=== PATIENT | female | born 1930 | race Caucasian/White ===

== ENCOUNTER 2017-06-12 17:10 | Emergency (ER) | payer MEDICARE, OTHER ==
[2017-06-12 18:02] VITALS: BP 172/81
[2017-06-12] MEDS ORDERED: Benzonatate 100 MG Cap PO ONE (19:13)
--- NOTE | 2017-06-12 19:22 | EDM.PDOC ---
ED HPI GENERAL MEDICAL PROBLEM - General Chief Complaint: Respiratory Problem Stated Complaint: SHARP PAINS UNDER RIBS W/COUGH Time Seen by Provider: 06/12/17 18:47 Source of Information: Reports: Patient History Limitations: Reports: No Limitations - History of Present Illness INITIAL COMMENTS - FREE TEXT/NARRATIVE: Patient is a 87-year-old female who presents to the E.D. complaining of intermittent productive cough, epigastric/chest pain, sinus congestion, and runny nose. States she has chronic congestion believed to be related to multiple allergies. States over the past few days has noted clear drainage from her nose. Cough has been intermittent with scant greenish/clear sputum. Pain to the epigastric region has persisted with worsening symptoms with coughing. Pain is described as a sharp pain that waxes and wanes with intensity. States has history of acid reflux with no recent worsening symptoms. Hx of constipation and notes last BM today described as formed, soft, with straining required. She has been passing gas, nothing excessive. Recently was treated for UTI completing treatment this past weekend. Has not had reevaluation to ensure resolution. She has no uti like symptoms with admission to the E.D. Denies SOB, N/V, Fever/Chills, diarrhea, blood in stool, palpitations, swelling to lower extremities or any additional complaints. Past medical history includes: Hypercholesterolemia, anxiety/depression, neuropathy, GERD, hypokalemia, sleep disturbances, osteoarthritis, hypertension , chronic constipation, UTI recurrent, depression, type 2 diabetes Current medications include: See list. 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: Other (see below) Other Treatments VAN DRIVER: coough drops and OTC cough syrup Upper Abdomen Pain Score (Numeric/FACES): 4 - Related Data Allergies Allergy/AdvReac Type Severity Reaction Status Date / Time No Known Allergies Allergy Verified 08/19/15 21:48 Home Meds: Home Meds ALPRAZolam [ALPRAZolam ER] 0.5 mg PO BID 02/08/14 [History] Aspirin [Екатерина Chewable Aspirin] 81 mg PO DAILY 02/08/14 [History] Gabapentin [Neurontin] 300 mg PO BID 02/08/14 [History] Glimepiride [Amaryl] 1 mg PO BID 02/08/14 [History] [place]onson-3 Fatty Acids [Bronson-3] 1,000 mg PO DAILY 02/08/14 [History] metFORMIN [Glucophage] 750 mg PO BID 02/08/14 [History] Sertraline [Zoloft] 50 mg PO BEDTIME 02/06/15 [History] Hydrochlorothiazide 12.5 mg PO DAILY 08/19/15 [History] Ibuprofen 400 mg PO BID PRN 08/19/15 [History] L Acidophil/B Lactis/B Longum [Florajen3] 460 mg PO DAILY 08/19/15 [History] Losartan [Cozaar] 25 mg PO DAILY 08/19/15 [History] Omeprazole 20 mg PO BID 08/19/15 [History] Potassium Chloride [Klor-Con M20] 20 meq PO DAILY 08/19/15 [History] Pravastatin [Pravachol] 10 mg PO MOWEFRSA 08/19/15 [History] traZODone 50 mg PO BEDTIME 08/19/15 [History] Lidocaine/Methyl Malik/Menthol [Lidopro Patch] 1 each TP DAILY 06/25/16 [History] Mirabegron [Myrbetriq] 50 mg PO BEDTIME 06/25/16 [History] Nitrofurantoin Monohyd/M-Cryst [Macrobid 100 mg Capsule] 100 mg PO BID 06/25/16 [History] Acetaminophen [Tylenol] 650 mg PO Q6H tablet 06/26/16 [Rx] Cephalexin [Keflex] 500 mg PO TID #30 capsule 06/26/16 [Rx] Past Medical History HEENT History: Reports: Cataract Cardiovascular History: Reports: High Cholesterol, Hypertension Gastrointestinal History: Reports: Chronic Constipation Genitourinary History: Reports: UTI, 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: Musculoskeletal History: Reports: Other (See Below) Other Musculoskeletal History: spinal stenosis Psychiatric History: Reports: Depression Endocrine/Metabolic History: Reports: Diabetes, Type II - Past Surgical History HEENT Surgical History: Reports: Cataract Surgery, Other (See Below) Social & Family History - Family History Family Medical History: Noncontributory - Tobacco Use Smoking Status *Q: Never Smoker Second Hand Smoke Exposure: No - Caffeine Use Caffeine Use: Reports: Coffee, Soda - Alcohol Use Days Per Week of Alcohol Use: 0 - Recreational Drug Use Recreational Drug Use: No - Living Situation & Occupation Living situation: Reports: , Alone, Assisted Living ED ROS GENERAL - Review of Systems Review Of Systems: See Below Constitutional: Denies: Fever, Chills, Malaise, Weakness, Fatigue, Decreased Appetite HEENT: Reports: Rhinitis. Denies: Ear Pain, Sinus Problem, Throat Pain Respiratory: Reports: Cough (intermittent, mildly productive), Sputum. Denies: Shortness of Breath, Wheezing, Pleuritic Chest Pain, Hemoptysis Cardiovascular: Reports: No Symptoms GI/Abdominal: Reports: Abdominal Pain, Constipation. Denies: Diarrhea, Decreased Appetite, Nausea, Vomiting : Reports: No Symptoms Musculoskeletal: Reports: No Symptoms Skin: Reports: No Symptoms Neurological: Denies: Dizziness, Headache ED EXAM, GENERAL - Physical Exam Exam: See Below Exam Limited By: No Limitations General Appearance: Alert, WD/WN, No Apparent Distress Eye Exam: Bilateral Eye: Normal Inspection, PERRL Ears: Normal External Exam, Normal Canal, Hearing Grossly Normal, Normal TMs Nose: Normal Inspection, Normal Mucosa, No Blood Throat/Mouth: Normal Inspection, Normal Oropharynx, Normal Voice, No Airway Compromise Neck: Normal Inspection, Supple, Non-Tender, Full Range of Motion. No: Lymphadenopathy (L), Lymphadenopathy (R) Respiratory/Chest: No Respiratory Distress, No Accessory Muscle Use, Chest Non- Tender Cardiovascular: Normal Peripheral Pulses, Regular Rate, Rhythm, No Murmur Peripheral Pulses: 2+: Radial (R) GI/Abdominal: Normal Bowel Sounds, Soft, No Organomegaly, No Distention, Tender (noted throughout with palpation. Epigastric > then remainder of the abdomen. ) . No: Guarding, Rigid, Rebound Back Exam: Normal Inspection Extremities: Normal Inspection, Non-Tender, No Pedal Edema, Normal Capillary Refill Neurological: Alert, Oriented, CN II-XII Intact, Normal Cognition, No Motor/ Sensory Deficits Psychiatric: Normal Affect, Normal Mood Skin Exam: Warm, Dry, Intact, Normal Color Course - Vital Signs Last Recorded V/S: Last Vital Signs Temp 97.8 F 06/12/17 17:58 Pulse 82 06/12/17 17:58 Resp 11 L 06/12/17 17:58 BP 172/81 H 06/12/17 17:58 Pulse Ox 97 06/12/17 17:58 - Orders/Labs/Meds Orders: Active Orders 24 hr Category Date Time Status EKG Documentation Completion [RC] STAT Care 06/12/17 19:21 Active Abdomen 2V AP Flat Upright [CR] Stat Exams 06/12/17 19:12 Taken Chest 2V [CR] Stat Exams 06/12/17 19:12 Taken UA W/MICROSCOPIC [URIN] Stat Lab 06/12/17 19:13 Uncollected Labs: Laboratory Tests 06/12/17 06/12/17 06/12/17 Range/Units 19:30 19:30 19:30 WBC 6.67 (3.98-10.04) K/mm3 RBC 3.98 (3.98-5.22) M/mm3 Hgb 11.8 (11.2-15.7) gm/L Hct 35.6 (34.1-44.9) % MCV 89.4 (79.4-94.8) fl MCH 29.6 (25.6-32.2) pg MCHC 33.1 (32.2-35.5) g/dl RDW Std Deviation 42.0 (36.4-46.3) fL Plt Count 205 (182-369) K/mm3 MPV 9.0 L (9.4-12.3) fl Neut % (Auto) 62.5 (34.0-71.1) % Lymph % (Auto) 18.0 L (19.3-51.7) % Clark % (Auto) 16.9 H (4.7-12.5) % Eos % (Auto) 1.9 (0.7-5.8) Baso % (Auto) 0.3 (0.1-1.2) % Neut # (Auto) 4.16 (1.56-6.13) K/mm3 Lymph # (Auto) 1.20 (1.18-3.74) K/mm3 Clark # (Auto) 1.13 H (0.24-0.36) K/mm3 Eos # (Auto) 0.13 (0.04-0.36) K/mm3 Baso # (Auto) 0.02 (0.01-0.08) K/mm3 Manual Slide Review Normal smear Sodium 134 L (136-145) mEq/L Potassium 3.7 (3.5-5.1) mEq/L Chloride 97 L (98-107) mEq/L Carbon Dioxide 30 (21-32) mEq/L Anion Gap 10.7 (5-15) BUN 11 (7-18) mg/dL Creatinine 1.1 H (0.55-1.02) mg/dL Est Cr Clr Drug Dosing 33.73 mL/min Estimated GFR (MDRD) 47 (>60) mL/min BUN/Creatinine Ratio 10.0 L (14-18) Glucose 186 H (83-115) mg/dL POC Glucose (83-110) mg/dL Calcium 9.0 (8.5-10.1) mg/dL Total Bilirubin 0.3 (0.2-1.0) mg/dL AST 14 L (15-37) U/L ALT 14 (14-59) U/L Alkaline Phosphatase 59 (46-116) U/L Troponin I < 0.017 (0.00-0.056) ng/mL C-Reactive Protein 0.8 (<1.0) mg/dL Total Protein 6.4 (6.4-8.2) g/dl Albumin 3.2 L (3.4-5.0) g/dl Globulin 3.2 gm/dL Albumin/Globulin Ratio 1.0 (1-2) Lipase 104 (73-393) U/L 06/12/17 Range/Units 20:20 WBC (3.98-10.04) K/mm3 RBC (3.98-5.22) M/mm3 Hgb (11.2-15.7) gm/L Hct (34.1-44.9) % MCV (79.4-94.8) fl MCH (25.6-32.2) pg MCHC (32.2-35.5) g/dl RDW Std Deviation (36.4-46.3) fL Plt Count (182-369) K/mm3 MPV (9.4-12.3) fl Neut % (Auto) (34.0-71.1) % Lymph % (Auto) (19.3-51.7) % Clark % (Auto) (4.7-12.5) % Eos % (Auto) (0.7-5.8) Baso % (Auto) (0.1-1.2) % Neut # (Auto) (1.56-6.13) K/mm3 Lymph # (Auto) (1.18-3.74) K/mm3 Clark # (Auto) (0.24-0.36) K/mm3 Eos # (Auto) (0.04-0.36) K/mm3 Baso # (Auto) (0.01-0.08) K/mm3 Manual Slide Review Sodium (136-145) mEq/L Potassium (3.5-5.1) mEq/L Chloride (98-107) mEq/L Carbon Dioxide (21-32) mEq/L Anion Gap (5-15) BUN (7-18) mg/dL Creatinine (0.55-1.02) mg/dL Est Cr Clr Drug Dosing mL/min Estimated GFR (MDRD) (>60) mL/min BUN/Creatinine Ratio (14-18) Glucose (83-115) mg/dL POC Glucose 162 H (83-110) mg/dL Calcium (8.5-10.1) mg/dL Total Bilirubin (0.2-1.0) mg/dL AST (15-37) U/L ALT (14-59) U/L Alkaline Phosphatase (46-116) U/L Troponin I (0.00-0.056) ng/mL C-Reactive Protein (<1.0) mg/dL Total Protein (6.4-8.2) g/dl Albumin (3.4-5.0) g/dl Globulin gm/dL Albumin/Globulin Ratio (1-2) Lipase (73-393) U/L Meds: Medications Discontinued Medications Generic Name Dose Route Start Last Admin Trade Name Freq PRN Reason Stop Dose Admin Benzonatate 200 mg 06/12/17 19:13 06/12/17 19:21 Tessalon Perles PO 06/12/17 19:14 200 mg ONETIME ONE Administration - Re-Assessments/Exams Free Text/Narrative Re-Assessment/Exam: Basic labs and studies ordered include: CBC, chem 14, lipase, UA, ekg, troponin , CRP, two-view of the chest, and 2 view of the abdomen flat and upright. Ordered Tessalon Perles 200 mg by mouth. No IV fluids or IV will be established this time oral mucosal is moist. I believe the patient's symptoms are's related to upper respiratory viral infection. Epigastric pain is worsened with coughing and palpation. She has a history constipation and states has had difficulty having a BM. In addition she also has history of recent urinary tract infection that was treated with oral antibiotics completed this past week. She has not been evaluated to ensure resolution. She has no uti like symptoms at this time. She did urinate with admission to the ED. No samples obtained. Labs reviewed: CBC was essentially normal. She panel revealed sodium 134, potassium 3.7, creatinine 1.1, glucose 186, troponin less than 0.017, lipase 104. CRP 0.8. X-ray of the abdomen revealed nonspecific air in stool patterns. Patient is feeling hungry and wishing to eat something. Rapid bedside blood glucose was checked and came back in the 160s. He will not wait for UA sample. They will follow up with PCP for reevaluation this week. Patient is wishing to be discharged home. Departure - Departure Time of Disposition: 20:30 Disposition: Home, Self-Care 01 Condition: Good Clinical Impression: Viral upper respiratory tract infection with cough, Epigastric abdominal pain Constipation Qualifiers: Constipation type: unspecified constipation type Qualified Code(s): K59.00 - Constipation, unspecified - Discharge Information Instructions: Upper Respiratory Infection, Adult, Dxhu-[id number] Referrals: PCP,None [Primary Care Provider] - Forms: ED Department Discharge Additional Instructions: As discussed believe etiology current complaint viral and will run its course of the next few days. Treatment is symptomatic care including Flonase 1-2 sprays each nares every day, nasal saline spray 1-2 sprays each nares every hour as needed, adequate rest, push the fluids, eat a balanced diet. For cough take Tessalon Perles one tab three times a day as needed. Treatment for recurrent constipation suggest utilizing MiraLAX one capful every day with copious amounts of water. With your constipation history suggest utilizing this on a daily basis for life. Follow-up with your PCP this coming week for reevaluation. Again UA sample should be obtained to ensure resolution. Return to ED for any new or worsening symptoms. - My Orders Last 24 Hours: My Active Orders 06/12/17 19:12 Abdomen 2V AP Flat Upright [CR] Stat Chest 2V [CR] Stat 06/12/17 19:13 UA W/MICROSCOPIC [URIN] Stat 06/12/17 19:21 EKG Documentation Completion [RC] STAT - Assessment/Plan Last 24 Hours: My Active Orders 06/12/17 19:12 Abdomen 2V AP Flat Upright [CR] Stat Chest 2V [CR] Stat 06/12/17 19:13 UA W/MICROSCOPIC [URIN] Stat 06/12/17 19:21 EKG Documentation Completion [RC] STAT
--- NOTE | 2017-06-14 12:49 | CR ---
Chest: Two views of the chest were obtained. Comparison: Previous chest x-ray of 02/06/15. Heart size is within normal limits. Tortuous thoracic aorta is seen. Slight scarring noted within the right lung base. Lungs otherwise are clear. Bony structures are unremarkable for the patient's age. Surgical clips are seen within the upper abdomen. Impression: 1. Incidental findings. Nothing acute is identified on two-view chest x-ray. Diagnostic code #2
--- NOTE | 2017-06-14 12:49 | CR ---
Abdomen: Supine and upright views of the abdomen were obtained. Comparison: Previous abdominal x-ray of 07/21/10. Surgical clips are seen from prior cholecystectomy. Mild scoliosis is noted within the spine. Previous lumbar laminectomy is seen. Scattered gas within small bowel and colon is seen which appears unremarkable. Vascular calcification is seen. Calcifications are identified within the pelvis which are compatible with phleboliths. Single surgical clip is seen within the pelvis. Impression: 1. Incidental findings. Nothing acute is appreciated. Diagnostic code #2
== END 2017-06-12 20:45 | disposition home or self-care (01) ==
LOC: JD.ED 17:10
DX: J06.9 Acute upper respiratory infection, unspecified (principal); K59.00 Constipation, unspecified; E78.00 Pure hypercholesterolemia, unspecified; K21.9 Gastro-esophageal reflux disease without esophagitis; E11.9 Type 2 diabetes mellitus without complications; I10 Essential (primary) hypertension; R10.13 Epigastric pain; Z79.82 Long term (current) use of aspirin; Z79.84 Long term (current) use of oral hypoglycemic drugs; Z79.899 Other long term (current) drug therapy; Z98.49 Cataract extraction status, unspecified eye; Z87.440 Personal history of urinary (tract) infections
CPT/HCPCS: 36415; 71020; 74020; 80053; 82962; 83690; 84484; 85025; 86140; 93005; 99284; A9270; 99283

== ENCOUNTER 2018-02-19 19:42 | Emergency (ER) | payer MEDICARE, OTHER ==
[2018-02-19 20:09] VITALS: BP 141/68
--- NOTE | 2018-02-19 23:32 | EDM.PDOC ---
ED HPI GENERAL MEDICAL PROBLEM - General Chief Complaint: Gastrointestinal Problem Stated Complaint: BLOOD IN STOOL AND CONSTIPATION Time Seen by Provider: 02/19/18 20:20 Source of Information: Reports: Patient History Limitations: Reports: No Limitations - History of Present Illness INITIAL COMMENTS - FREE TEXT/NARRATIVE: 87 year old female presents for evaluation and treatment of blood in her stool and constipation. Patient reports she has not had a significant bowel movement in the last 4-5 days, did have a small BM prior to arrival in the ER. Reports lower abdominal pressure and bloating. She takes colace on a regular basis and took some miralax a few days ago. No fevers, chills, nausea or vomiting. Patient reports she had a colonscopy a few years ago. Patient also reports bright red blood in her stool and on the tissue when she wipes. She does not know if she has a history of hemorrhoids. Reports some minor discomfort to her bottom. No melena. No dizziness, lightheadedness or syncope. - Related Data Allergies Allergy/AdvReac Type Severity Reaction Status Date / Time No Known Allergies Allergy Verified 08/19/15 21:48 Home Meds: Home Meds Aspirin [Екатерина Chewable Aspirin] 81 mg PO DAILY 02/08/14 [History] Gabapentin [Neurontin] 300 mg PO BID 02/08/14 [History] Glimepiride [Amaryl] 1 mg PO BID 02/08/14 [History] [place]-3 Fatty Acids [[place]-3] 1,000 mg PO DAILY 02/08/14 [History] metFORMIN [Glucophage] 750 mg PO BID 02/08/14 [History] Sertraline [Zoloft] 50 mg PO BEDTIME 02/06/15 [History] Hydrochlorothiazide 12.5 mg PO DAILY 08/19/15 [History] Ibuprofen 600 mg PO BID PRN 08/19/15 [History] Losartan [Cozaar] 25 mg PO DAILY 08/19/15 [History] Omeprazole 20 mg PO DAILY 08/19/15 [History] Potassium Chloride [Klor-Con M20] 20 meq PO DAILY 08/19/15 [History] Pravastatin [Pravachol] 10 mg PO MOWEFRSA 08/19/15 [History] traZODone 50 mg PO BEDTIME 08/19/15 [History] Lidocaine/Methyl Malik/Menthol [Lidopro Patch] 1 each TP DAILY 06/25/16 [History] Mirabegron [Myrbetriq] 50 mg PO BEDTIME 06/25/16 [History] Acetaminophen [Tylenol] 650 mg PO Q8HR 02/19/18 [History] Lactobacillus Acidophilus [Acidophilus Lactobacilli] 1 tab PO BID 02/19/18 [ History] Polyethylene Glycol 3350 17 gm PO ASDIRECTED PRN 02/19/18 [History] Past Medical History HEENT History: Reports: Cataract Cardiovascular History: Reports: High Cholesterol, Hypertension Gastrointestinal History: Reports: Chronic Constipation Genitourinary History: Reports: 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, 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: Musculoskeletal History: Reports: Other (See Below) Other Musculoskeletal History: spinal stenosis Psychiatric History: Reports: Depression Endocrine/Metabolic History: Reports: Diabetes, Type II - Past Surgical History HEENT Surgical History: Reports: Cataract Surgery Social & Family History - Family History Family Medical History: Noncontributory - Tobacco Use Smoking Status *Q: Never Smoker - Caffeine Use Caffeine Use: Reports: Coffee, Soda - Recreational Drug Use Recreational Drug Use: No - Living Situation & Occupation Living situation: Reports: , Alone, Assisted Living ED ROS GENERAL - Review of Systems Review Of Systems: See Below Constitutional: Denies: Fever, Chills GI/Abdominal: Reports: Abdominal Pain (pressure), Flatus (continues to pass flatus), Hematochezia. Denies: Melena, Nausea, Vomiting Neurological: Denies: Dizziness, Syncope ED EXAM, GI/ABD - Physical Exam Exam: See Below Exam Limited By: No Limitations General Appearance: Alert, WD/WN, No Apparent Distress Ears: Normal External Exam Nose: Normal Inspection Throat/Mouth: Normal Inspection, Normal Lips, Normal Voice, No Airway Compromise Respiratory/Chest: No Respiratory Distress, Lungs Clear, Normal Breath Sounds Cardiovascular: Normal Peripheral Pulses, Regular Rate, Rhythm, No Murmur GI/Abdominal Exam: Normal Bowel Sounds, Soft, Non-Tender Rectal (Female) Exam: Normal Exam, Normal Rectal Tone, Hemorrhoids. No: Fecal Impaction, Heme - Stool Neurological: Alert, Oriented, Normal Cognition Psychiatric: Normal Affect, Normal Mood Skin Exam: Warm, Dry, Normal Color Course - Vital Signs Last Recorded V/S: Last Vital Signs Temp 98.5 F 02/19/18 20:02 Pulse 85 02/19/18 20:02 Resp 16 02/19/18 20:02 BP 141/68 H 02/19/18 20:02 Pulse Ox 92 L 02/19/18 20:02 - Radiology Interpretation Free Text/Narrative:: flat and upright abdominal xray shows no acute process. Normal gas bowel pattern. - Re-Assessments/Exams Free Text/Narrative Re-Assessment/Exam: 02/19/18 22:20 I reviewed the xray results with the patient and her daughter. Will give the patient an enema here in the ER for constipation. 02/19/18 23:30 Patient has had a large bowel movement in the ER. Will discharge home at this time. Discharge instructions as documented. 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 Recommendations take MiraLAX every day or every other day. Make sure you are drinking plenty of fluids. For severe constipation you may take magnesium citrate. This is available over- the-counter. Drink about half of the 300 the bottle, if you do not have a large bowel movement you may drink the second half of the bottle about 12 hours later. Follow-up with your primary care provider as needed. Please return to the ER for symptoms change or worsen.
--- NOTE | 2018-02-21 11:27 | CR ---
Abdomen: Supine and upright views of the abdomen were obtained. Comparison: Prior abdominal x-ray of 06/12/17. Scoliosis and degenerative change is noted within the spine. Surgical clips are seen from prior cholecystectomy. Single surgical clip is also seen within the pelvis. Calcifications are identified within the pelvis compatible with phleboliths. Vascular calcification is noted. Bowel gas pattern appears within normal limits. No free air is seen. Impression: 1. Incidental findings as noted above. Diagnostic code #2
== END 2018-02-19 23:49 | disposition home or self-care (01) ==
LOC: JD.ED 19:42
DX: K64.9 Unspecified hemorrhoids (principal); I10 Essential (primary) hypertension; E11.9 Type 2 diabetes mellitus without complications; Z79.82 Long term (current) use of aspirin; Z79.899 Other long term (current) drug therapy
CPT/HCPCS: 74019; 74019-26; 99283

== ENCOUNTER 2018-09-09 17:25 | Emergency (ER) | payer MEDICARE, OTHER ==
[2018-09-09 17:42] VITALS: BP 182/85
[2018-09-09] MEDS ORDERED: Sodium Chloride 0.9% 500 ML IV ONE (18:18)
[2018-09-09] MEDS ORDERED: Ondansetron 4 MG/2 ML SDV IVPUSH ONE (18:18)
[2018-09-09] MEDS ORDERED: Sodium Chloride 0.9% 10 ML Syringe FLUSH PRN (18:18)
--- NOTE | 2018-09-09 19:58 | EDM.PDOC ---
ED HPI GENERAL MEDICAL PROBLEM - General Chief Complaint: Abdominal Pain Stated Complaint: DIAGNOSED WITH PNEUMONIA NOW HAS PAIN Time Seen by Provider: 09/09/18 18:16 Source of Information: Reports: Patient, RN Notes Reviewed - History of Present Illness INITIAL COMMENTS - FREE TEXT/NARRATIVE: 88-year-old female had difficulty with severe coughing 2 nights ago. Was seen at [facility] yesterday, started on Levaquin for what sounds like a mild pneumonia. She was already having some diarrhea yesterday. Today the diarrhea is much worse. It has been watery, somewhat frequent this past morning, not as bad this afternoon. She is also having left lower abdominal discomfort. Today she has not been coughing much at all. She's not been running fever today. She has not been vomiting. She has been thirsty, she has been drinking a lot of water. She did eat a small breakfast, she did have a hamburger for lunch. She is had some crackers this afternoon. No chest pain, she is not short of breath. Left Abdomen Pain Score (Numeric/FACES): 8 - Related Data Allergies Allergy/AdvReac Type Severity Reaction Status Date / Time No Known Allergies Allergy Verified 09/09/18 17:42 Home Meds: Home Meds Aspirin [Екатерина Chewable Aspirin] 81 mg PO DAILY 02/08/14 [History] Gabapentin [Neurontin] 300 mg PO BID 02/08/14 [History] Glimepiride [Amaryl] 1 mg PO BID 02/08/14 [History] [place]-3 Fatty Acids [[place]-3] 1,000 mg PO DAILY 02/08/14 [History] metFORMIN [Glucophage] 750 mg PO BID 02/08/14 [History] Ibuprofen 600 mg PO BID PRN 08/19/15 [History] Losartan [Cozaar] 25 mg PO DAILY 08/19/15 [History] Omeprazole 20 mg PO DAILY 08/19/15 [History] Potassium Chloride [Klor-Con M20] 20 meq PO DAILY 08/19/15 [History] Pravastatin [Pravachol] 10 mg PO MOWEFRSA 08/19/15 [History] hydroCHLOROthiazide [Hydrochlorothiazide] 12.5 mg PO DAILY 08/19/15 [History] traZODone 50 mg PO BEDTIME 08/19/15 [History] Lidocaine/Methyl [place]ik/Menthol [Lidopro Patch] 1 each TP DAILY PRN 06/25/16 [ History] Mirabegron [Myrbetriq] 50 mg PO BEDTIME 06/25/16 [History] Lactobacillus Acidophilus [Acidophilus Lactobacilli] 1 tab PO BIDMEALS 02/19/18 [History] Polyethylene Glycol 3350 17 gm PO ASDIRECTED 02/19/18 [History] ALPRAZolam [Xanax] 0.5 mg PO BID 09/09/18 [History] Acetaminophen [Tylenol] 650 mg PO TID 09/09/18 [History] Benzonatate 200 mg PO TID PRN 09/09/18 [History] Docusate Sodium [Colace] 100 mg PO TID 09/09/18 [History] Levofloxacin [Levaquin] 500 mg PO DAILY 09/09/18 [History] Loratadine [Claritin] 10 mg PO BEDTIME 09/09/18 [History] Sertraline [Zoloft] 50 mg PO BEDTIME 09/09/18 [History] Past Medical History HEENT History: Reports: Cataract Cardiovascular History: Reports: High Cholesterol, Hypertension Respiratory History: Reports: Pneumonia, Recurrent Gastrointestinal History: Reports: Chronic Constipation Genitourinary History: Reports: UTI, Recurrent CARDIOVASCULAR SURGICAL TECH History: Reports: Musculoskeletal History: Reports: Other (See Below) Other Musculoskeletal History: spinal stenosis Psychiatric History: Reports: Depression Endocrine/Metabolic History: Reports: Diabetes, Type II - Past Surgical History HEENT Surgical History: Reports: Cataract Surgery Social & Family History - Family History Family Medical History: Noncontributory - Tobacco Use Smoking Status *Q: Never Smoker - Caffeine Use Caffeine Use: Reports: None - Recreational Drug Use Recreational Drug Use: No - Living Situation & Occupation Living situation: Reports: , Alone, Assisted Living ED ROS GENERAL - Review of Systems Review Of Systems: See Below Constitutional: Denies: Fever, Chills, Diaphoresis HEENT: Denies: Rhinitis, Sinus Problem, Throat Pain Respiratory: Reports: Cough (now better). Denies: Shortness of Breath, Wheezing Cardiovascular: Denies: Chest Pain GI/Abdominal: Reports: Abdominal Pain (Left lower abdomen), Diarrhea (Watery, worse yesterday and this past morning), Nausea. Denies: Vomiting Musculoskeletal: Denies: Back Pain, Leg Pain Skin: Reports: No Symptoms Neurological: Reports: No Symptoms ED EXAM, GI/ABD - Physical Exam Exam: See Below General Appearance: Alert, No Apparent Distress Throat/Mouth: Normal Inspection Neck: Supple Respiratory/Chest: No Respiratory Distress, Lungs Clear, Normal Breath Sounds. No: Rhonchi, Wheezing Cardiovascular: Regular Rate, Rhythm GI/Abdominal Exam: Soft, Tender. No: Guarding, Rebound (Mild tenderness left lower abdomen, remainder of abdomen soft and nontender) Back Exam: No: CVA Tenderness (L), CVA Tenderness (R) Extremities: Normal Inspection. No: Pedal Edema, Leg Pain Neurological: Alert, Oriented, No Motor/Sensory Deficits Skin Exam: Warm, Dry, Normal Color Course - Vital Signs Last Recorded V/S: Last Vital Signs Temp 98.6 F 09/09/18 17:36 Pulse 80 09/09/18 17:36 Resp 20 09/09/18 17:36 BP 182/85 H 09/09/18 17:36 Pulse Ox 100 09/09/18 17:36 - Orders/Labs/Meds Orders: Active Orders 24 hr Category Date Time Status Peripheral IV Care [RC] . DIRECTED Care 09/09/18 18:18 Active C DIFFICILE BY PCR W/NAP1 [MOLEC] Stat Lab 09/09/18 18:19 Ordered Peripheral IV Insertion Adult [OM.PC] Stat Oth 09/09/18 18:18 Ordered Labs: Laboratory Tests 09/09/18 09/09/18 09/09/18 Range/Units 18:01 19:01 19:01 WBC 8.41 (3.98-10.04) K/mm3 RBC 4.06 (3.98-5.22) M/mm3 Hgb 12.1 (11.2-15.7) gm/L Hct 36.2 (34.1-44.9) % MCV 89.2 (79.4-94.8) fl MCH 29.8 (25.6-32.2) pg MCHC 33.4 (32.2-35.5) g/dl RDW Std Deviation 41.3 (36.4-46.3) fL Plt Count 276 (182-369) K/mm3 MPV 8.6 L (9.4-12.3) fl Neutrophils % (Manual) 64 H (40-60) % Band Neutrophils % 0 (0-10) % Lymphocytes % (Manual) 18 L (20-40) % Atypical Lymphs % 0 % Monocytes % (Manual) 17 H (2-10) % Eosinophils % (Manual) 1 (0.7-5.8) % Basophils % (Manual) 0 L (0.1-1.2) Toxic Granulation 1+ slight Dohle Bodies Few Platelet Estimate Adequate Plt Morphology Comment Normal RBC Morph Comment Normal Sodium 127 L (136-145) mEq/L Potassium 4.0 (3.5-5.1) mEq/L Chloride 92 L (98-107) mEq/L Carbon Dioxide 29 (21-32) mEq/L Anion Gap 10.0 (5-15) BUN 8 (7-18) mg/dL Creatinine 1.0 (0.55-1.02) mg/dL Est Cr Clr Drug Dosing 34.99 mL/min Estimated GFR (MDRD) 52 (>60) mL/min BUN/Creatinine Ratio 8.0 L (14-18) Glucose 195 H (83-115) mg/dL POC Glucose 224 H (83-110) mg/dL Calcium 9.0 (8.5-10.1) mg/dL Total Bilirubin 0.3 (0.2-1.0) mg/dL AST 13 L (15-37) U/L ALT 15 (14-59) U/L Alkaline Phosphatase 64 (46-116) U/L Total Protein 6.9 (6.4-8.2) g/dl Albumin 2.9 L (3.4-5.0) g/dl Globulin 4.0 gm/dL Albumin/Globulin Ratio 0.7 L (1-2) Meds: Medications Discontinued Medications Generic Name Dose Route Start Last Admin Trade Name Freq PRN Reason Stop Dose Admin Sodium Chloride 500 mls @ 999 mls/hr 09/09/18 18:18 09/09/18 19:01 Normal Saline IV 09/09/18 18:48 999 mls/hr .BOLUS ONE Administration Morphine Sulfate 2 mg 09/09/18 20:10 09/09/18 20:26 Morphine IVPUSH 09/09/18 20:11 2 mg ONETIME ONE Administration Ondansetron HCl 4 mg 09/09/18 18:18 09/09/18 19:19 Zofran IVPUSH 09/09/18 18:19 Not Given ONETIME ONE Sodium Chloride 10 ml 09/09/18 18:18 09/09/18 19:01 Saline Flush FLUSH 10 ml ASDIRECTED PRN Administration Keep Vein Open Zolpidem Tartrate 5 mg 09/09/18 20:14 Ambien PO BEDTIME PRN Insomnia Zolpidem Tartrate 5 mg 09/09/18 20:21 09/09/18 20:34 Ambien PO 09/09/18 20:22 2.5 mg BEDTIME ONE Administration - Re-Assessments/Exams Free Text/Narrative Re-Assessment/Exam: 09/09/18 20:26 White blood count is normal. 64 segs 0 bands. She is afebrile, not coughing while here in the ED, her chest x-ray does not show obvious infiltrate at this time her chemistries are relatively okay, sodium mildly low at 127. She has been drinking a lot of water today. Have given most of 1 L of normal saline. We' ll give 2 mg morphine now for mild discomfort left lower abdomen. Her daughter states that a big problem has been not been able to sleep much the last 2 nights. Looking at her meds she does take trazodone in the evening and also is on Xanax 0.5 twice a day. Patient and daughter states she has had great difficulty sleeping even with those meds. We will go ahead and give her 2.5 mg Ambien tonight and also send the other half home to help her better rest tomorrow evening. Discharge instructions as documented. Departure - Departure Time of Disposition: 20:19 Disposition: Home, Self-Care 01 Condition: Fair Clinical Impression: Diarrhea Qualifiers: Diarrhea type: unspecified type Qualified Code(s): R19.7 - Diarrhea, unspecified Abdominal pain Qualifiers: Abdominal location: left lower quadrant Qualified Code(s): R10.32 - Left lower quadrant pain Insomnia Qualifiers: Insomnia type: unspecified Qualified Code(s): G47.00 - Insomnia, unspecified - Discharge Information Instructions: Abdominal Pain, Adult, Insomnia Referrals: Andi Winston MD [Primary Care Provider] - Forms: ED Department Discharge Additional Instructions: Clear liquids until tomorrow afternoon, then very careful bland diet as tolerated. Avoid milk and dairy products for at least 2 days. Increase probiotic to twice daily. Your chest x-ray this evening does not show obvious pneumonia. White blood count is normal. Therefore it is safe and will be better to stop the Levaquin antibiotic. You have been given morphine 2 mg IV for pain. Given IV fluid, Zofran IV for nausea. You've been given Ambien 2.5 mg IV to help you sleep. He may take the remaining 2.5 mg Ambien tomorrow evening to help you sleep better tomorrow night. Follow-up clinic if not better by Wednesday. Return to ED as needed if symptoms worsening in any way. - My Orders Last 24 Hours: My Active Orders 09/09/18 18:18 Peripheral IV Care [RC] . DIRECTED Peripheral IV Insertion Adult [OM.PC] Stat 09/09/18 18:19 C DIFFICILE BY PCR W/NAP1 [MOLEC] Stat - Assessment/Plan Last 24 Hours: My Active Orders 09/09/18 18:18 Peripheral IV Care [RC] . DIRECTED Peripheral IV Insertion Adult [OM.PC] Stat 09/09/18 18:19 C DIFFICILE BY PCR W/NAP1 [MOLEC] Stat
[2018-09-09] MEDS ORDERED: Morphine 2 MG/ML Syringe IVPUSH ONE (20:10)
[2018-09-09] MEDS ORDERED: Zolpidem 5 MG Tab PO PRN (20:14)
[2018-09-09] MEDS ORDERED: Zolpidem 5 MG Tab PO ONE (20:21)
--- NOTE | 2018-09-10 08:32 | CR ---
Chest: Portable view of the chest was obtained. Comparison: Prior chest x-ray of 06/12/17. Heart size appears within normal limits for portable technique. Tortuous thoracic aorta is seen. Lungs are clear with no acute parenchymal change. Incidental note of minimal bibasilar atelectasis. Bony structures are osteopenic. Impression: 1. Incidental findings. Nothing acute is appreciated. Diagnostic code #2
== END 2018-09-09 21:02 | disposition home or self-care (01) ==
LOC: JD.ED 17:25
DX: G47.00 Insomnia, unspecified (principal); R19.7 Diarrhea, unspecified; R10.32 Left lower quadrant pain; I10 Essential (primary) hypertension; E11.9 Type 2 diabetes mellitus without complications; E78.00 Pure hypercholesterolemia, unspecified; Z79.82 Long term (current) use of aspirin; Z79.899 Other long term (current) drug therapy; Z79.84 Long term (current) use of oral hypoglycemic drugs
CPT/HCPCS: 36415; 71045; 80053; 82962; 85007; 85027; 96361; 96374; 99284; A9270; J2270; J7040

== ENCOUNTER 2019-05-16 17:45 | Emergency (ER) | payer MEDICARE, OTHER ==
[2019-05-16] MEDS ORDERED: Acetaminophen/HYDROcodone 325-5 MG Tab PO ONE (18:40)
--- NOTE | 2019-05-16 20:58 | EDM.PDOC ---
ED HPI GENERAL MEDICAL PROBLEM - General Chief Complaint: General Stated Complaint: PAIN IN ENTIRE BODY Time Seen by Provider: 05/16/19 18:30 Source of Information: Reports: Patient, Family History Limitations: Reports: No Limitations - History of Present Illness INITIAL COMMENTS - FREE TEXT/NARRATIVE: 89-year-old female presents for evaluation and treatment of body aches. Patient reports body aches for the last few days. Has been treated with Tylenol and Motrin for the body aches. was at the walk-in clinic 3 days ago and had a UA which is negative. Daughter reports she is prone to UTIs. Current symptoms include body aches, nausea, poor appetite, bilateral leg pain, low back pain and malaise. She did have some abdominal pain yesterday. No chest pain, cough or any vomiting. She states that she's had "a little bit "of diarrhea. She also reports some "pressure in her head ". She has not had any falls recently. She always has back pain but feels that the back pain is worse than normal. She history spinal stenosis. She also has a history of type 2 diabetes. Primary care providers is Jasmin Carlson Generalized Pain Score (Numeric/FACES): 8 - Related Data Allergies Allergy/AdvReac Type Severity Reaction Status Date / Time No Known Allergies Allergy Verified 04/01/19 21:14 Home Meds: Home Meds Aspirin [Екатерина Chewable Aspirin] 81 mg PO DAILY 02/08/14 [History] Gabapentin [Neurontin] 300 mg PO BID 02/08/14 [History] Glimepiride [Amaryl] 1 mg PO BID 02/08/14 [History] [place]-3 Fatty Acids [[place]-3] 1,000 mg PO DAILY 02/08/14 [History] metFORMIN [Glucophage] 750 mg PO BID 02/08/14 [History] Ibuprofen 600 mg PO BID PRN 08/19/15 [History] Losartan [Cozaar] 25 mg PO DAILY 08/19/15 [History] Omeprazole 20 mg PO DAILY 08/19/15 [History] Potassium Chloride [Klor-Con M20] 20 meq PO DAILY 08/19/15 [History] Pravastatin [Pravachol] 10 mg PO MOWEFRSA 08/19/15 [History] hydroCHLOROthiazide [Hydrochlorothiazide] 12.5 mg PO DAILY 08/19/15 [History] traZODone 50 mg PO BEDTIME 08/19/15 [History] Lidocaine/Methyl [place]/Menthol [Lidopro Patch] 1 each TP DAILY PRN 06/25/16 [ History] Mirabegron [Myrbetriq] 50 mg PO BEDTIME 06/25/16 [History] Lactobacillus Acidophilus [Acidophilus Lactobacilli] 1 tab PO BIDMEALS 02/19/18 [History] Polyethylene Glycol 3350 17 gm PO ASDIRECTED 02/19/18 [History] ALPRAZolam [Xanax] 0.5 mg PO BID 09/09/18 [History] Acetaminophen [Tylenol] 650 mg PO TID 09/09/18 [History] Benzonatate 200 mg PO TID PRN 09/09/18 [History] Docusate Sodium [Colace] 100 mg PO TID 09/09/18 [History] Loratadine [Claritin] 10 mg PO BEDTIME 09/09/18 [History] Sertraline [Zoloft] 50 mg PO BEDTIME 09/09/18 [History] traMADol [Ultram] 50 - 100 mg PO Q6H PRN #20 tab 04/01/19 [Rx] Cephalexin [Keflex] 500 mg PO BID #10 capsule 05/16/19 [Rx] Past Medical History HEENT History: Reports: Cataract Cardiovascular History: Reports: High Cholesterol, Hypertension Respiratory History: Reports: Pneumonia, Recurrent Gastrointestinal History: Reports: Chronic Constipation Genitourinary History: Reports: UTI, Recurrent [employer] History: Reports: Musculoskeletal History: Reports: Other (See Below) Other Musculoskeletal History: spinal stenosis Psychiatric History: Reports: Depression Endocrine/Metabolic History: Reports: Diabetes, Type II - Past Surgical History HEENT Surgical History: Reports: Cataract Surgery Social & Family History - Family History Family Medical History: Noncontributory - Tobacco Use Smoking Status *Q: Never Smoker Second Hand Smoke Exposure: No - Caffeine Use Caffeine Use: Reports: None - Recreational Drug Use Recreational Drug Use: No - Living Situation & Occupation Living situation: Reports: , Alone, Assisted Living ED ROS GENERAL - Review of Systems Review Of Systems: See Below Constitutional: Reports: Chills, Malaise, Fatigue, Decreased Appetite, Other ( Body aches). Denies: Fever Respiratory: Denies: Cough Cardiovascular: Denies: Chest Pain GI/Abdominal: Reports: Nausea. Denies: Abdominal Pain (Yesterday, none today), Vomiting Musculoskeletal: Reports: Back Pain (Chronic feels it is worse than normal), Leg Pain (Bilateral) Neurological: Reports: Headache (Reports pressure in her head) ED EXAM, GENERAL - Physical Exam Exam: See Below Exam Limited By: No Limitations General Appearance: Alert, WD/WN, No Apparent Distress Eye Exam: Bilateral Eye: Normal Inspection Ears: Normal External Exam, Hearing Loss Nose: Normal Inspection Throat/Mouth: Normal Inspection, Normal Lips, Normal Oropharynx, Normal Voice, No Airway Compromise Respiratory/Chest: No Respiratory Distress, Lungs Clear, Normal Breath Sounds Cardiovascular: Normal Peripheral Pulses, Regular Rate, Rhythm, No Murmur GI/Abdominal: Normal Bowel Sounds, Soft, Non-Tender Neurological: Alert, Oriented, Normal Cognition Psychiatric: Normal Affect, Normal Mood Skin Exam: Warm, Dry, Normal Color Course - Vital Signs Last Recorded V/S: Last Vital Signs Temp 97.4 F 05/16/19 17:55 Pulse 81 05/16/19 21:17 Resp 16 05/16/19 21:17 BP 163/69 H 05/16/19 21:17 Pulse Ox 93 L 05/16/19 21:17 - Orders/Labs/Meds Labs: Laboratory Tests 05/16/19 05/16/19 05/16/19 Range/Units 09:22 18:55 18:55 WBC 6.74 (3.98-10.04) K/mm3 RBC 4.23 (3.98-5.22) M/mm3 Hgb 12.4 (11.2-15.7) gm/L Hct 37.6 (34.1-44.9) % MCV 88.9 (79.4-94.8) fl MCH 29.3 (25.6-32.2) pg MCHC 33.0 (32.2-35.5) g/dl RDW Std Deviation 42.1 (36.4-46.3) fL Plt Count 243 (182-369) K/mm3 MPV 9.0 L (9.4-12.3) fl Neutrophils % (Manual) 64 H (40-60) % Band Neutrophils % 0 (0-10) % Lymphocytes % (Manual) 26 (20-40) % Atypical Lymphs % 0 % Monocytes % (Manual) 8 (2-10) % Eosinophils % (Manual) 2 (0.7-5.8) % Basophils % (Manual) 0 L (0.1-1.2) Platelet Estimate Adequate RBC Morph Comment Normal Sodium 130 L (136-145) mEq/L Potassium 4.1 (3.5-5.1) mEq/L Chloride 94 L (98-107) mEq/L Carbon Dioxide 28 (21-32) mEq/L Anion Gap 12.1 (5-15) BUN 13 (7-18) mg/dL Creatinine 1.1 H (0.55-1.02) mg/dL Est Cr Clr Drug Dosing 29.94 mL/min Estimated GFR (MDRD) 47 (>60) mL/min BUN/Creatinine Ratio 11.8 L (14-18) Glucose 147 H (83-115) mg/dL Calcium 9.0 (8.5-10.1) mg/dL Total Bilirubin 0.4 (0.2-1.0) mg/dL AST 13 L (15-37) U/L ALT 14 (14-59) U/L Alkaline Phosphatase 64 (46-116) U/L Total Protein 7.0 (6.4-8.2) g/dl Albumin 3.3 L (3.4-5.0) g/dl Globulin 3.7 gm/dL Albumin/Globulin Ratio 0.9 L (1-2) Urine Color Yellow (Yellow) Urine Appearance Clear (Clear) Urine pH 7.0 (5.0-8.0) Ur Specific [place] 1.015 (1.005-1.030) Urine Protein Negative (Negative) Urine Glucose (UA) Negative (Negative) Urine Ketones Negative (Negative) Urine Occult Blood Trace-intact H (Negative) Urine Nitrite Negative (Negative) Urine Bilirubin Negative (Negative) Urine Urobilinogen 0.2 (0.2-1.0) Ur Leukocyte Esterase 1+ H (Negative) Urine RBC 5-10 H (0-5) /hpf Urine WBC 10-20 H (0-5) /hpf Ur Squamous Epith Cells 0-5 (0-5) /hpf Amorphous Sediment Rare H (NOT SEEN) /hpf Urine Bacteria Moderate H (FEW) /hpf Urine Mucus Not seen (FEW) /hpf Meds: Medications Discontinued Medications Generic Name Dose Route Start Last Admin Trade Name Freq PRN Reason Stop Dose Admin Hydrocodone Bitart/Acetaminophen 0.5 tab 05/16/19 18:40 05/16/19 19:08 [place] 325-5 Mg PO 05/16/19 18:41 0.5 tab ONETIME ONE Administration Cephalexin 500 mg 05/16/19 21:02 05/16/19 21:16 Keflex PO 05/16/19 21:03 500 mg ONETIME ONE Administration - Radiology Interpretation Free Text/Narrative:: chest xray shows no acute intrathoracic process. KUB shows no acute intraabdominal process. formal radiology read pending. - Re-Assessments/Exams Free Text/Narrative Re-Assessment/Exam: 05/16/19 20:50 Reviewed the labs and the imaging with the patient and her daughter. Will treat for UTI. urine sent for cultures. Recommend follow-up in the clinic. Discharge instructions as documented. Departure - Departure Time of Disposition: 20:53 Disposition: Home, Self-Care 01 Condition: Fair Clinical Impression: UTI, Urinary tract infectious disease - Discharge Information *PRESCRIPTION DRUG MONITORING PROGRAM REVIEWED*: No *COPY OF PRESCRIPTION DRUG MONITORING REPORT IN PATIENT MYKE: No Prescriptions: Cephalexin [Keflex] 500 mg PO BID #10 capsule Instructions: Urinary Tract Infection, Adult Referrals: Jasmin Carlson, HYDROGRAPHIC SURVEYOR [Primary Care Provider] - Forms: ED Department Discharge Additional Instructions: cephalexin 1 cap PO bid x 5 days. take with food. recommend yogurt or a probiotic. follow-up with PCP this week fo r recheck of symptoms. recommend drinking Gatorade, powered and consuming salt. your sodium was low in the er today. Please return to the ER should yours symptoms change or worsen.
[2019-05-16] MEDS ORDERED: Cephalexin 500 MG Cap PO ONE (21:02)
[2019-05-16 21:17] VITALS: BP 163/69; PULSE 81
--- NOTE | 2019-05-17 06:27 | CR ---
Abdomen: Supine view of the abdomen was obtained. Comparison: Previous abdominal x-ray of 02/19/18. Scoliosis is noted within the spine. Degenerative change is also noted within the spine. Bowel gas pattern is within normal limits. Calcifications are seen within the pelvis which are felt compatible with phleboliths. Surgical clips are noted from prior cholecystectomy. Impression: 1. Findings as noted above. Nothing acute is appreciated. Diagnostic code #2
--- NOTE | 2019-05-17 06:27 | CR ---
Chest: AP view of the chest was obtained. Comparison: Prior chest x-ray of 09/09/18. Heart size is within normal limits for AP technique. Tortuous thoracic aorta is seen. Lungs are clear with no acute parenchymal change. Slightly prominent upper mediastinum is seen which is a stable finding. Impression: 1. Nothing acute is appreciated on AP chest x-ray. Diagnostic code #2
== END 2019-05-16 22:04 | disposition home or self-care (01) ==
LOC: JD.ED 17:45
DX: N39.0 Urinary tract infection, site not specified (principal); I10 Essential (primary) hypertension; E11.9 Type 2 diabetes mellitus without complications; Z79.84 Long term (current) use of oral hypoglycemic drugs; Z79.899 Other long term (current) drug therapy; Z79.82 Long term (current) use of aspirin; Z98.49 Cataract extraction status, unspecified eye
CPT/HCPCS: 36415; 71045; 74018; 80053; 81001; 85007; 85027; 87086; 87088; 87184; 99283; A9270

== ENCOUNTER 2019-05-29 11:36 | Inpatient (IN) | payer MEDICARE, OTHER ==
[2019-05-29] MEDS ORDERED: Sodium Chloride 0.9% 10 ML Syringe FLUSH PRN (12:14)
[2019-05-29] MEDS ORDERED: Sodium Chloride 0.9% 1,000 ML IV SCH ×2 (12:15→18:30)
--- NOTE | 2019-05-29 13:58 | EDM.PDOC ---
ED HPI GENERAL MEDICAL PROBLEM - General Chief Complaint: Gastrointestinal Problem Stated Complaint: LOW SODIUM Time Seen by Provider: 05/29/19 11:52 Source of Information: Reports: Patient, Family, RN Notes Reviewed - History of Present Illness INITIAL COMMENTS - FREE TEXT/NARRATIVE: 89-year-old female has been referred to the ED by here clinic provider for nausea vomiting, generalized weakness, as well as worsening confusion. Worsening confusion over the past 2-3 weeks. She has been more sleepy, according to family "wants to sleep all the time". The vomiting started about 2 days ago after taking her morning and evening meds the past 2 days. At time of my evaluation she did deny chest or abdominal pain. There has been no voiding symptomatology. She has had frequent visits to the clinic the past 2 weeks with her not feeling well. Na has been running low with a reading of 124 4 days ago. Labs were drawn over at the clinic side this morning and then sent here for evaluation, probable admission. She does have type 2 diabetes. She did have a head CT last week that was found to be normal. She's had a lot of generalized pain and achiness, sedimentation rate was done to rule out severe inflammatory disease and that was only 11. See prior records and labs for more information. She does live at [facility]. Family states that her current condition is a dramatic change from about 3 weeks ago when she was actually functioning quite well. - Related Data Allergies Allergy/AdvReac Type Severity Reaction Status Date / Time No Known Allergies Allergy Verified 05/29/19 11:52 Home Meds: Home Meds Aspirin [Екатерина Chewable Aspirin] 81 mg PO DAILY 02/08/14 [History] Gabapentin [Neurontin] 300 mg PO BID 02/08/14 [History] Glimepiride [Amaryl] 1 mg PO BID 02/08/14 [History] [place]-3 Fatty Acids [[place]-3] 1,000 mg PO DAILY 02/08/14 [History] metFORMIN [Glucophage] 750 mg PO BID 02/08/14 [History] Ibuprofen 600 mg PO BID PRN 08/19/15 [History] Losartan [Cozaar] 25 mg PO DAILY 08/19/15 [History] Omeprazole 20 mg PO DAILY 08/19/15 [History] Potassium Chloride [Klor-Con M20] 20 meq PO DAILY 08/19/15 [History] Pravastatin [Pravachol] 10 mg PO MOWEFRSA 08/19/15 [History] hydroCHLOROthiazide [Hydrochlorothiazide] 12.5 mg PO DAILY 08/19/15 [History] traZODone 50 mg PO BEDTIME 08/19/15 [History] Lidocaine/Methyl [place]/Menthol [Lidopro Patch] 1 each TP DAILY PRN 06/25/16 [ History] Mirabegron [Myrbetriq] 50 mg PO BEDTIME 06/25/16 [History] Lactobacillus Acidophilus [Acidophilus Lactobacilli] 1 tab PO DAILY 02/19/18 [ History] Polyethylene Glycol 3350 17 gm PO ASDIRECTED 02/19/18 [History] ALPRAZolam [Xanax] 0.5 mg PO BID 09/09/18 [History] Acetaminophen [Tylenol] 650 mg PO TID 09/09/18 [History] Benzonatate 200 mg PO TID PRN 09/09/18 [History] Docusate Sodium [Colace] 100 mg PO TID 09/09/18 [History] Loratadine [Claritin] 10 mg PO BEDTIME 09/09/18 [History] Sertraline [Zoloft] 50 mg PO BEDTIME 09/09/18 [History] traMADol [Ultram] 50 - 100 mg PO Q6H PRN #20 tab 04/01/19 [Rx] Cephalexin [Keflex] 500 mg PO BID #10 capsule 05/16/19 [Rx] Past Medical History HEENT History: Reports: Cataract Cardiovascular History: Reports: High Cholesterol, Hypertension Respiratory History: Reports: Pneumonia, Recurrent Gastrointestinal History: Reports: Chronic Constipation Genitourinary History: Reports: UTI, Recurrent 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: Musculoskeletal History: Reports: Other (See Below) Other Musculoskeletal History: spinal stenosis Psychiatric History: Reports: Depression Endocrine/Metabolic History: Reports: Diabetes, Type II - Past Surgical History HEENT Surgical History: Reports: Cataract Surgery Social & Family History - Family History Family Medical History: Noncontributory - Tobacco Use Smoking Status *Q: Never Smoker - Caffeine Use Caffeine Use: Reports: None - Recreational Drug Use Recreational Drug Use: No - Living Situation & Occupation Living situation: Reports: , Alone, Assisted Living ED ROS GENERAL - Review of Systems Review Of Systems: See Below Constitutional: Denies: Fever, Chills, Diaphoresis HEENT: Denies: Sinus Problem, Throat Pain Respiratory: Reports: Shortness of Breath Cardiovascular: Denies: Chest Pain (Mild) GI/Abdominal: Reports: Abdominal Pain (Intermittent), Nausea (For the last 2 days), Vomiting Musculoskeletal: Reports: Back Pain (Chronic) Skin: Reports: No Symptoms Neurological: Reports: Confusion, Dizziness, Difficulty Walking, Weakness ( Generalized), Other (Drowsiness). Denies: Trouble Speaking ED EXAM, GI/ABD - Physical Exam Exam: See Below General Appearance: Alert, No Apparent Distress, Other (Moderately drowsy) Eyes: Bilateral: Normal Appearance Ears: Normal External Exam Throat/Mouth: Normal Inspection, Normal Oropharynx Head: Atraumatic Neck: Supple, Other Respiratory/Chest: No Respiratory Distress (No JVD), Lungs Clear, Normal Breath Sounds Cardiovascular: Regular Rate, Rhythm GI/Abdominal Exam: Soft, Non-Tender Back Exam: No: CVA Tenderness (L), CVA Tenderness (R) Extremities: Normal Inspection, Normal Range of Motion. No: Pedal Edema, Leg Pain, Redness Neurological: No Motor/Sensory Deficits, Slow to Respond (Moderately drowsy but arousable, does answer simple questions appropriately) Skin Exam: Warm, Dry, Normal Color Course - Vital Signs Last Recorded V/S: Last Vital Signs Temp 98.8 F 05/29/19 11:53 Pulse 81 05/29/19 11:53 Resp 16 05/29/19 11:53 BP 148/87 H 05/29/19 11:53 Pulse Ox 98 05/29/19 11:53 - Orders/Labs/Meds Orders: Active Orders 24 hr Category Date Time Status Admission Status [Patient Status] [ADT] Routine ADT 05/29/19 16:05 Active Peripheral IV Care [RC] . DIRECTED Care 05/29/19 12:15 Active Abdomen 2V AP Flat Upright [CR] Stat Exams 05/29/19 14:12 Taken UA W/MICROSCOPIC [URIN] Stat Lab 05/29/19 12:30 Results Sodium Chloride 0.9% [Normal Saline] 1,000 ml Med 05/29/19 12:15 Active IV ONETIME Sodium Chloride 0.9% [Saline Flush] Med 05/29/19 12:14 Active 10 ml FLUSH ASDIRECTED PRN Peripheral IV Insertion Adult [OM.PC] Stat Oth 05/29/19 12:14 Ordered Medication Orders Sodium Chloride (Normal Saline) 1,000 mls @ 999 mls/hr IV ONETIME SRAVAN Last Admin: 05/29/19 12:29 Dose: 999 mls/hr Sodium Chloride (Saline Flush) 10 ml FLUSH ASDIRECTED PRN PRN Reason: Keep Vein Open Last Admin: 05/29/19 12:27 Dose: 10 ml Labs: Laboratory Tests 05/29/19 Range/Units 12:30 Urine Color Yellow (Yellow) Urine Appearance Clear (Clear) Urine pH 7.0 (5.0-8.0) Ur Specific [place] 1.015 (1.005-1.030) Urine Protein Negative (Negative) Urine Glucose (UA) 2+ H (Negative) Urine Ketones Negative (Negative) Urine Occult Blood Negative (Negative) Urine Nitrite Negative (Negative) Urine Bilirubin Negative (Negative) Urine Urobilinogen 0.2 (0.2-1.0) Ur Leukocyte Esterase Negative (Negative) Urine RBC 0-5 (0-5) /hpf Urine WBC Not seen (0-5) /hpf Ur Squamous Epith Cells Not seen (0-5) /hpf Urine Bacteria Not seen (FEW) /hpf Meds: Medications Generic Name Dose Route Start Last Admin Trade Name Freq PRN Reason Stop Dose Admin Sodium Chloride 1,000 mls @ 999 mls/hr 05/29/19 12:15 05/29/19 12:29 Normal Saline IV 999 mls/hr ONETIME SRAVAN Administration Sodium Chloride 10 ml 05/29/19 12:14 05/29/19 12:27 Saline Flush FLUSH 10 ml ASDIRECTED PRN Administration Keep Vein Open Discontinued Medications Generic Name Dose Route Start Last Admin Trade Name Freq PRN Reason Stop Dose Admin Ondansetron HCl 4 mg 05/29/19 14:11 05/29/19 14:23 Zofran IVPUSH 05/29/19 14:12 4 mg ONETIME ONE Administration - Re-Assessments/Exams Free Text/Narrative Re-Assessment/Exam: 05/29/19 16:41 Sodium today is 128, other labs as noted glucose somewhat elevated at 265. He is noted to be quite sleepy while here in the ED and family as noted states that she has been very drowsy the past 2 or 3 weeks. She does have hyponatremia , not sure why she is vomiting although flat and upright abdomen does show some obstipation. I suspect she is suffering somewhat from medication effect as well being on Xanax, Neurontin and then also taking trazodone apparently for sleep at night. She is not well enough to go home at this time. She also is a fall risk with her current weakness and drowsiness. We'll admit observation status for further evaluation and treatment of the above problems. Departure - Departure Time of Disposition: 16:00 Disposition: Refer to Observation Condition: Fair Clinical Impression: Vomiting, Hyponatremia Altered mental status Qualifiers: Altered mental status type: somnolence Qualified Code(s): R40.0 - Somnolence - Discharge Information Referrals: Jasmin Carlson, IMAGING TECH [Primary Care Provider] - Forms: ED Department Discharge - My Orders Last 24 Hours: My Active Orders 05/29/19 12:14 Sodium Chloride 0.9% [Saline Flush] 10 ml FLUSH ASDIRECTED PRN Peripheral IV Insertion Adult [OM.PC] Stat 05/29/19 12:15 Peripheral IV Care [RC] . DIRECTED Sodium Chloride 0.9% [Normal Saline] 1,000 ml IV ONETIME 05/29/19 12:30 UA W/MICROSCOPIC [URIN] Stat 05/29/19 14:12 Abdomen 2V AP Flat Upright [CR] Stat 05/29/19 16:05 Admission Status [Patient Status] [ADT] Routine - Assessment/Plan Last 24 Hours: My Active Orders 05/29/19 12:14 Sodium Chloride 0.9% [Saline Flush] 10 ml FLUSH ASDIRECTED PRN Peripheral IV Insertion Adult [OM.PC] Stat 05/29/19 12:15 Peripheral IV Care [RC] . DIRECTED Sodium Chloride 0.9% [Normal Saline] 1,000 ml IV ONETIME 05/29/19 12:30 UA W/MICROSCOPIC [URIN] Stat 05/29/19 14:12 Abdomen 2V AP Flat Upright [CR] Stat 05/29/19 16:05 Admission Status [Patient Status] [ADT] Routine
[2019-05-29] MEDS ORDERED: Ondansetron 4 MG/2 ML SDV IVPUSH ONE (14:11)
[2019-05-29] MEDS ORDERED: Bisacodyl 5 MG Tab PO PRN (18:18)
[2019-05-29] MEDS ORDERED: Polyethylene Glycol 3350 Powder 17 GM Packet PO PRN (18:18)
[2019-05-29] MEDS ORDERED: Docusate Sodium 100 MG Cap PO PRN (18:18)
[2019-05-29] MEDS ORDERED: Albuterol/Ipratropium 3.0-0.5 MG/3 ML Neb Soln NEB PRN (18:18)
[2019-05-29] MEDS ORDERED: Acetaminophen 325 MG Tab PO PRN (18:18)
--- NOTE | 2019-05-29 18:18 | PCM.HP.2 ---
H&P History of Present Illness - General Date of Service: 05/29/19 Admit Problem/Dx: Admission Diagnosis/Problem Admission Diagnosis/Problem Altered mental status Source of Information: Patient, Family, Old Records, Provider, RN Notes Reviewed History Limitations: Reports: Altered Mental Status, Physical Impairment - History of Present Illness Initial Comments - Free Text/Narative: This is an 89 yo elderly white female with past medical hx/o Cataract, HTN, HLD , Constipation, Recurrent UTI/PNA, Spinal Stenosis, Back Pain, DM2 and Depression who presents to ED with complaints of worsening confusion associated with generalized weakness along with nausea and vomiting over the past 2-3 weeks. Her family states that "she wants to sleep all the time". However her GI symptoms started about a couple of days ago after taking her salt tablets for her hyponatremia. Per ED notes, she had a head CT scan which showed no acute abnormal findings. Her ESR also was mild for concerns of muscular inflammation. Per family, she a significant and abrupt change of her current condition from 3 weeks ago. Her initial work up shows a negative UA with normal CRP level. - Related Data Allergies/Adverse Reactions: Allergies Allergy/AdvReac Type Severity Reaction Status Date / Time No Known Allergies Allergy Verified 05/29/19 11:52 Home Medications: Home Meds Aspirin [Екатерина Chewable Aspirin] 81 mg PO DAILY 02/08/14 [History] Gabapentin [Neurontin] 300 mg PO BID 02/08/14 [History] Glimepiride [Amaryl] 1 mg PO BID 02/08/14 [History] [place]-3 Fatty Acids [[place]-3] 1,000 mg PO DAILY 02/08/14 [History] metFORMIN [Glucophage] 750 mg PO BID 02/08/14 [History] Ibuprofen 600 mg PO BID PRN 08/19/15 [History] Losartan [Cozaar] 25 mg PO DAILY 08/19/15 [History] Omeprazole 20 mg PO DAILY 08/19/15 [History] Potassium Chloride [Klor-Con M20] 20 meq PO DAILY 08/19/15 [History] Pravastatin [Pravachol] 10 mg PO MOWEFRSA 08/19/15 [History] hydroCHLOROthiazide [Hydrochlorothiazide] 12.5 mg PO DAILY 08/19/15 [History] traZODone 50 mg PO BEDTIME 08/19/15 [History] Lidocaine/Methyl Malik/Menthol [Lidopro Patch] 1 each TP DAILY PRN 06/25/16 [ History] Mirabegron [Myrbetriq] 50 mg PO BEDTIME 06/25/16 [History] Lactobacillus Acidophilus [Acidophilus Lactobacilli] 1 tab PO DAILY 02/19/18 [ History] Polyethylene Glycol 3350 17 gm PO DAILY 02/19/18 [History] ALPRAZolam [Xanax] 0.5 mg PO BID 09/09/18 [History] Acetaminophen [Tylenol] 650 mg PO TID 09/09/18 [History] Docusate Sodium [Colace] 100 mg PO TID 09/09/18 [History] Loratadine [Claritin] 10 mg PO DAILY 09/09/18 [History] Sertraline [Zoloft] 50 mg PO DAILY 09/09/18 [History] traMADol [Ultram] 50 - 100 mg PO Q6H PRN #20 tab 04/01/19 [Rx] Past Medical History HEENT History: Reports: Cataract Cardiovascular History: Reports: High Cholesterol, Hypertension Respiratory History: Reports: Pneumonia, Recurrent Gastrointestinal History: Reports: Chronic Constipation Genitourinary History: Reports: UTI, Recurrent [employer]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: Musculoskeletal History: Reports: Other (See Below) Other Musculoskeletal History: spinal stenosis Psychiatric History: Reports: Depression Endocrine/Metabolic History: Reports: Diabetes, Type II - Past Surgical History HEENT Surgical History: Reports: Cataract Surgery Social & Family History - Family History Family Medical History: Noncontributory - Tobacco Use Smoking Status *Q: Never Smoker - Caffeine Use Caffeine Use: Reports: None - Recreational Drug Use Recreational Drug Use: No - Living Situation & Occupation Living situation: Reports: , Alone, Assisted Living H&P Review of Systems - Review of Systems: Review Of Systems: See Below Exam - Exam Exam: See Below - Vital Signs Vital Signs: Last Vital Signs Temp 37.1 C 05/29/19 11:53 Pulse 81 05/29/19 11:53 Resp 16 05/29/19 11:53 BP 148/87 H 05/29/19 11:53 Pulse Ox 98 05/29/19 11:53 - Exam General: Cooperative, Mild Distress, Lethargic HEENT: Conjunctiva Clear, EACs Clear, EOMI, Hearing Intact, Mucosa Moist & [place] , Nares Patent, Normal Nasal Septum, Posterior Pharynx Clear, Pupils Equal, Pupils Reactive Neck: Supple, Trachea Midline Lungs: Normal Respiratory Effort, Decreased Breath Sounds Cardiovascular: Regular Rate, Regular Rhythm GI/Abdominal Exam: Normal Bowel Sounds, Soft, Non-Tender, No Organomegaly, No Distention, No Abnormal Bruit, No Mass (Female) Exam: Deferred Rectal (Female) Exam: Deferred Back Exam: Normal Inspection, Decreased Range of Motion Extremities: Normal Inspection, Normal Range of Motion, Non-Tender, No Pedal Edema, Normal Capillary Refill Peripheral Pulses: 2+: Posterior Tibial (L), Posterior Tibial (R), Dorsalis Pedis (L), Dorsalis Pedis (R) Skin: Warm, Dry, Intact Neuro Extensive - Mental Status: Normal Mood/Affect, Memory Intact Neuro Extensive - Motor, Sensory, Reflexes: Abnormal Gait. No: CN II-XII Intact (not appropriate due ) Psychiatric: Other (lethargic) Physical Exam Comments:: lethargic but easily arousable and open eyes with verbal calls - Patient Data Lab Results Last 24 hrs: Laboratory Results - last 24 hr 05/29/19 Range/Units 12:30 Urine Color Yellow (Yellow) Urine Appearance Clear (Clear) Urine pH 7.0 (5.0-8.0) Ur Specific [place] 1.015 (1.005-1.030) Urine Protein Negative (Negative) Urine Glucose (UA) 2+ H (Negative) Urine Ketones Negative (Negative) Urine Occult Blood Negative (Negative) Urine Nitrite Negative (Negative) Urine Bilirubin Negative (Negative) Urine Urobilinogen 0.2 (0.2-1.0) Ur Leukocyte Esterase Negative (Negative) Urine RBC 0-5 (0-5) /hpf Urine WBC Not seen (0-5) /hpf Ur Squamous Epith Cells Not seen (0-5) /hpf Urine Bacteria Not seen (FEW) /hpf Result Diagrams: 05/30/19 04:50 05/30/19 04:50 Problem List Initiated/Reviewed/Updated: Yes Orders Last 24hrs: Active Orders 24 hr Category Date Time Status Admission Status [Patient Status] [ADT] Routine ADT 05/29/19 16:05 Active Peripheral IV Care [RC] . DIRECTED Care 05/29/19 12:15 Active Abdomen 2V AP Flat Upright [CR] Stat Exams 05/29/19 14:12 Taken UA W/MICROSCOPIC [URIN] Stat Lab 05/29/19 12:30 Results Sodium Chloride 0.9% [Normal Saline] 1,000 ml Med 05/29/19 12:15 Active IV ONETIME Sodium Chloride 0.9% [Saline Flush] Med 05/29/19 12:14 Active 10 ml FLUSH ASDIRECTED PRN Peripheral IV Insertion Adult [OM.PC] Stat Oth 05/29/19 12:14 Ordered Medication Orders Sodium Chloride (Normal Saline) 1,000 mls @ 999 mls/hr IV ONETIME SRAVAN Last Admin: 05/29/19 12:29 Dose: 999 mls/hr Sodium Chloride (Saline Flush) 10 ml FLUSH ASDIRECTED PRN PRN Reason: Keep Vein Open Last Admin: 05/29/19 12:27 Dose: 10 ml Assessment/Plan Comment:: Assessment: Acute: AMS - 2/2 Medications Side Effects - Hold Some Medications Constipation - Has chronic constipation - On numerous that could induced constipation - Dietary consult Generalized Weakness - Likely 2/2 poor nutritional intakes - She has been having nausea and vomiting - Poor oral and fluid intake Hyponatremia - 124--> 128 - She is on HCTZ and SSRI: known to cause hyponatremia - Hold HCTZ and continues SSRI Polypharmacy - Multiple medications with sedating and anti-cholinergics/anti-muscarinic effects - Will hold some tonight Chronic: Cataract, HTN, HLD, Constipation, Recurrent UTI/PNA, Spinal Stenosis, Back Pain, DM2 and Depression Plan: Admit to OBS Resume Some Home Meds Routine AM Labs Fall Precautions Regular diet for now; ADA in AM A1C check GI/DVT prophylaxis PT/OT to assess and treat SW/CM for d/c planning Code status: DNR/DNI Additional orders as above - Mortality Measure Prognosis:: Good
[2019-05-29] MEDS ORDERED: Ibuprofen 600 MG Tab PO PRN (18:22)
[2019-05-29] MEDS ORDERED: LIDOCAINE TP PRN (18:22)
[2019-05-29] MEDS ORDERED: MENTHOL TP PRN (18:22)
[2019-05-29] MEDS ORDERED: [UNRECOGNIZED DRUG - OTHER] TP PRN (18:22)
[2019-05-29] MEDS ORDERED: PRAVASTATIN 10 MG PO SCH (18:30)
[2019-05-29] MEDS ORDERED: POLYETHYLENE GLYCOL 17 GM PO SCH (18:30)
[2019-05-29] MEDS ORDERED: SERTRALINE 50 MG PO SCH (21:00)
[2019-05-29] MEDS ORDERED: Acetaminophen 325 MG Tab PO SCH (21:00)
[2019-05-29] MEDS ORDERED: DOCUSATE SODIUM 100 MG PO PRN (22:20)
[2019-05-29] MEDS ORDERED: TYLENOL 650 MG PO SCH (22:30)
[2019-05-29] MEDS: Docusate Sodium 100 MG Cap PO SCH (22:33)
[2019-05-29] MEDS ORDERED: TYLENOL 650 MG PO ONE (22:45)
[2019-05-30] MEDS ORDERED: Omeprazole 20 MG Cap.CR PO SCH (07:00)
[2019-05-30] MEDS ORDERED: Omeprazole 20 MG Cap.CR **OWN MED PO SCH (07:00)
--- NOTE | 2019-05-30 08:29 | CR ---
Abdomen: Supine and upright views of the abdomen were obtained. Comparison: Prior abdominal x-ray of 02/19/18. Scoliosis and degenerative change are seen within the spine. Previous laminectomy is noted within the lumbar spine. Mild increased stool within the colon is seen. Bowel gas pattern is otherwise unremarkable. Surgical clips are seen from prior cholecystectomy. Single surgical clip are seen within the left pelvis. Calcifications are seen within the pelvis which are compatible with phleboliths. Mild degenerative change is seen within the sacroiliac joints. No free air is seen. Vascular calcification is noted. Impression: 1. Slight increased stool within the colon. Other findings as noted above which are stable. 2. Nothing acute is seen. Diagnostic code #2
[2019-05-30 08:43] LABS: VITAMIN D,25-HYDROXY 14.3 ng/ml (30.0-100.0)
[2019-05-30] MEDS ORDERED: Magnesium Sulfate/Water 4 GM in Premix Bag 1 BAG IV ONE (08:58)
--- NOTE | 2019-05-30 08:59 | PCM.PN ---
- General Info Date of Service: 05/30/19 Admission Dx/Problem (Free Text): Admission Diagnosis/Problem Admission Diagnosis/Problem Altered mental status Subjective Update: No significant overnight issues. She ate breakfast this morning. She denies any acute issues. Had a good bowel movement last night per nurse. She seems melancholic and uninterested this morning. Functional Status: Reports: Pain Controlled, Tolerating Diet, Ambulating, Urinating. Denies: New Symptoms - Review of Systems General: Reports: Weakness, Fatigue, Malaise. Denies: Fever, Chills HEENT: Reports: No Symptoms Pulmonary: Denies: Shortness of Breath Cardiovascular: Denies: Chest Pain, Dyspnea on Exertion, Lightheadedness Gastrointestinal: Reports: Decreased Appetite. Denies: Abdominal Pain, Nausea, Vomiting Genitourinary: Reports: No Symptoms Musculoskeletal: Reports: No Symptoms Skin: Reports: No Symptoms Neurological: Reports: Weakness, Gait Disturbance. Denies: Confusion Psychiatric: Denies: Depression, Anxiety, Agitation, Hallucinations Systems Review Comment:: Her Na is 129, Mg is at 1.5 and Vit D level of 14.3 - Patient Data Vitals - Most Recent: Last Vital Signs Temp 36.6 C 05/30/19 03:36 Pulse 79 05/30/19 03:36 Resp 20 05/30/19 03:36 BP 127/71 05/30/19 03:36 Pulse Ox 96 05/30/19 03:36 Weight - Most Recent: 74.797 kg I&O - Last 24 Hours: Intake & Output 05/29/19 05/30/19 05/30/19 22:59 06:59 14:59 Intake Total 500 Output Total 900 Balance -400 Lab Results Last 24 Hours: Laboratory Results - last 24 hr 05/29/19 05/29/19 05/29/19 Range/Units 12:30 20:00 21:14 WBC (3.98-10.04) K/mm3 RBC (3.98-5.22) M/mm3 Hgb (11.2-15.7) gm/dl Hct (34.1-44.9) % MCV (79.4-94.8) fl MCH (25.6-32.2) pg MCHC (32.2-35.5) g/dl RDW Std Deviation (36.4-46.3) fL Plt Count (182-369) K/mm3 MPV (9.4-12.3) fl Neut % (Auto) (34.0-71.1) % Lymph % (Auto) (19.3-51.7) % [place] % (Auto) (4.7-12.5) % Eos % (Auto) (0.7-5.8) Baso % (Auto) (0.1-1.2) % Neut # (Auto) (1.56-6.13) K/mm3 Lymph # (Auto) (1.18-3.74) K/mm3 [place] # (Auto) (0.24-0.36) K/mm3 Eos # (Auto) (0.04-0.36) K/mm3 Baso # (Auto) (0.01-0.08) K/mm3 Manual Slide Review Sodium (136-145) mEq/L Potassium (3.5-5.1) mEq/L Chloride (98-107) mEq/L Carbon Dioxide (21-32) mEq/L Anion Gap (5-15) BUN (7-18) mg/dL Creatinine (0.55-1.02) mg/dL Est Cr Clr Drug Dosing mL/min Estimated GFR (MDRD) (>60) mL/min BUN/Creatinine Ratio (14-18) Glucose (83-115) mg/dL Calcium (8.5-10.1) mg/dL Magnesium (1.8-2.4) mg/dl C-Reactive Protein 0.3 (<1.0) mg/dL Vitamin D 25-Hydroxy (30.0-100.0) ng/ml Urine Color Yellow (Yellow) Urine Appearance Clear (Clear) Urine pH 7.0 (5.0-8.0) Ur Specific [place] 1.015 (1.005-1.030) Urine Protein Negative (Negative) Urine Glucose (UA) 2+ H (Negative) Urine Ketones Negative (Negative) Urine Occult Blood Negative (Negative) Urine Nitrite Negative (Negative) Urine Bilirubin Negative (Negative) Urine Urobilinogen 0.2 (0.2-1.0) Ur Leukocyte Esterase Negative (Negative) Urine RBC 0-5 (0-5) /hpf Urine WBC Not seen (0-5) /hpf Ur Squamous Epith Cells Not seen (0-5) /hpf Urine Bacteria Not seen (FEW) /hpf Urine Mucus Not seen (FEW) /hpf MRSA (PCR) Negative 05/30/19 05/30/19 Range/Units 04:50 04:50 WBC 8.92 (3.98-10.04) K/mm3 RBC 4.33 (3.98-5.22) M/mm3 Hgb 12.8 (11.2-15.7) gm/dl Hct 38.4 (34.1-44.9) % MCV 88.7 (79.4-94.8) fl MCH 29.6 (25.6-32.2) pg MCHC 33.3 (32.2-35.5) g/dl RDW Std Deviation 42.8 (36.4-46.3) fL Plt Count 240 (182-369) K/mm3 MPV 8.5 L (9.4-12.3) fl Neut % (Auto) 61.1 (34.0-71.1) % Lymph % (Auto) 18.0 L (19.3-51.7) % [place] % (Auto) 18.5 H (4.7-12.5) % Eos % (Auto) 0.9 (0.7-5.8) Baso % (Auto) 0.2 (0.1-1.2) % Neut # (Auto) 5.44 (1.56-6.13) K/mm3 Lymph # (Auto) 1.61 (1.18-3.74) K/mm3 [place] # (Auto) 1.65 H (0.24-0.36) K/mm3 Eos # (Auto) 0.08 (0.04-0.36) K/mm3 Baso # (Auto) 0.02 (0.01-0.08) K/mm3 Manual Slide Review Abnormal smear Sodium 129 L (136-145) mEq/L Potassium 3.8 (3.5-5.1) mEq/L Chloride 95 L (98-107) mEq/L Carbon Dioxide 23 (21-32) mEq/L Anion Gap 14.8 (5-15) BUN 9 (7-18) mg/dL Creatinine 0.9 (0.55-1.02) mg/dL Est Cr Clr Drug Dosing 39.67 mL/min Estimated GFR (MDRD) 59 (>60) mL/min BUN/Creatinine Ratio 10.0 L (14-18) Glucose 210 H (83-115) mg/dL Calcium 8.4 L (8.5-10.1) mg/dL Magnesium 1.5 L (1.8-2.4) mg/dl C-Reactive Protein 0.3 (<1.0) mg/dL Vitamin D 25-Hydroxy 14.3 L (30.0-100.0) ng/ml Urine Color (Yellow) Urine Appearance (Clear) Urine pH (5.0-8.0) Ur Specific [place] (1.005-1.030) Urine Protein (Negative) Urine Glucose (UA) (Negative) Urine Ketones (Negative) Urine Occult Blood (Negative) Urine Nitrite (Negative) Urine Bilirubin (Negative) Urine Urobilinogen (0.2-1.0) Ur Leukocyte Esterase (Negative) Urine RBC (0-5) /hpf Urine WBC (0-5) /hpf Ur Squamous Epith Cells (0-5) /hpf Urine Bacteria (FEW) /hpf Urine Mucus (FEW) /hpf MRSA (PCR) Med Orders - Current: Current Medications Acetaminophen (Tylenol) 650 mg PO Q4H PRN PRN Reason: Pain (Mild 1-3)/fever Albuterol/Ipratropium (Duoneb 3.0-0.5 Mg/3 Ml) 3 ml NEB Q4H PRN PRN Reason: Shortness Of Breath/wheezing Aspirin (Halfprin) 81 mg PO DAILY [facility] Bisacodyl (Dulcolax) 5 mg PO DAILY PRN PRN Reason: Constipation Cholecalciferol (Vitamin D3) 5,000 unit PO DAILY [facility] Docusate Sodium (Colace) 100 mg PO TID [facility] Last Admin: 05/29/19 22:33 Dose: 100 mg Docusate Sodium (Colace) 100 mg PO BID PRN PRN Reason: Constipation Fish Oil (Fish Oil) 1 gm PO DAILY [facility] Magnesium Sulfate 4 gm/ Premix 50 mls @ 12.5 mls/hr IV ONETIME ONE Stop: 05/30/19 12:57 Ibuprofen (Motrin) 600 mg PO BID PRN PRN Reason: Pain Loratadine (Claritin) 10 mg PO BEDTIME [facility] Lactobacillus Acidophilus 1 Tab # Patient's Own Med# 1 tab PO DAILY [facility] Lidocaine/Methyl Malik /Menthol Patch 1 Each #Patient's Own Med# 1 each TP DAILY PRN PRN Reason: Pain Losartan 50 Mg Tab # (Patient's Own Med#) 0 each PO DAILY [facility] Pravastatin 10 Mg # (Patient's Own Med#) 10 mg PO MOWEFRSA [facility] Sertraline 50 Mg Tab (#Patient's Own Med#) 50 each PO BEDTIME [facility] Tylenol 650mg Tabs * (Own Med) 1 each PO TID [facility] Omeprazole (Omeprazole) 20 mg PO DAILY@0700 [facility] Last Admin: 05/30/19 06:47 Dose: 20 mg Ondansetron HCl (Zofran) 4 mg IV Q4H PRN PRN Reason: Nausea/Vomiting Polyethylene Glycol (Miralax) 17 gm PO DAILY PRN PRN Reason: Constipation Senna/Docusate Sodium (Senna Plus) 1 tab PO BID PRN PRN Reason: Constipation Sodium Chloride (Saline Flush) 10 ml FLUSH ASDIRECTED PRN PRN Reason: Keep Vein Open Last Admin: 05/29/19 12:27 Dose: 10 ml Discontinued Medications Acetaminophen (Tylenol) 650 mg PO TID [facility] Last Admin: 05/30/19 08:04 Dose: Not Given Docusate Sodium (Colace) 100 mg PO BID PRN PRN Reason: Constipation Sodium Chloride (Normal Saline) 1,000 mls @ 999 mls/hr IV ONETIME [facility] Last Admin: 05/29/19 12:29 Dose: 999 mls/hr Sodium Chloride (Normal Saline) 1,000 mls @ 75 mls/hr IV ASDIRECTED [facility] Stop: 05/30/19 07:49 Last Admin: 05/29/19 22:51 Dose: 75 mls/hr Non-Formulary Medication (Polyethylene Glycol 3350 [Polyethylene Glycol 3350]) 17 gm PO ASDIRECTED [facility] Tylenol 650mg Tabs * (Own Med) 1 each PO ONETIME ONE Stop: 05/29/19 22:46 Last Admin: 05/29/19 22:51 Dose: 1 each Omeprazole (Omeprazole) 20 mg PO DAILY@0700 [facility] Ondansetron HCl (Zofran) 4 mg IVPUSH ONETIME ONE Stop: 05/29/19 14:12 Last Admin: 05/29/19 14:23 Dose: 4 mg - Exam General: Alert, Cooperative, No Acute Distress HEENT: Pupils Equal, Pupils Reactive, EOMI, Mucous Membr. Moist/[place] Neck: Supple Lungs: Normal Respiratory Effort, Decreased Breath Sounds Cardiovascular: Regular Rate, Regular Rhythm GI/Abdominal Exam: Normal Bowel Sounds, Soft, Non-Tender, No Organomegaly, No Distention, No Abnormal Bruit, No Mass (Female) Exam: Deferred Back Exam: Normal Inspection, Decreased Range of Motion Extremities: Normal Inspection, Normal Range of Motion, Non-Tender, No Pedal Edema, Normal Capillary Refill Peripheral Pulses: 2+: Dorsalis Pedis (L), Dorsalis Pedis (R) Skin: Warm, Dry, Intact Neurological: No New Focal Deficit. No: Normal Gait Psy/Mental Status: Alert, Normal Affect, Normal Mood - Problem List Review Problem List Initiated/Reviewed/Updated: Yes - My Orders Last 24 Hours: My Active Orders 05/29/19 18:18 Height and Weight [RC] 04 Oxygen Therapy [RC] PRN Up With Assistance [RC] ASDIRECTED Up ad Bonnie [RC] ASDIRECTED VTE/DVT Education [RC] BID Vital Signs [RC] Q4HR Consult to Case Management/Bacteriologist Medical [CONS] Routine OT Evaluation and Treatment [CONS] Routine PT Evaluation and Treatment [CONS] Routine Acetaminophen [Tylenol] 650 mg PO Q4H PRN Albuterol/Ipratropium [DuoNeb 3.0-0.5 MG/3 ML] 3 ml NEB Q4H PRN Bisacodyl [Dulcolax] 5 mg PO DAILY PRN Docusate Sodium/Sennosides [Senna Plus] 1 tab PO BID PRN Ondansetron [Zofran] 4 mg IV Q4H PRN Polyethylene Glycol 3350 [MiraLAX] 17 gm PO DAILY PRN Resuscitation Status Routine 05/29/19 18:19 Antiembolic Devices [RC] BID Intake and Output [RC] 04,16 Sequential Compression Device [OM.PC] Per Unit Routine 05/29/19 18:20 RT Aerosol Therapy [RC] ASDIRECTED 05/29/19 18:22 Ibuprofen [Motrin] 600 mg PO BID PRN Lidocaine/Methyl [place]/Menthol [Lidopro Patch] 1 each TP DAILY PRN 05/29/19 18:30 Pravastatin 10 mg PO MOWEFRSA 05/29/19 21:00 Docusate Sodium [Colace] 100 mg PO TID Loratadine [Claritin] 10 mg PO BEDTIME Non-Formulary Medication [NF Drug] 50 each PO BEDTIME 05/29/19 22:20 Docusate Sodium [Colace] 100 mg PO BID PRN 05/29/19 22:30 Non-Formulary Medication [NF Drug] 1 each PO TID 05/30/19 03:33 K Pad [Heat Therapy] [OM.PC] Routine 05/30/19 07:00 Omeprazole 20 mg PO DAILY@0700 05/30/19 08:58 Magnesium Sulfate/Water [Magnesium Sulfate in Water Premix] 4 gm Premix Bag 1 bag IV ONETIME 05/30/19 09:00 Aspirin [Halfprin] 81 mg PO DAILY Cholecalciferol (Vitamin D3) [Vitamin D3] 5,000 unit PO DAILY Fish Oil/[place]-3 Fatty Acids [Fish Oil] 1 gm PO DAILY Lactobacillus Acidophilus [Acidophilus Lactobacilli] 1 tab PO DAILY Non-Formulary Medication [NF Drug] 0 each PO DAILY 05/31/19 05:11 BASIC METABOLIC PANEL,BMP [CHEM] AM C-REACTIVE PROTEIN [CHEM] AM CBC WITH AUTO DIFF [HEME] AM MAGNESIUM [CHEM] AM 06/01/19 05:11 BASIC METABOLIC PANEL,BMP [CHEM] AM C-REACTIVE PROTEIN [CHEM] AM CBC WITH AUTO DIFF [HEME] AM MAGNESIUM [CHEM] AM 06/02/19 05:11 BASIC METABOLIC PANEL,BMP [CHEM] AM CBC WITH AUTO DIFF [HEME] AM MAGNESIUM [CHEM] AM 06/03/19 05:11 BASIC METABOLIC PANEL,BMP [CHEM] AM CBC WITH AUTO DIFF [HEME] AM MAGNESIUM [CHEM] AM - Plan Plan:: Assessment: Acute: AMS, Improved - 2/2 Medications Side Effects - She is more alert and awake, able to engage - Hold Some Medications S/p Constipation - Has chronic constipation - On numerous that could induced constipation - Dietary consult Generalized Weakness - Likely 2/2 poor nutritional intakes - She has been having nausea and vomiting - Poor oral and fluid intake Hyponatremia - 124--> 128--> 129 - She is on HCTZ and SSRI: known to cause hyponatremia - Hold HCTZ and continues SSRI Vit D Deficiency - Vit D level of 14.3 (low) - Oral supplement 1 tab daily Polypharmacy - Multiple medications with sedating and anti-cholinergics/anti-muscarinic effects - Will hold some tonight Chronic: Cataract, HTN, HLD, Constipation, Recurrent UTI/PNA, Spinal Stenosis, Back Pain, DM2 and Depression Plan: She appears clinically better this morning Routine AM Labs Fall Precautions A1C check-pending GI/DVT prophylaxis [employer]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
[2019-05-30] MEDS ORDERED: LACTOBACILLUS ACIDOPHILUS PO SCH (09:00)
[2019-05-30] MEDS ORDERED: LOSARTAN 50 MG PO SCH (09:00)
[2019-05-30] MEDS: Cholecalciferol (Vitamin D3) 5,000 UNIT Tab PO SCH (10:12)
[2019-05-30] MEDS: Aspirin 81 MG Tab.EC PO SCH (10:13)
[2019-05-30] MEDS: Fish Oil/Omega-3 Fatty Acids 1 Gm Cap PO SCH (10:13)
[2019-05-30] MEDS: Docusate Sodium 100 MG Cap PO SCH ×3 (10:13→22:27)
[2019-05-30] MEDS ORDERED: Docusate Sodium 100 MG Cap PO PRN (13:27)
[2019-05-30] MEDS ORDERED: Pantoprazole 40 MG Tab.CR PO SCH (13:34)
[2019-05-30] MEDS ORDERED: Sertraline 50 MG Tab PO SCH (13:35)
[2019-05-30] MEDS ORDERED: Simvastatin 10 MG Tab PO SCH (13:39)
[2019-05-30] MEDS ORDERED: Saccharomyces Boulardii (Probiotic) 250 MG Cap PO SCH (13:52)
[2019-05-30] MEDS: Acetaminophen 325 MG Tab PO SCH ×2 (15:16→22:26)
[2019-05-30] MEDS ORDERED: Insulin Lispro 100 Units/ML 3 ML Vial SUBCUT PRN (20:12)
[2019-05-30] MEDS ORDERED: Mirabegron [Myrbetriq] 50 MG PO SCH (21:00)
[2019-05-30] MEDS: Loratadine 10 MG Tab PO SCH ×2 (21:36→22:27)
[2019-05-30] MEDS: Glimepiride 2 MG Tab PO SCH (22:25)
[2019-05-30] MEDS ORDERED: Sertraline 25 MG Tab PO ONE (23:00)
[2019-05-30] MEDS ORDERED: Sertraline 50 MG Tab PO ONE (23:00)
[2019-05-31] MEDS: Glimepiride 2 MG Tab PO SCH (06:47)
[2019-05-31] MEDS: Insulin Lispro 100 Units/ML 3 ML Vial SUBCUT SCH ×4 (08:47→21:54)
[2019-05-31] MEDS: Aspirin 81 MG Tab.EC PO SCH (08:48)
[2019-05-31] MEDS: Fish Oil/Omega-3 Fatty Acids 1 Gm Cap PO SCH (08:48)
[2019-05-31] MEDS: Cholecalciferol (Vitamin D3) 5,000 UNIT Tab PO SCH (08:48)
[2019-05-31] MEDS: Acetaminophen 325 MG Tab PO SCH ×3 (08:49→20:18)
[2019-05-31] MEDS: Saccharomyces Boulardii (Probiotic) 250 MG Cap PO SCH (08:49)
[2019-05-31] MEDS: Pantoprazole 40 MG Tab.CR PO SCH (08:49)
--- NOTE | 2019-05-31 09:25 | CT ---
Head CT Technique: Multiple axial sections through the brain were obtained. Intravenous contrast was not utilized. Comparison: Previous head CT study of 05/26/19. Findings: Ventricles along with basal cisterns and sulci over the convexities are moderately prominent. Mild diminished density is noted within the periventricular white matter which is most likely due to small vessel ischemic demyelination change. No other abnormal parenchymal densities are seen. No evidence of intracranial hemorrhage. No midline shift or mass effect is seen. Bone window settings were reviewed which show no acute calvarial abnormality. Visualized mastoid sinuses and paranasal sinuses show nothing acute. Mild atherosclerotic calcification is seen within the carotid siphon. Impression: 1. Nothing acute is appreciated on noncontrast head CT study. Stable senescent change is noted. 2. No change from previous head CT is seen. Diagnostic code #2
--- NOTE | 2019-05-31 10:21 | PCM.PN ---
- General Info Date of Service: 05/31/19 Admission Dx/Problem (Free Text): Admission Diagnosis/Problem Admission Diagnosis/Problem Altered mental status Subjective Update: Was confused and agitated last night. She is still confused this morning. However is able to have her PT/OT session this morning. She has no acute complaints. Functional Status: Reports: Pain Controlled, Tolerating Diet, Ambulating, Urinating. Denies: New Symptoms - Review of Systems General: Denies: Fever, Chills HEENT: Reports: No Symptoms Pulmonary: Denies: Shortness of Breath Cardiovascular: Denies: Chest Pain, Dyspnea on Exertion, Lightheadedness Gastrointestinal: Denies: Abdominal Pain, Nausea Genitourinary: Reports: No Symptoms Musculoskeletal: Reports: No Symptoms Skin: Denies: Cyanosis, Pallor, Diaphoresis, Bruising, Other Neurological: Reports: Gait Disturbance. Denies: Confusion, Difficulty Walking , Weakness Psychiatric: Reports: Confusion (baseline confusion). Denies: Depression, Mood Lability, Anxiety, Agitation, Hallucinations Systems Review Comment:: She had sundowning episode overnight. She confused and slept and off. She has no acute issues. She was ambulating with a wheel walker this morning. - Patient Data Vitals - Most Recent: Last Vital Signs Temp 36.5 C 05/31/19 07:46 Pulse 80 05/31/19 07:46 Resp 22 H 05/31/19 07:46 BP 130/67 05/31/19 07:46 Pulse Ox 95 05/31/19 07:46 Weight - Most Recent: 71.668 kg I&O - Last 24 Hours: Intake & Output 05/30/19 05/31/19 05/31/19 22:59 06:59 14:59 Intake Total 1560 780 Output Total 1200 200 Balance 360 580 Lab Results Last 24 Hours: Laboratory Results - last 24 hr 05/30/19 05/30/19 05/30/19 Range/Units 06:59 17:12 22:24 WBC (3.98-10.04) K/mm3 RBC (3.98-5.22) M/mm3 Hgb (11.2-15.7) gm/dl Hct (34.1-44.9) % MCV (79.4-94.8) fl MCH (25.6-32.2) pg MCHC (32.2-35.5) g/dl RDW Std Deviation (36.4-46.3) fL Plt Count (182-369) K/mm3 MPV (9.4-12.3) fl Neut % (Auto) (34.0-71.1) % Lymph % (Auto) (19.3-51.7) % [place] % (Auto) (4.7-12.5) % Eos % (Auto) (0.7-5.8) Baso % (Auto) (0.1-1.2) % Neut # (Auto) (1.56-6.13) K/mm3 Lymph # (Auto) (1.18-3.74) K/mm3 [place] # (Auto) (0.24-0.36) K/mm3 Eos # (Auto) (0.04-0.36) K/mm3 Baso # (Auto) (0.01-0.08) K/mm3 POC Glucose 214 H 262 H 266 H (83-110) mg/dL 05/31/19 05/31/19 Range/Units 06:29 09:42 WBC 10.66 H (3.98-10.04) K/mm3 RBC 4.46 (3.98-5.22) M/mm3 Hgb 13.1 (11.2-15.7) gm/dl Hct 39.3 (34.1-44.9) % MCV 88.1 (79.4-94.8) fl MCH 29.4 (25.6-32.2) pg MCHC 33.3 (32.2-35.5) g/dl RDW Std Deviation 42.9 (36.4-46.3) fL Plt Count 247 (182-369) K/mm3 MPV 8.8 L (9.4-12.3) fl Neut % (Auto) 77.8 H (34.0-71.1) % Lymph % (Auto) 8.9 L (19.3-51.7) % [place] % (Auto) 12.3 (4.7-12.5) % Eos % (Auto) 0 L (0.7-5.8) Baso % (Auto) 0.2 (0.1-1.2) % Neut # (Auto) 8.30 H (1.56-6.13) K/mm3 Lymph # (Auto) 0.95 L (1.18-3.74) K/mm3 [place] # (Auto) 1.31 H (0.24-0.36) K/mm3 Eos # (Auto) 0.00 L (0.04-0.36) K/mm3 Baso # (Auto) 0.02 (0.01-0.08) K/mm3 POC Glucose 221 H (83-110) mg/dL Med Orders - Current: Current Medications Acetaminophen (Tylenol) 650 mg PO Q4H PRN PRN Reason: Pain (Mild 1-3)/fever Acetaminophen (Tylenol) 650 mg PO TID [facility] Last Admin: 05/31/19 08:49 Dose: 650 mg Albuterol/Ipratropium (Duoneb 3.0-0.5 Mg/3 Ml) 3 ml NEB Q4H PRN PRN Reason: Shortness Of Breath/wheezing Aspirin (Halfprin) 81 mg PO DAILY [facility] Last Admin: 05/31/19 08:48 Dose: 81 mg Bisacodyl (Dulcolax) 5 mg PO DAILY PRN PRN Reason: Constipation Cholecalciferol (Vitamin D3) 5,000 unit PO DAILY [facility] Last Admin: 05/31/19 08:48 Dose: 5,000 unit Docusate Sodium (Colace) 100 mg PO TID [facility] Last Admin: 05/30/19 22:27 Dose: 100 mg Docusate Sodium (Colace) 100 mg PO BID PRN PRN Reason: Constipation Last Admin: 05/31/19 08:48 Dose: 100 mg Fish Oil (Fish Oil) 1 gm PO DAILY [facility] Last Admin: 05/31/19 08:48 Dose: 1 gm Glimepiride (Amaryl) 2 mg PO BIDMEALS [facility] Ibuprofen (Motrin) 600 mg PO BID PRN PRN Reason: Pain Insulin Human Lispro (Humalog) 0 unit SUBCUT QIDACANDBED [facility]; Protocol Last Admin: 05/31/19 08:47 Dose: 4 units Loratadine (Claritin) 10 mg PO BEDTIME [facility] Last Admin: 05/30/19 22:27 Dose: 10 mg Losartan Potassium (Cozaar) 25 mg PO DAILY [facility] Ondansetron HCl (Zofran) 4 mg IV Q4H PRN PRN Reason: Nausea/Vomiting Pantoprazole Sodium (Protonix) 40 mg PO DAILY@0700 [facility] Last Admin: 05/31/19 08:49 Dose: 40 mg Mirabegron [ (Myrbetriq] 50 Mg) 0 each PO BEDTIME [facility] Last Admin: 05/31/19 07:42 Dose: Not Given Polyethylene Glycol (Miralax) 17 gm PO DAILY PRN PRN Reason: Constipation Saccharomyces Boulardii (Florastor) 250 mg PO DAILY [facility] Last Admin: 05/31/19 08:49 Dose: 250 mg Senna/Docusate Sodium (Senna Plus) 1 tab PO BID PRN PRN Reason: Constipation Sertraline HCl (Zoloft) 50 mg PO BEDTIME [facility] Simvastatin (Zocor) 5 mg PO MOWEFRSA [facility] Sodium Chloride (Saline Flush) 10 ml FLUSH ASDIRECTED PRN PRN Reason: Keep Vein Open Last Admin: 05/29/19 12:27 Dose: 10 ml Discontinued Medications Acetaminophen (Tylenol) 650 mg PO TID [facility] Last Admin: 05/30/19 08:04 Dose: Not Given Docusate Sodium (Colace) 100 mg PO BID PRN PRN Reason: Constipation Docusate Sodium (Colace) 100 mg PO BID PRN PRN Reason: Constipation Glimepiride (Amaryl) 1 mg PO BIDMEALS [facility] Last Admin: 05/31/19 06:47 Dose: 1 mg Sodium Chloride (Normal Saline) 1,000 mls @ 999 mls/hr IV ONETIME [facility] Last Admin: 05/29/19 12:29 Dose: 999 mls/hr Sodium Chloride (Normal Saline) 1,000 mls @ 75 mls/hr IV ASDIRECTED [facility] Stop: 05/30/19 07:49 Last Admin: 05/29/19 22:51 Dose: 75 mls/hr Magnesium Sulfate 4 gm/ Premix 50 mls @ 12.5 mls/hr IV ONETIME ONE Stop: 05/30/19 12:57 Last Admin: 05/30/19 10:14 Dose: 12.5 mls/hr Insulin Human Lispro (Humalog) 0 unit SUBCUT QIDACANDBED PRN; Protocol PRN Reason: Hyperglycemia Last Admin: 05/30/19 22:24 Dose: 6 units Lactobacillus Acidophilus 1 Tab # Patient's Own Med# 1 tab PO DAILY [facility] Last Admin: 05/30/19 10:13 Dose: 1 tab Lidocaine/Methyl [place] /Menthol Patch 1 Each #Patient's Own Med# 1 each TP DAILY PRN PRN Reason: Pain Losartan 50 Mg Tab # (Patient's Own Med#) 0 each PO DAILY [facility] Last Admin: 05/30/19 10:15 Dose: 0.5 each Non-Formulary Medication (Polyethylene Glycol 3350 [Polyethylene Glycol 3350]) 17 gm PO ASDIRECTED [facility] Pravastatin 10 Mg # (Patient's Own Med#) 10 mg PO MOWEFRSA [facility] Last Admin: 05/30/19 11:46 Dose: Not Given Sertraline 50 Mg Tab (#Patient's Own Med#) 50 each PO BEDTIME [facility] Last Admin: 05/30/19 21:36 Dose: Not Given Tylenol 650mg Tabs * (Own Med) 1 each PO TID [facility] Last Admin: 05/30/19 10:13 Dose: 1 each Tylenol 650mg Tabs * (Own Med) 1 each PO ONETIME ONE Stop: 05/29/19 22:46 Last Admin: 05/29/19 22:51 Dose: 1 each Omeprazole (Omeprazole) 20 mg PO DAILY@0700 [facility] Omeprazole (Omeprazole) 20 mg PO DAILY@0700 [facility] Last Admin: 05/30/19 06:47 Dose: 20 mg Ondansetron HCl (Zofran) 4 mg IVPUSH ONETIME ONE Stop: 05/29/19 14:12 Last Admin: 05/29/19 14:23 Dose: 4 mg Pantoprazole Sodium (Protonix) 40 mg PO DAILY@0700 [facility] Saccharomyces Boulardii (Florastor) 250 mg PO DAILY [facility] Sertraline HCl (Zoloft) 50 mg PO BEDTIME [facility] Last Admin: 05/31/19 05:07 Dose: Not Given Sertraline HCl (Zoloft) 50 mg PO ONETIME ONE Stop: 05/30/19 23:01 Sertraline HCl (Zoloft) 50 mg PO ONETIME ONE Stop: 05/30/19 23:01 Last Admin: 05/30/19 22:55 Dose: 50 mg - Exam General: Alert, Cooperative, No Acute Distress HEENT: Pupils Equal, Pupils Reactive, Mucous Membr. Moist/[place] Neck: Supple Lungs: Normal Respiratory Effort, Decreased Breath Sounds Cardiovascular: Regular Rate, Regular Rhythm GI/Abdominal Exam: Normal Bowel Sounds, Soft, Non-Tender, No Organomegaly, No Distention, No Abnormal Bruit (Female) Exam: Deferred Back Exam: Normal Inspection, Decreased Range of Motion Extremities: Normal Inspection, Normal Range of Motion, Non-Tender, No Pedal Edema, Normal Capillary Refill Peripheral Pulses: 2+: Dorsalis Pedis (L), Dorsalis Pedis (R) Skin: Warm, Dry, Intact Neurological: No New Focal Deficit Psy/Mental Status: Alert, Normal Affect, Normal Mood, Other (unmotivated) - Problem List Review Problem List Initiated/Reviewed/Updated: Yes - My Orders Last 24 Hours: My Active Orders 05/30/19 13:27 Docusate Sodium [Colace] 100 mg PO BID PRN 05/30/19 13:35 Losartan [Cozaar] 25 mg PO DAILY 05/30/19 13:39 Simvastatin [Zocor] 5 mg PO MOWEFRSA 05/30/19 14:11 Admission Status [Patient Status] [ADT] Routine 05/30/19 14:18 Saccharomyces Boulardii [Florastor] 250 mg PO DAILY 05/30/19 15:00 Acetaminophen [Tylenol] 650 mg PO TID 05/30/19 15:55 Consult to Speech Language Pathology [[employer] Evaluation and Treatment] [CONS] Routine 05/30/19 15:57 Consult to Speech Language Pathology [TRUSS [employer]ER Evaluation and Treatment] [CONS] Routine 05/30/19 20:12 Blood Glucose Check, Bedside [RC] QIDACANDBED 05/30/19 21:00 Patient's Own Medication [Ptom] 0 each PO BEDTIME 05/31/19 06:43 Pantoprazole [ProTONIX] 40 mg PO DAILY@0700 05/31/19 08:45 Insulin Lispro [HumaLOG] See Protocol SUBCUT QIDACANDBED 05/31/19 09:42 A1C [GLYCOSYLATED HEMOGLOBIN,HGBA1C] [CHEM] AM BASIC METABOLIC PANEL,BMP [CHEM] AM C-REACTIVE PROTEIN [CHEM] AM CBC WITH AUTO DIFF [HEME] AM MAGNESIUM [CHEM] AM 05/31/19 17:00 Glimepiride [Amaryl] 2 mg PO BIDMEALS 05/31/19 21:00 Sertraline [Zoloft] 50 mg PO BEDTIME 06/01/19 05:11 BASIC METABOLIC PANEL,BMP [CHEM] AM C-REACTIVE PROTEIN [CHEM] AM CBC WITH AUTO DIFF [HEME] AM MAGNESIUM [CHEM] AM 06/02/19 05:11 BASIC METABOLIC PANEL,BMP [CHEM] AM CBC WITH AUTO DIFF [HEME] AM MAGNESIUM [CHEM] AM 06/03/19 05:11 BASIC METABOLIC PANEL,BMP [CHEM] AM CBC WITH AUTO DIFF [HEME] AM MAGNESIUM [CHEM] AM - Plan Plan:: Assessment: Acute: AMS with Overnight Sundowning - This maybe her new baseline - 2/2 Medications Side Effects - She is more alert and awake, able to engage - Hold Some Medications: off xanax, gabapentin, tramadol and trazodone - Cognitive evaluation: Moderate-Severe Memory Impairment (Vascular Dementia) S/p Constipation - Has chronic constipation - On numerous that could induced constipation - Dietary consult Generalized Weakness, Improved - Likely 2/2 poor nutritional intakes - She has no more GI issues - Oral intake has improved Hyponatremia - 124--> 128--> 129-->125 - She is on HCTZ and SSRI: known to cause hyponatremia - Hold HCTZ and continue SSRI - Thermotabs 1 tab po TID Vit D Deficiency - Vit D level of 14.3 (low) - Oral supplement 1 tab daily Hyperglycemia - Permissive due to recent poor oral intake - BS in the 200-300s - Glimepiride 3 mg po BID - Accu-check QID w/ ISS high dose now - A1C is 7.10 -well controlled overall Polypharmacy - Multiple medications with sedating and anti-cholinergics/anti-muscarinic effects - Will hold some tonight Chronic: Cataract, HTN, HLD, Constipation, Recurrent UTI/PNA, Spinal Stenosis, Back Pain, DM2 and Depression Plan: She remains clinically stable Routine AM Labs Fall Precautions A1C check-7.10 GI/DVT Prophylaxis Sundowning Prevention PT/OT to assess and treat Recommend SNF/NH SW/CM for d/c planning Code status: DNR/DNI Additional orders as above LOS anticipate > 96hrs pending [place] SNF/placement Discussed cognitive eval results with family. Advised family to have her re- evaluated at SNF/Rehab. Offered low dose Aricept to help with insomnia and sundowning after going over risks and benefits-family agreed.
[2019-05-31 11:22] LABS: HEMOGLOBIN A1C 7.1 % (4.50-6.20)
[2019-05-31] MEDS: Docusate Sodium 100 MG Cap PO SCH ×3 (11:28→20:18)
[2019-05-31] MEDS ORDERED: Losartan 25 MG Tab PO ONE (11:45)
[2019-05-31] MEDS: Losartan 25 MG Tab PO SCH (11:49)
[2019-05-31] MEDS: Sodium Chloride/Potassium Chloride Tab PO SCH ×2 (15:04→20:18)
[2019-05-31] MEDS ORDERED: Glimepiride 2 MG Tab PO SCH (17:00)
[2019-05-31] MEDS: Donepezil 10 MG Tab PO SCH (20:18)
[2019-05-31] MEDS: Loratadine 10 MG Tab PO SCH (20:18)
[2019-05-31] MEDS: Mirabegron [Myrbetriq] 50 MG PO SCH (20:24)
[2019-05-31] MEDS: Sertraline 50 MG Tab PO SCH (20:24)
[2019-05-31] MEDS: Simvastatin 10 MG Tab PO SCH (20:25)
[2019-05-31] MEDS: Ondansetron 4 MG/2 ML SDV IV PRN (23:48)
[2019-06-01] MEDS ORDERED: Metoprolol Tartrate 5 MG/5 ML SDV IVPUSH PRN (02:01)
[2019-06-01] MEDS ORDERED: HYDROmorphone 0.5 MG/0.5 ML Syringe IVPUSH PRN (03:09)
[2019-06-01] MEDS ORDERED: Scopolamine 1.5 MG Transdermal Patch TRDERM ONE (03:12)
[2019-06-01] MEDS ORDERED: Diltiazem 50 MG/10 ML SDV IVPUSH ONE (03:12)
[2019-06-01] MEDS: Ondansetron 4 MG/2 ML SDV IV PRN (04:39)
[2019-06-01] MEDS: Pantoprazole 40 MG Tab.CR PO SCH (06:03)
[2019-06-01] MEDS: Glimepiride 2 MG Tab PO SCH ×2 (06:03→21:39)
[2019-06-01] MEDS ORDERED: Heparin Sodium 5,000 Units/ML Vial IVPUSH ONE ×2 (07:23→23:36)
--- NOTE | 2019-06-01 07:23 | PCM.PN ---
- General Info Date of Service: 06/01/19 Admission Dx/Problem (Free Text): Admission Diagnosis/Problem Admission Diagnosis/Problem Altered mental status Subjective Update: Had a rough night and she was retching overnight. Also went into afib with HR as high as 130s. However she converted back to sinu rhythm after treatment of small dose of Cardizem IVP. However she is fully alert and wake this morning. Her K and Mg were mildly low. Her troponin were also positive but she is now on Heparin drip for NSTEMI. Functional Status: Reports: Pain Controlled, Tolerating Diet, Ambulating, Urinating, New Symptoms (tired) - Review of Systems General: Reports: Malaise. Denies: Fever, Weakness, Chills HEENT: Denies: No Symptoms Pulmonary: Denies: Shortness of Breath Cardiovascular: Denies: Chest Pain, Dyspnea on Exertion, Lightheadedness Gastrointestinal: Denies: Abdominal Pain, Diarrhea, Vomiting Genitourinary: Reports: No Symptoms Musculoskeletal: Reports: No Symptoms Skin: Denies: Cyanosis, Diaphoresis, Bruising, Other Neurological: Denies: Difficulty Walking, Weakness, Gait Disturbance Psychiatric: Reports: Confusion (baseline confusion). Denies: Depression, Anxiety, Agitation, Hallucinations, Suicidal Ideation - Patient Data Vitals - Most Recent: Last Vital Signs Temp 36.6 C 06/01/19 04:46 Pulse 95 06/01/19 04:46 Resp 06/01/19 04:46 BP 134/81 06/01/19 04:46 Pulse Ox 97 06/01/19 04:46 Weight - Most Recent: 70.987 kg I&O - Last 24 Hours: Intake & Output 05/31/19 06/01/19 06/01/19 22:59 06:59 14:59 Intake Total 1400 300 Output Total 450 50 Balance 950 250 Lab Results Last 24 Hours: Laboratory Results - last 24 hr 05/31/19 05/31/19 05/31/19 Range/Units 09:42 09:42 09:42 WBC 10.66 H (3.98-10.04) K/mm3 RBC 4.46 (3.98-5.22) M/mm3 Hgb 13.1 (11.2-15.7) gm/dl Hct 39.3 (34.1-44.9) % MCV 88.1 (79.4-94.8) fl MCH 29.4 (25.6-32.2) pg MCHC 33.3 (32.2-35.5) g/dl RDW Std Deviation 42.9 (36.4-46.3) fL Plt Count 247 (182-369) K/mm3 MPV 8.8 L (9.4-12.3) fl Neut % (Auto) 77.8 H (34.0-71.1) % Lymph % (Auto) 8.9 L (19.3-51.7) % [place] % (Auto) 12.3 (4.7-12.5) % Eos % (Auto) 0 L (0.7-5.8) Baso % (Auto) 0.2 (0.1-1.2) % Neut # (Auto) 8.30 H (1.56-6.13) K/mm3 Lymph # (Auto) 0.95 L (1.18-3.74) K/mm3 [place] # (Auto) 1.31 H (0.24-0.36) K/mm3 Eos # (Auto) 0.00 L (0.04-0.36) K/mm3 Baso # (Auto) 0.02 (0.01-0.08) K/mm3 Manual Slide Review Normal smear Sodium 125 L (136-145) mEq/L Potassium 3.9 (3.5-5.1) mEq/L Chloride 91 L (98-107) mEq/L Carbon Dioxide 22 (21-32) mEq/L Anion Gap 15.9 H (5-15) BUN 12 (7-18) mg/dL Creatinine 1.1 H (0.55-1.02) mg/dL Est Cr Clr Drug Dosing 32.63 mL/min Estimated GFR (MDRD) 47 (>60) mL/min BUN/Creatinine Ratio 10.9 L (14-18) Glucose 376 H (83-115) mg/dL POC Glucose (83-110) mg/dL Hemoglobin A1c 7.10 H (4.50-6.20) % Calcium 8.4 L (8.5-10.1) mg/dL Magnesium 1.8 (1.8-2.4) mg/dl Troponin I (0.00-0.056) ng/mL C-Reactive Protein 0.8 (<1.0) mg/dL Triglycerides (<150) mg/dL Cholesterol (<200) mg/dL LDL Cholesterol Direct (<100) mg/dL HDL Cholesterol (40-59) mg/dL 05/31/19 05/31/19 05/31/19 Range/Units 11:08 17:17 21:47 WBC (3.98-10.04) K/mm3 RBC (3.98-5.22) M/mm3 Hgb (11.2-15.7) gm/dl Hct (34.1-44.9) % MCV (79.4-94.8) fl MCH (25.6-32.2) pg MCHC (32.2-35.5) g/dl RDW Std Deviation (36.4-46.3) fL Plt Count (182-369) K/mm3 MPV (9.4-12.3) fl Neut % (Auto) (34.0-71.1) % Lymph % (Auto) (19.3-51.7) % [place] % (Auto) (4.7-12.5) % Eos % (Auto) (0.7-5.8) Baso % (Auto) (0.1-1.2) % Neut # (Auto) (1.56-6.13) K/mm3 Lymph # (Auto) (1.18-3.74) K/mm3 [place] # (Auto) (0.24-0.36) K/mm3 Eos # (Auto) (0.04-0.36) K/mm3 Baso # (Auto) (0.01-0.08) K/mm3 Manual Slide Review Sodium (136-145) mEq/L Potassium (3.5-5.1) mEq/L Chloride (98-107) mEq/L Carbon Dioxide (21-32) mEq/L Anion Gap (5-15) BUN (7-18) mg/dL Creatinine (0.55-1.02) mg/dL Est Cr Clr Drug Dosing mL/min Estimated GFR (MDRD) (>60) mL/min BUN/Creatinine Ratio (14-18) Glucose (83-115) mg/dL POC Glucose 239 H 303 H 246 H (83-110) mg/dL Hemoglobin A1c (4.50-6.20) % Calcium (8.5-10.1) mg/dL Magnesium (1.8-2.4) mg/dl Troponin I (0.00-0.056) ng/mL C-Reactive Protein (<1.0) mg/dL Triglycerides (<150) mg/dL Cholesterol (<200) mg/dL LDL Cholesterol Direct (<100) mg/dL HDL Cholesterol (40-59) mg/dL 06/01/19 06/01/19 06/01/19 Range/Units 02:15 02:15 02:15 WBC 11.89 H (3.98-10.04) K/mm3 RBC 4.55 (3.98-5.22) M/mm3 Hgb 13.4 (11.2-15.7) gm/dl Hct 39.4 (34.1-44.9) % MCV 86.6 (79.4-94.8) fl MCH 29.5 (25.6-32.2) pg MCHC 34.0 (32.2-35.5) g/dl RDW Std Deviation 42.5 (36.4-46.3) fL Plt Count 252 (182-369) K/mm3 MPV 8.9 L (9.4-12.3) fl Neut % (Auto) 67.2 (34.0-71.1) % Lymph % (Auto) 12.5 L (19.3-51.7) % [place] % (Auto) 19.2 H (4.7-12.5) % Eos % (Auto) 0 L (0.7-5.8) Baso % (Auto) 0.2 (0.1-1.2) % Neut # (Auto) 7.99 H (1.56-6.13) K/mm3 Lymph # (Auto) 1.49 (1.18-3.74) K/mm3 [place] # (Auto) 2.28 H (0.24-0.36) K/mm3 Eos # (Auto) 0.00 L (0.04-0.36) K/mm3 Baso # (Auto) 0.02 (0.01-0.08) K/mm3 Manual Slide Review Abnormal smear Sodium 126 L (136-145) mEq/L Potassium 3.1 L (3.5-5.1) mEq/L Chloride 93 L (98-107) mEq/L Carbon Dioxide 22 (21-32) mEq/L Anion Gap 14.1 (5-15) BUN 13 (7-18) mg/dL Creatinine 0.8 (0.55-1.02) mg/dL Est Cr Clr Drug Dosing 44.87 mL/min Estimated GFR (MDRD) > 60 (>60) mL/min BUN/Creatinine Ratio 16.3 (14-18) Glucose 208 H (83-115) mg/dL POC Glucose (83-110) mg/dL Hemoglobin A1c (4.50-6.20) % Calcium 8.9 (8.5-10.1) mg/dL Magnesium 1.6 L (1.8-2.4) mg/dl Troponin I 0.202 H* (0.00-0.056) ng/mL C-Reactive Protein 0.9 (<1.0) mg/dL Triglycerides (<150) mg/dL Cholesterol (<200) mg/dL LDL Cholesterol Direct (<100) mg/dL HDL Cholesterol (40-59) mg/dL 06/01/19 06/01/19 Range/Units 05:10 05:37 WBC (3.98-10.04) K/mm3 RBC (3.98-5.22) M/mm3 Hgb (11.2-15.7) gm/dl Hct (34.1-44.9) % MCV (79.4-94.8) fl MCH (25.6-32.2) pg MCHC (32.2-35.5) g/dl RDW Std Deviation (36.4-46.3) fL Plt Count (182-369) K/mm3 MPV (9.4-12.3) fl Neut % (Auto) (34.0-71.1) % Lymph % (Auto) (19.3-51.7) % [place] % (Auto) (4.7-12.5) % Eos % (Auto) (0.7-5.8) Baso % (Auto) (0.1-1.2) % Neut # (Auto) (1.56-6.13) K/mm3 Lymph # (Auto) (1.18-3.74) K/mm3 [place] # (Auto) (0.24-0.36) K/mm3 Eos # (Auto) (0.04-0.36) K/mm3 Baso # (Auto) (0.01-0.08) K/mm3 Manual Slide Review Sodium (136-145) mEq/L Potassium (3.5-5.1) mEq/L Chloride (98-107) mEq/L Carbon Dioxide (21-32) mEq/L Anion Gap (5-15) BUN (7-18) mg/dL Creatinine (0.55-1.02) mg/dL Est Cr Clr Drug Dosing mL/min Estimated GFR (MDRD) (>60) mL/min BUN/Creatinine Ratio (14-18) Glucose (83-115) mg/dL POC Glucose 270 H (83-110) mg/dL Hemoglobin A1c (4.50-6.20) % Calcium (8.5-10.1) mg/dL Magnesium (1.8-2.4) mg/dl Troponin I 0.165 H* (0.00-0.056) ng/mL C-Reactive Protein (<1.0) mg/dL Triglycerides 69 (<150) mg/dL Cholesterol 150 (<200) mg/dL LDL Cholesterol Direct 67 (<100) mg/dL HDL Cholesterol 77.0 H (40-59) mg/dL Med Orders - Current: Current Medications Acetaminophen (Tylenol) 650 mg PO Q4H PRN PRN Reason: Pain (Mild 1-3)/fever Acetaminophen (Tylenol) 650 mg PO TID [facility] Last Admin: 05/31/19 20:18 Dose: 650 mg Albuterol/Ipratropium (Duoneb 3.0-0.5 Mg/3 Ml) 3 ml NEB Q4H PRN PRN Reason: Shortness Of Breath/wheezing Aspirin (Halfprin) 81 mg PO DAILY [facility] Last Admin: 05/31/19 08:48 Dose: 81 mg Bisacodyl (Dulcolax) 5 mg PO DAILY PRN PRN Reason: Constipation Cholecalciferol (Vitamin D3) 5,000 unit PO DAILY [facility] Last Admin: 05/31/19 08:48 Dose: 5,000 unit Docusate Sodium (Colace) 100 mg PO TID [facility] Last Admin: 05/31/19 20:18 Dose: 100 mg Docusate Sodium (Colace) 100 mg PO BID PRN PRN Reason: Constipation Donepezil HCl (Aricept) 5 mg PO BEDTIME [facility] Last Admin: 05/31/19 20:18 Dose: 5 mg Fish Oil (Fish Oil) 1 gm PO DAILY [facility] Last Admin: 05/31/19 08:48 Dose: 1 gm Glimepiride (Amaryl) 3 mg PO BIDMEALS [facility] Last Admin: 06/01/19 06:03 Dose: Not Given Hydromorphone HCl (Dilaudid) 0.25 mg IVPUSH Q2H PRN PRN Reason: Pain Last Admin: 06/01/19 03:20 Dose: 0.25 mg Ibuprofen (Motrin) 600 mg PO BID PRN PRN Reason: Pain Insulin Human Lispro (Humalog) 0 unit SUBCUT QIDACANDBED [facility]; Protocol Last Admin: 05/31/19 21:54 Dose: 6 units Loratadine (Claritin) 10 mg PO BEDTIME [facility] Last Admin: 05/31/19 20:18 Dose: 10 mg Losartan Potassium (Cozaar) 25 mg PO DAILY [facility] Last Admin: 05/31/19 11:49 Dose: 25 mg Metoprolol Tartrate (Lopressor) 5 mg IVPUSH Q4H PRN PRN Reason: HR >110 Last Admin: 06/01/19 02:08 Dose: 5 mg Miscellaneous Information (Remove Patch) 1 ea TRDERM ONETIME ONE Stop: 06/04/19 03:01 Ondansetron HCl (Zofran) 4 mg IV Q4H PRN PRN Reason: Nausea/Vomiting Last Admin: 06/01/19 04:39 Dose: 4 mg Oral Electrolytes (Thermotabs) 1 each PO TID [facility] Last Admin: 05/31/19 20:18 Dose: 1 each Pantoprazole Sodium (Protonix) 40 mg PO DAILY@0700 [facility] Last Admin: 06/01/19 06:03 Dose: Not Given Mirabegron [ (Myrbetriq] 50 Mg) 0 each PO BEDTIME [facility] Last Admin: 05/31/19 20:24 Dose: 1 each Polyethylene Glycol (Miralax) 17 gm PO DAILY PRN PRN Reason: Constipation Saccharomyces Boulardii (Florastor) 250 mg PO DAILY [facility] Last Admin: 05/31/19 08:49 Dose: 250 mg Senna/Docusate Sodium (Senna Plus) 1 tab PO BID PRN PRN Reason: Constipation Sertraline HCl (Zoloft) 50 mg PO BEDTIME [facility] Last Admin: 05/31/19 20:24 Dose: 50 mg Simvastatin (Zocor) 5 mg PO MOWEFRSA [facility] Last Admin: 05/31/19 20:25 Dose: 5 mg Sodium Chloride (Saline Flush) 10 ml FLUSH ASDIRECTED PRN PRN Reason: Keep Vein Open Last Admin: 05/29/19 12:27 Dose: 10 ml Discontinued Medications Acetaminophen (Tylenol) 650 mg PO TID [facility] Last Admin: 05/30/19 08:04 Dose: Not Given Diltiazem HCl (Cardizem) 10 mg IVPUSH ONETIME ONE Stop: 06/01/19 03:13 Last Admin: 06/01/19 03:19 Dose: 10 mg Docusate Sodium (Colace) 100 mg PO BID PRN PRN Reason: Constipation Docusate Sodium (Colace) 100 mg PO BID PRN PRN Reason: Constipation Glimepiride (Amaryl) 1 mg PO BIDMEALS [facility] Last Admin: 05/31/19 06:47 Dose: 1 mg Glimepiride (Amaryl) 2 mg PO BIDMEALS [facility] Last Admin: 05/31/19 17:30 Dose: 2 mg Sodium Chloride (Normal Saline) 1,000 mls @ 999 mls/hr IV ONETIME [facility] Last Admin: 05/29/19 12:29 Dose: 999 mls/hr Sodium Chloride (Normal Saline) 1,000 mls @ 75 mls/hr IV ASDIRECTED [facility] Stop: 05/30/19 07:49 Last Admin: 05/29/19 22:51 Dose: 75 mls/hr Magnesium Sulfate 4 gm/ Premix 50 mls @ 12.5 mls/hr IV ONETIME ONE Stop: 05/30/19 12:57 Last Admin: 05/30/19 10:14 Dose: 12.5 mls/hr Insulin Human Lispro (Humalog) 0 unit SUBCUT QIDACANDBED PRN; Protocol PRN Reason: Hyperglycemia Last Admin: 05/30/19 22:24 Dose: 6 units Losartan Potassium (Cozaar) 25 mg PO ONETIME ONE Stop: 05/31/19 11:46 Last Admin: 05/31/19 11:50 Dose: Not Given Lactobacillus Acidophilus 1 Tab # Patient's Own Med# 1 tab PO DAILY [facility] Last Admin: 05/30/19 10:13 Dose: 1 tab Lidocaine/Methyl [place] /Menthol Patch 1 Each #Patient's Own Med# 1 each TP DAILY PRN PRN Reason: Pain Losartan 50 Mg Tab # (Patient's Own Med#) 0 each PO DAILY [facility] Last Admin: 05/30/19 10:15 Dose: 0.5 each Non-Formulary Medication (Polyethylene Glycol 3350 [Polyethylene Glycol 3350]) 17 gm PO ASDIRECTED [facility] Pravastatin 10 Mg # (Patient's Own Med#) 10 mg PO MOWEFRSA [facility] Last Admin: 05/30/19 11:46 Dose: Not Given Sertraline 50 Mg Tab (#Patient's Own Med#) 50 each PO BEDTIME [facility] Last Admin: 05/30/19 21:36 Dose: Not Given Tylenol 650mg Tabs * (Own Med) 1 each PO TID [facility] Last Admin: 05/30/19 10:13 Dose: 1 each Tylenol 650mg Tabs * (Own Med) 1 each PO ONETIME ONE Stop: 05/29/19 22:46 Last Admin: 05/29/19 22:51 Dose: 1 each Omeprazole (Omeprazole) 20 mg PO DAILY@0700 [facility] Omeprazole (Omeprazole) 20 mg PO DAILY@0700 [facility] Last Admin: 05/30/19 06:47 Dose: 20 mg Ondansetron HCl (Zofran) 4 mg IVPUSH ONETIME ONE Stop: 05/29/19 14:12 Last Admin: 05/29/19 14:23 Dose: 4 mg Pantoprazole Sodium (Protonix) 40 mg PO DAILY@0700 [facility] Mirabegron [ (Myrbetriq] 50 Mg) 0 each PO BEDTIME [facility] Last Admin: 05/31/19 07:42 Dose: Not Given Saccharomyces Boulardii (Florastor) 250 mg PO DAILY [facility] Scopolamine (Transderm-Scop) 1.5 mg TRDERM ONETIME ONE Stop: 06/01/19 03:13 Last Admin: 06/01/19 03:19 Dose: 1.5 mg Sertraline HCl (Zoloft) 50 mg PO BEDTIME [facility] Last Admin: 05/31/19 05:07 Dose: Not Given Sertraline HCl (Zoloft) 50 mg PO ONETIME ONE Stop: 05/30/19 23:01 Sertraline HCl (Zoloft) 50 mg PO ONETIME ONE Stop: 05/30/19 23:01 Last Admin: 05/30/19 22:55 Dose: 50 mg Simvastatin (Zocor) 5 mg PO MOWE [facility] Last Admin: 05/31/19 15:26 Dose: Not Given - Exam General: Alert, Cooperative, No Acute Distress HEENT: Pupils Equal, Pupils Reactive, Mucous Membr. Moist/[place] Neck: Supple Lungs: Normal Respiratory Effort, Decreased Breath Sounds Cardiovascular: Regular Rate, Regular Rhythm GI/Abdominal Exam: Normal Bowel Sounds, Soft, Non-Tender, No Organomegaly, No Distention, No Abnormal Bruit (Female) Exam: Deferred Back Exam: Normal Inspection, Decreased Range of Motion Extremities: Normal Inspection, Normal Range of Motion, Non-Tender, No Pedal Edema, Normal Capillary Refill Peripheral Pulses: 2+: Dorsalis Pedis (L), Dorsalis Pedis (R) Skin: Warm, Dry, Intact Neurological: No New Focal Deficit. No: Normal Gait Psy/Mental Status: Alert, Normal Affect, Normal Mood - Problem List Review Problem List Initiated/Reviewed/Updated: Yes - My Orders Last 24 Hours: My Active Orders 05/31/19 06:43 Pantoprazole [ProTONIX] 40 mg PO DAILY@0700 05/31/19 08:45 Insulin Lispro [HumaLOG] See Protocol SUBCUT QIDACANDBED 05/31/19 15:00 Sodium Chloride/KCl [Thermotabs] 1 each PO TID 05/31/19 15:03 Patient's Own Medication [Ptom] 0 each PO BEDTIME 05/31/19 21:00 Donepezil [Aricept] 5 mg PO BEDTIME Sertraline [Zoloft] 50 mg PO BEDTIME Simvastatin [Zocor] 5 mg PO MOWEFRSA 06/01/19 02:01 Metoprolol Tartrate [Lopressor] 5 mg IVPUSH Q4H PRN 06/01/19 03:09 HYDROmorphone [Dilaudid] 0.25 mg IVPUSH Q2H PRN 06/01/19 06:00 EKG Documentation Completion [RC] ASDIRECTED EKG 12 Lead [EK] Routine 06/01/19 07:00 Glimepiride [Amaryl] 3 mg PO BIDMEALS 06/02/19 05:11 BASIC METABOLIC PANEL,BMP [CHEM] AM CBC WITH AUTO DIFF [HEME] AM CKMB [CHEM] AM MAGNESIUM [CHEM] AM 06/03/19 05:11 BASIC METABOLIC PANEL,BMP [CHEM] AM CBC WITH AUTO DIFF [HEME] AM MAGNESIUM [CHEM] AM 06/04/19 03:00 Remove Patch 1 michael JERRY ONETIME ONE - Plan Plan:: Assessment: 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 - This maybe her new baseline - 2/2 Medications Side Effects - She is more alert and awake, able to engage - Hold Some Medications: off xanax, gabapentin, tramadol and trazodone - Cognitive evaluation: Moderate-Severe Memory Impairment (Vascular Dementia) - Aricept 5 mg po daily S/p Constipation - Has chronic constipation - On numerous that could induced constipation - Dietary consult Generalized Weakness, Improved - Likely 2/2 poor nutritional intakes - She has no more GI issues - Oral intake has improved Hyponatremia - 124--> 128--> 129-->125-->126 - She is on HCTZ and SSRI: known to cause hyponatremia - Hold HCTZ and continue SSRI - Thermotabs 1 tab po TID Vit D Deficiency - Vit D level of 14.3 (low) - Oral supplement 1 tab daily Hyperglycemia - Permissive due to recent poor oral intake - BS in the 200-300s - Glimepiride 3 mg po BID - Accu-check QID w/ ISS high dose now - A1C is 7.10 -well controlled overall NSTEMI - Positive troponin x2 with negative EKG - She is already on ASA and Statin - Heparin drip per protocol PAF - HR was all over last night-went up to as high at 130s - Converted to sinus rhythm after administration of low dose Cardizem IVP - CHAsDS2-VAsc Score 4-5: high risk w/o anticoagulation but HAS BLED score 3 : Patient is at high risk for major bleeding - Has mode-severe memory impairment and her gait is unsteady - Coreg low dose and should benefit with high dose ASA once off Heparin drip Polypharmacy - Multiple medications with sedating and anti-cholinergics/anti-muscarinic effects - Will hold some tonight Chronic: Cataract, HTN, HLD, Constipation, Recurrent UTI/PNA, Spinal Stenosis, Back Pain, DM2 and Depression Plan: She remains clinically stable Routine AM Labs Fall Precautions GI/DVT Prophylaxis Prevention PT/OT to assess and treat Recommend SNF/NH SW/CM for d/c planning Code status: DNR/DNI Additional orders as above LOS > 96hrs pending NH/SNF placement
[2019-06-01] MEDS ORDERED: Magnesium Sulfate/Water 2 GM in Premix Bag 1 BAG IV ONE ×2 (07:26→10:00)
[2019-06-01] MEDS: Heparin Sodium/D5W 25,000 UNITS/500 ML BAG IV SCH (08:56)
[2019-06-01] MEDS ORDERED: Sodium Chloride 0.9% 1,000 ML IV SCH (09:15)
[2019-06-01] MEDS: Potassium Chloride 10 MEQ in Premix Bag 1 BAG IV SCH ×3 (09:40→22:20)
[2019-06-01] MEDS: Insulin Lispro 100 Units/ML 3 ML Vial SUBCUT SCH ×4 (09:40→21:40)
[2019-06-01] MEDS: Acetaminophen 325 MG Tab PO SCH ×3 (10:55→21:38)
[2019-06-01] MEDS: Saccharomyces Boulardii (Probiotic) 250 MG Cap PO SCH (10:55)
[2019-06-01] MEDS: Aspirin 81 MG Tab.EC PO SCH (10:56)
[2019-06-01] MEDS: Sodium Chloride/Potassium Chloride Tab PO SCH ×3 (10:56→21:37)
[2019-06-01] MEDS: Docusate Sodium 100 MG Cap PO SCH ×3 (10:57→21:37)
[2019-06-01] MEDS: Fish Oil/Omega-3 Fatty Acids 1 Gm Cap PO SCH (10:57)
[2019-06-01] MEDS: Cholecalciferol (Vitamin D3) 5,000 UNIT Tab PO SCH (10:57)
[2019-06-01] MEDS ORDERED: Potassium Chloride 20 MEQ Tab.ER PO ONE (12:00)
[2019-06-01] MEDS: Losartan 25 MG Tab PO SCH (15:29)
[2019-06-01] MEDS: Loratadine 10 MG Tab PO SCH (21:37)
[2019-06-01] MEDS: Donepezil 10 MG Tab PO SCH (21:37)
[2019-06-01] MEDS: Mirabegron [Myrbetriq] 50 MG PO SCH (21:45)
[2019-06-01] MEDS: Sertraline 50 MG Tab PO SCH (21:45)
[2019-06-02] MEDS: Carvedilol 3.125 MG Tab PO SCH ×2 (06:37→17:20)
[2019-06-02] MEDS: Glimepiride 2 MG Tab PO SCH ×2 (06:38→17:20)
[2019-06-02] MEDS: Pantoprazole 40 MG Tab.CR PO SCH (06:39)
[2019-06-02] MEDS: Insulin Lispro 100 Units/ML 3 ML Vial SUBCUT SCH ×4 (08:13→21:15)
[2019-06-02] MEDS: Saccharomyces Boulardii (Probiotic) 250 MG Cap PO SCH (08:57)
[2019-06-02] MEDS: Fish Oil/Omega-3 Fatty Acids 1 Gm Cap PO SCH (08:57)
[2019-06-02] MEDS: Sodium Chloride/Potassium Chloride Tab PO SCH ×3 (08:57→21:10)
[2019-06-02] MEDS: Acetaminophen 325 MG Tab PO SCH ×3 (08:58→21:11)
[2019-06-02] MEDS: Cholecalciferol (Vitamin D3) 5,000 UNIT Tab PO SCH (08:59)
[2019-06-02] MEDS: Aspirin 81 MG Tab.EC PO SCH (08:59)
[2019-06-02] MEDS: Docusate Sodium 100 MG Cap PO SCH ×3 (09:21→21:09)
[2019-06-02] MEDS: Losartan 25 MG Tab PO SCH (10:48)
--- NOTE | 2019-06-02 13:19 | PCM.PN ---
- General Info Date of Service: 06/02/19 Admission Dx/Problem (Free Text): Admission Diagnosis/Problem Admission Diagnosis/Problem Altered mental status Subjective Update: Had a little trouble last night and c/o chronic back pain. UA was ordered and her sample was suggestive of a simple UTI. She still feels tired. Her Na is at 126 Mg is 1.7 this morning. Functional Status: Reports: Pain Controlled, Tolerating Diet, Ambulating, Urinating, New Symptoms. Denies: Incentive Spirometry - Review of Systems General: Reports: Fatigue. Denies: Fever, Weakness, Chills Pulmonary: Denies: Shortness of Breath Cardiovascular: Denies: Chest Pain, Dyspnea on Exertion, Lightheadedness Gastrointestinal: Denies: Abdominal Pain, Nausea, Vomiting Genitourinary: Reports: No Symptoms Musculoskeletal: Reports: Back Pain Skin: Denies: Cyanosis, Diaphoresis, Bruising Neurological: Denies: Difficulty Walking, Gait Disturbance Psychiatric: Denies: Depression, Anxiety, Agitation, Hallucinations - Patient Data Vitals - Most Recent: Last Vital Signs Temp 37.0 C 06/02/19 07:15 Pulse 81 06/02/19 07:15 Resp 16 06/02/19 07:15 BP 120/56 L 06/02/19 09:03 Pulse Ox 93 L 06/02/19 07:15 Weight - Most Recent: 68.266 kg I&O - Last 24 Hours: Intake & Output 06/01/19 06/02/19 06/02/19 22:59 06:59 14:59 Intake Total 1415 397 360 Output Total 500 Balance 915 397 360 Lab Results Last 24 Hours: Laboratory Results - last 24 hr 06/01/19 06/01/19 06/01/19 Range/Units 15:00 17:24 19:30 WBC (3.98-10.04) K/mm3 RBC (3.98-5.22) M/mm3 Hgb (11.2-15.7) gm/dl Hct (34.1-44.9) % MCV (79.4-94.8) fl MCH (25.6-32.2) pg MCHC (32.2-35.5) g/dl RDW Std Deviation (36.4-46.3) fL Plt Count (182-369) K/mm3 MPV (9.4-12.3) fl Neut % (Auto) (34.0-71.1) % Lymph % (Auto) (19.3-51.7) % Martin % (Auto) (4.7-12.5) % Eos % (Auto) (0.7-5.8) Baso % (Auto) (0.1-1.2) % Neut # (Auto) (1.56-6.13) K/mm3 Lymph # (Auto) (1.18-3.74) K/mm3 Martin # (Auto) (0.24-0.36) K/mm3 Eos # (Auto) (0.04-0.36) K/mm3 Baso # (Auto) (0.01-0.08) K/mm3 Manual Slide Review APTT 51 H (22-31) SECONDS Sodium (136-145) mEq/L Potassium (3.5-5.1) mEq/L Chloride (98-107) mEq/L Carbon Dioxide (21-32) mEq/L Anion Gap (5-15) BUN (7-18) mg/dL Creatinine (0.55-1.02) mg/dL Est Cr Clr Drug Dosing mL/min Estimated GFR (MDRD) (>60) mL/min BUN/Creatinine Ratio (14-18) Glucose (83-115) mg/dL POC Glucose 80 L (83-110) mg/dL Calcium (8.5-10.1) mg/dL Magnesium (1.8-2.4) mg/dl CK-MB (CK-2) (0-3.6) ng/ml Urine Color Yellow (Yellow) Urine Appearance Clear (Clear) Urine pH 5.0 (5.0-8.0) Ur Specific [place] 1.025 (1.005-1.030) Urine Protein Negative (Negative) Urine Glucose (UA) 2+ H (Negative) Urine Ketones 1+ H (Negative) Urine Occult Blood 1+ H (Negative) Urine Nitrite Negative (Negative) Urine Bilirubin Negative (Negative) Urine Urobilinogen 0.2 (0.2-1.0) Ur Leukocyte Esterase 1+ H (Negative) Urine RBC 0-5 (0-5) /hpf Urine WBC 20-30 H (0-5) /hpf Ur Epithelial Cells 0-5 (0-5) /hpf Urine Bacteria Many H (FEW) /hpf Urine Mucus Few (FEW) /hpf 06/01/19 06/01/19 06/02/19 Range/Units 21:12 21:25 06:09 WBC (3.98-10.04) K/mm3 RBC (3.98-5.22) M/mm3 Hgb (11.2-15.7) gm/dl Hct (34.1-44.9) % MCV (79.4-94.8) fl MCH (25.6-32.2) pg MCHC (32.2-35.5) g/dl RDW Std Deviation (36.4-46.3) fL Plt Count (182-369) K/mm3 MPV (9.4-12.3) fl Neut % (Auto) (34.0-71.1) % Lymph % (Auto) (19.3-51.7) % Martin % (Auto) (4.7-12.5) % Eos % (Auto) (0.7-5.8) Baso % (Auto) (0.1-1.2) % Neut # (Auto) (1.56-6.13) K/mm3 Lymph # (Auto) (1.18-3.74) K/mm3 Martin # (Auto) (0.24-0.36) K/mm3 Eos # (Auto) (0.04-0.36) K/mm3 Baso # (Auto) (0.01-0.08) K/mm3 Manual Slide Review APTT 47 H D (22-31) SECONDS Sodium (136-145) mEq/L Potassium (3.5-5.1) mEq/L Chloride (98-107) mEq/L Carbon Dioxide (21-32) mEq/L Anion Gap (5-15) BUN (7-18) mg/dL Creatinine (0.55-1.02) mg/dL Est Cr Clr Drug Dosing mL/min Estimated GFR (MDRD) (>60) mL/min BUN/Creatinine Ratio (14-18) Glucose (83-115) mg/dL POC Glucose 256 H 176 H (83-110) mg/dL Calcium (8.5-10.1) mg/dL Magnesium (1.8-2.4) mg/dl CK-MB (CK-2) (0-3.6) ng/ml Urine Color (Yellow) Urine Appearance (Clear) Urine pH (5.0-8.0) Ur Specific [place] (1.005-1.030) Urine Protein (Negative) Urine Glucose (UA) (Negative) Urine Ketones (Negative) Urine Occult Blood (Negative) Urine Nitrite (Negative) Urine Bilirubin (Negative) Urine Urobilinogen (0.2-1.0) Ur Leukocyte Esterase (Negative) Urine RBC (0-5) /hpf Urine WBC (0-5) /hpf Ur Epithelial Cells (0-5) /hpf Urine Bacteria (FEW) /hpf Urine Mucus (FEW) /hpf 06/02/19 06/02/19 06/02/19 Range/Units 06:10 06:10 06:10 WBC 12.19 H (3.98-10.04) K/mm3 RBC 4.09 (3.98-5.22) M/mm3 Hgb 12.2 (11.2-15.7) gm/dl Hct 36.0 (34.1-44.9) % MCV 88.0 (79.4-94.8) fl MCH 29.8 (25.6-32.2) pg MCHC 33.9 (32.2-35.5) g/dl RDW Std Deviation 44.1 (36.4-46.3) fL Plt Count 246 (182-369) K/mm3 MPV 8.8 L (9.4-12.3) fl Neut % (Auto) 60.9 (34.0-71.1) % Lymph % (Auto) 20.5 (19.3-51.7) % Martin % (Auto) 17.1 H (4.7-12.5) % Eos % (Auto) 0.6 L (0.7-5.8) Baso % (Auto) 0.2 (0.1-1.2) % Neut # (Auto) 7.43 H (1.56-6.13) K/mm3 Lymph # (Auto) 2.50 (1.18-3.74) K/mm3 Martin # (Auto) 2.08 H (0.24-0.36) K/mm3 Eos # (Auto) 0.07 (0.04-0.36) K/mm3 Baso # (Auto) 0.03 (0.01-0.08) K/mm3 Manual Slide Review Abnormal smear APTT 62 H D (22-31) SECONDS Sodium 126 L (136-145) mEq/L Potassium 4.2 (3.5-5.1) mEq/L Chloride 93 L (98-107) mEq/L Carbon Dioxide 22 (21-32) mEq/L Anion Gap 15.2 H (5-15) BUN 15 (7-18) mg/dL Creatinine 0.9 (0.55-1.02) mg/dL Est Cr Clr Drug Dosing 39.89 mL/min Estimated GFR (MDRD) 59 (>60) mL/min BUN/Creatinine Ratio 16.7 (14-18) Glucose 178 H (83-115) mg/dL POC Glucose (83-110) mg/dL Calcium 8.6 (8.5-10.1) mg/dL Magnesium 1.7 L (1.8-2.4) mg/dl CK-MB (CK-2) 0.9 (0-3.6) ng/ml Urine Color (Yellow) Urine Appearance (Clear) Urine pH (5.0-8.0) Ur Specific [place] (1.005-1.030) Urine Protein (Negative) Urine Glucose (UA) (Negative) Urine Ketones (Negative) Urine Occult Blood (Negative) Urine Nitrite (Negative) Urine Bilirubin (Negative) Urine Urobilinogen (0.2-1.0) Ur Leukocyte Esterase (Negative) Urine RBC (0-5) /hpf Urine WBC (0-5) /hpf Ur Epithelial Cells (0-5) /hpf Urine Bacteria (FEW) /hpf Urine Mucus (FEW) /hpf 06/02/19 Range/Units 11:00 WBC (3.98-10.04) K/mm3 RBC (3.98-5.22) M/mm3 Hgb (11.2-15.7) gm/dl Hct (34.1-44.9) % MCV (79.4-94.8) fl MCH (25.6-32.2) pg MCHC (32.2-35.5) g/dl RDW Std Deviation (36.4-46.3) fL Plt Count (182-369) K/mm3 MPV (9.4-12.3) fl Neut % (Auto) (34.0-71.1) % Lymph % (Auto) (19.3-51.7) % Martin % (Auto) (4.7-12.5) % Eos % (Auto) (0.7-5.8) Baso % (Auto) (0.1-1.2) % Neut # (Auto) (1.56-6.13) K/mm3 Lymph # (Auto) (1.18-3.74) K/mm3 Martin # (Auto) (0.24-0.36) K/mm3 Eos # (Auto) (0.04-0.36) K/mm3 Baso # (Auto) (0.01-0.08) K/mm3 Manual Slide Review APTT (22-31) SECONDS Sodium (136-145) mEq/L Potassium (3.5-5.1) mEq/L Chloride (98-107) mEq/L Carbon Dioxide (21-32) mEq/L Anion Gap (5-15) BUN (7-18) mg/dL Creatinine (0.55-1.02) mg/dL Est Cr Clr Drug Dosing mL/min Estimated GFR (MDRD) (>60) mL/min BUN/Creatinine Ratio (14-18) Glucose (83-115) mg/dL POC Glucose 332 H (83-110) mg/dL Calcium (8.5-10.1) mg/dL Magnesium (1.8-2.4) mg/dl CK-MB (CK-2) (0-3.6) ng/ml Urine Color (Yellow) Urine Appearance (Clear) Urine pH (5.0-8.0) Ur Specific [place] (1.005-1.030) Urine Protein (Negative) Urine Glucose (UA) (Negative) Urine Ketones (Negative) Urine Occult Blood (Negative) Urine Nitrite (Negative) Urine Bilirubin (Negative) Urine Urobilinogen (0.2-1.0) Ur Leukocyte Esterase (Negative) Urine RBC (0-5) /hpf Urine WBC (0-5) /hpf Ur Epithelial Cells (0-5) /hpf Urine Bacteria (FEW) /hpf Urine Mucus (FEW) /hpf Med Orders - Current: Current Medications Acetaminophen (Tylenol) 650 mg PO Q4H PRN PRN Reason: Pain (Mild 1-3)/fever Acetaminophen (Tylenol) 650 mg PO TID [facility] Last Admin: 06/02/19 08:58 Dose: 650 mg Albuterol/Ipratropium (Duoneb 3.0-0.5 Mg/3 Ml) 3 ml NEB Q4H PRN PRN Reason: Shortness Of Breath/wheezing Aspirin (Halfprin) 81 mg PO DAILY [facility] Last Admin: 06/02/19 08:59 Dose: 81 mg Bisacodyl (Dulcolax) 5 mg PO DAILY PRN PRN Reason: Constipation Carvedilol (Coreg) 3.125 mg PO BIDMEALS [facility] Last Admin: 06/02/19 06:37 Dose: 3.125 mg Cholecalciferol (Vitamin D3) 5,000 unit PO DAILY [facility] Last Admin: 06/02/19 08:59 Dose: 5,000 unit Docusate Sodium (Colace) 100 mg PO TID [facility] Last Admin: 06/02/19 09:21 Dose: 100 mg Docusate Sodium (Colace) 100 mg PO BID PRN PRN Reason: Constipation Donepezil HCl (Aricept) 5 mg PO BEDTIME [facility] Last Admin: 06/01/19 21:37 Dose: 5 mg Fish Oil (Fish Oil) 1 gm PO DAILY [facility] Last Admin: 06/02/19 08:57 Dose: 1 gm Glimepiride (Amaryl) 3 mg PO BIDMEALS [facility] Last Admin: 06/02/19 06:38 Dose: 3 mg Hydromorphone HCl (Dilaudid) 0.25 mg IVPUSH Q2H PRN PRN Reason: Pain Last Admin: 06/01/19 03:20 Dose: 0.25 mg Heparin Sodium/Dextrose (Heparin 25,000 Units In D5w 500 Ml) 25,000 units in 500 mls @ 17.037 mls/hr IV TITRATE [facility]; Protocol Last Titration: 06/01/19 23:58 Dose: 14 units/kg/hr, 19.876 mls/hr Ibuprofen (Motrin) 600 mg PO BID PRN PRN Reason: Pain Insulin Human Lispro (Humalog) 0 unit SUBCUT QIDACANDBED [facility]; Protocol Last Admin: 06/02/19 11:45 Dose: 12 units Loratadine (Claritin) 10 mg PO BEDTIME [facility] Last Admin: 06/01/19 21:37 Dose: 10 mg Losartan Potassium (Cozaar) 25 mg PO DAILY [facility] Metoprolol Tartrate (Lopressor) 5 mg IVPUSH Q4H PRN PRN Reason: HR >110 Last Admin: 06/01/19 02:08 Dose: 5 mg Miscellaneous Information (Remove Patch) 1 ea TRDERM ONETIME ONE Stop: 06/04/19 03:01 Ondansetron HCl (Zofran) 4 mg IV Q4H PRN PRN Reason: Nausea/Vomiting Last Admin: 06/01/19 04:39 Dose: 4 mg Oral Electrolytes (Thermotabs) 1 each PO TID [facility] Last Admin: 06/02/19 08:57 Dose: 1 each Pantoprazole Sodium (Protonix) 40 mg PO DAILY@0700 [facility] Last Admin: 06/02/19 06:39 Dose: 40 mg Mirabegron [ (Myrbetriq] 50 Mg) 0 each PO BEDTIME [facility] Last Admin: 06/01/19 21:45 Dose: 1 each Polyethylene Glycol (Miralax) 17 gm PO DAILY PRN PRN Reason: Constipation Saccharomyces Boulardii (Florastor) 250 mg PO DAILY [facility] Last Admin: 06/02/19 08:57 Dose: 250 mg Senna/Docusate Sodium (Senna Plus) 1 tab PO BID PRN PRN Reason: Constipation Sertraline HCl (Zoloft) 50 mg PO BEDTIME [facility] Simvastatin (Zocor) 5 mg PO MOWEFRSA [facility] Last Admin: 05/31/19 20:25 Dose: 5 mg Sodium Chloride (Saline Flush) 10 ml FLUSH ASDIRECTED PRN PRN Reason: Keep Vein Open Last Admin: 05/29/19 12:27 Dose: 10 ml Discontinued Medications Acetaminophen (Tylenol) 650 mg PO TID [facility] Last Admin: 05/30/19 08:04 Dose: Not Given Diltiazem HCl (Cardizem) 10 mg IVPUSH ONETIME ONE Stop: 06/01/19 03:13 Last Admin: 06/01/19 03:19 Dose: 10 mg Docusate Sodium (Colace) 100 mg PO BID PRN PRN Reason: Constipation Docusate Sodium (Colace) 100 mg PO BID PRN PRN Reason: Constipation [facility] Last Admin: 05/31/19 06:47 Dose: 1 mg Glimepiride (Amaryl) 2 mg PO BIDMEALS [facility] Last Admin: 05/31/19 17:30 Dose: 2 mg Heparin Sodium (Porcine) (Heparin Sodium) 4,000 units IVPUSH .BOLUS ONE; Protocol Stop: 06/01/19 07:24 Last Admin: 06/01/19 08:41 Dose: 4,000 units Heparin Sodium (Porcine) (Heparin Sodium) 1,000 units IVPUSH ONETIME ONE Stop: 06/01/19 23:37 Last Admin: 06/01/19 23:57 Dose: 1,000 units Sodium Chloride (Normal Saline) 1,000 mls @ 999 mls/hr IV ONETIME [facility] Last Admin: 05/29/19 12:29 Dose: 999 mls/hr Sodium Chloride (Normal Saline) 1,000 mls @ 75 mls/hr IV ASDIRECTED [facility] Stop: 05/30/19 07:49 Last Admin: 05/29/19 22:51 Dose: 75 mls/hr Magnesium Sulfate 4 gm/ Premix 50 mls @ 12.5 mls/hr IV ONETIME ONE Stop: 05/30/19 12:57 Last Admin: 05/30/19 10:14 Dose: 12.5 mls/hr Potassium Chloride 10 meq/ (Premix) 100 mls @ 100 mls/hr IV Q1H [facility] Stop: 06/01/19 13:29 Last Admin: 06/01/19 22:20 Dose: Not Given Sodium Chloride (Normal Saline) 1,000 mls @ 50 mls/hr IV ASDIRECTED [facility] Last Admin: 06/01/19 09:40 Dose: 50 mls/hr Potassium Chloride 10 meq/ (Premix) 100 mls @ 100 mls/hr IV Q1H [facility] Stop: 06/01/19 15:29 Last Admin: 06/01/19 11:09 Dose: 100 mls/hr Magnesium Sulfate 2 gm/ Premix 50 mls @ 25 mls/hr IV ONETIME ONE Stop: 06/01/19 11:59 Last Admin: 06/01/19 10:58 Dose: 25 mls/hr Insulin Human Lispro (Humalog) 0 unit SUBCUT QIDACANDBED PRN; Protocol PRN Reason: Hyperglycemia Last Admin: 05/30/19 22:24 Dose: 6 units Losartan Potassium (Cozaar) 25 mg PO DAILY [facility] Last Admin: 06/02/19 10:48 Dose: Not Given Losartan Potassium (Cozaar) 25 mg PO ONETIME ONE Stop: 05/31/19 11:46 Last Admin: 05/31/19 11:50 Dose: Not Given Lactobacillus Acidophilus 1 Tab # Patient's Own Med# 1 tab PO DAILY [facility] Last Admin: 05/30/19 10:13 Dose: 1 tab Lidocaine/Methyl Malik /Menthol Patch 1 Each #Patient's Own Med# 1 each TP DAILY PRN PRN Reason: Pain Losartan 50 Mg Tab # (Patient's Own Med#) 0 each PO DAILY [facility] Last Admin: 05/30/19 10:15 Dose: 0.5 each Non-Formulary Medication (Polyethylene Glycol 3350 [Polyethylene Glycol 3350]) 17 gm PO ASDIRECTED [facility] Pravastatin 10 Mg # (Patient's Own Med#) 10 mg PO MOWEFRSA [facility] Last Admin: 05/30/19 11:46 Dose: Not Given Sertraline 50 Mg Tab (#Patient's Own Med#) 50 each PO BEDTIME [facility] Last Admin: 05/30/19 21:36 Dose: Not Given Tylenol 650mg Tabs * (Own Med) 1 each PO TID [facility] Last Admin: 05/30/19 10:13 Dose: 1 each Tylenol 650mg Tabs * (Own Med) 1 each PO ONETIME ONE Stop: 05/29/19 22:46 Last Admin: 05/29/19 22:51 Dose: 1 each Omeprazole (Omeprazole) 20 mg PO DAILY@0700 [facility] Omeprazole (Omeprazole) 20 mg PO DAILY@0700 [facility] Last Admin: 05/30/19 06:47 Dose: 20 mg Ondansetron HCl (Zofran) 4 mg IVPUSH ONETIME ONE Stop: 05/29/19 14:12 Last Admin: 05/29/19 14:23 Dose: 4 mg Pantoprazole Sodium (Protonix) 40 mg PO DAILY@0700 [facility] Mirabegron [ (Myrbetriq] 50 Mg) 0 each PO BEDTIME [facility] Last Admin: 05/31/19 07:42 Dose: Not Given Potassium Chloride (Klor-Con M20) 60 meq PO ONETIME ONE Stop: 06/01/19 12:01 Last Admin: 06/01/19 12:39 Dose: 60 meq Saccharomyces Boulardii (Florastor) 250 mg PO DAILY [facility] Scopolamine (Transderm-Scop) 1.5 mg TRDERM ONETIME ONE Stop: 06/01/19 03:13 Last Admin: 06/01/19 03:19 Dose: 1.5 mg Sertraline HCl (Zoloft) 50 mg PO BEDTIME [facility] Last Admin: 05/31/19 05:07 Dose: Not Given Sertraline HCl (Zoloft) 50 mg PO BEDTIME [facility] Last Admin: 06/01/19 21:45 Dose: 50 mg Sertraline HCl (Zoloft) 50 mg PO ONETIME ONE Stop: 05/30/19 23:01 Sertraline HCl (Zoloft) 50 mg PO ONETIME ONE Stop: 05/30/19 23:01 Last Admin: 05/30/19 22:55 Dose: 50 mg Simvastatin (Zocor) 5 mg PO MOWEFRSA [facility] Last Admin: 05/31/19 15:26 Dose: Not Given - Exam General: Alert, Cooperative, No Acute Distress HEENT: Pupils Equal, Pupils Reactive, EOMI, Mucous Membr. Moist/[place] Neck: Supple Lungs: Clear to Auscultation, Normal Respiratory Effort Cardiovascular: Regular Rate, Regular Rhythm GI/Abdominal Exam: Normal Bowel Sounds, Soft, Non-Tender, No Organomegaly, No Distention, No Abnormal Bruit (Female) Exam: Deferred Back Exam: Normal Inspection, Decreased Range of Motion Extremities: Normal Inspection, Normal Range of Motion, Non-Tender, No Pedal Edema, Normal Capillary Refill Skin: Warm, Dry, Intact Neurological: No New Focal Deficit Psy/Mental Status: Alert, Normal Affect, Normal Mood - Problem List Review Problem List Initiated/Reviewed/Updated: Yes - My Orders Last 24 Hours: My Active Orders 06/02/19 07:00 Carvedilol [Coreg] 3.125 mg PO BIDMEALS 06/02/19 09:30 Losartan [Cozaar] 25 mg PO DAILY Sertraline [Zoloft] 50 mg PO BEDTIME 06/02/19 13:02 PTT,PARTIAL THROMBOPLSTIN TIME [COAG] Timed 06/02/19 Dinner Fluid Restriction [DIET] 06/03/19 05:11 BASIC METABOLIC PANEL,BMP [CHEM] AM CBC WITH AUTO DIFF [HEME] AM MAGNESIUM [CHEM] AM 06/04/19 03:00 Remove Patch 1 ea ROSALINO ONETIME ONE - Plan Plan:: Assessment: 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 - This maybe her new baseline - 2/2 Medications Side Effects - She is more alert and awake, able to engage - Hold Some Medications: off xanax, gabapentin, tramadol and trazodone - Cognitive evaluation: Moderate-Severe Memory Impairment (Vascular Dementia) - Continue Aricept 5 mg po daily Generalized Weakness, Improved - Likely 2/2 poor nutritional intakes - She has no more GI issues - Oral intake has improved Hyponatremia - 124--> 128--> 129-->125-->126 - She is on HCTZ and SSRI: known to cause hyponatremia - Hold HCTZ and continue SSRI - Thermotabs 2 tabs po TID plus fluid restriction Vit D Deficiency - Vit D level of 14.3 (low) - Continue Oral supplement 1 tab daily Hyperglycemia, Improved - Permissive due to recent poor oral intake - BS in the 200-300s - Glimepiride 3 mg po BID - Accu-check QID w/ ISS high dose now - A1C is 7.10 -well controlled overall NSTEMI - Positive troponin x2 with negative EKG - She is already on ASA and Statin - Heparin drip per protocol for 24hrs PAF - HR was all over last night-went up to as high at 130s - Converted to sinus rhythm after administration of low dose Cardizem IVP - CHAsDS2-VAsc Score 4-5: high risk w/o anticoagulation but HAS BLED score 3 : Patient is at high risk for major bleeding - Has mode-severe memory impairment and her gait is unsteady - Continue low dose Coreg Asymptomatic Bacteriuria - UA shows bacteria and pos for LE - Rocephin 1 gram IV for 3 days Hypomagnesemia - Mg of 1.7 - Replete and monitor Polypharmacy - Multiple medications with sedating and anti-cholinergics/anti-muscarinic effects Chronic: Cataract, HTN, HLD, Constipation, Recurrent UTI/PNA, Spinal Stenosis, Back Pain, DM2 and Depression Plan: She remains clinically stable Routine AM Labs Fall Precautions GI/DVT Prophylaxis Sund Prevention Resume Gabapentin start at 100 mg po BID Low dose Seroquel PRN for Insomnia PT/OT to assess and treat Recommend SNF/NH SW/CM for d/c planning Code status: DNR/DNI Additional orders as above LOS > 96hrs pending NH/SNF placement likely next week Updated family at beside about her clinical progress, labs results, and treatment plan
[2019-06-02] MEDS: Heparin Sodium/D5W 25,000 UNITS/500 ML BAG IV SCH (13:33)
[2019-06-02] MEDS: cefTRIAXone 1 GM in Sodium Chloride 0.9% 100 ML IV SCH (14:18)
[2019-06-02] MEDS ORDERED: Magnesium Sulfate/Water 2 GM in Premix Bag 1 BAG IV ONE (18:09)
[2019-06-02] MEDS ORDERED: QUEtiapine 25 MG Tab PO PRN ×2 (21:00→21:01)
[2019-06-02] MEDS: Donepezil 10 MG Tab PO SCH (21:07)
[2019-06-02] MEDS: Loratadine 10 MG Tab PO SCH (21:09)
[2019-06-02] MEDS: Mirabegron [Myrbetriq] 50 MG PO SCH (21:10)
[2019-06-02] MEDS: Gabapentin 100 MG Cap PO SCH (21:10)
[2019-06-02] MEDS: Simvastatin 10 MG Tab PO SCH (21:12)
[2019-06-02] MEDS: Sertraline 50 MG Tab PO SCH (21:12)
[2019-06-02] MEDS: QUEtiapine 25 MG Tab PO PRN (21:32)
[2019-06-03] MEDS: Ondansetron 4 MG/2 ML SDV IV PRN (04:21)
[2019-06-03] MEDS: Heparin Sodium 5,000 Units/ML Vial SUBCUT SCH ×2 (07:10→14:07)
[2019-06-03] MEDS: Glimepiride 2 MG Tab PO SCH ×2 (07:10→17:49)
[2019-06-03] MEDS: Carvedilol 3.125 MG Tab PO SCH ×2 (07:11→17:50)
[2019-06-03] MEDS: Pantoprazole 40 MG Tab.CR PO SCH (07:12)
--- NOTE | 2019-06-03 07:16 | PCM.PN ---
- General Info Date of Service: 06/03/19 Admission Dx/Problem (Free Text): Admission Diagnosis/Problem Admission Diagnosis/Problem Altered mental status Subjective Update: Had nausea, dry heaves, and chronic back pain overnight. UA was ordered and her sample was suggestive of a simple UTI. Per night nurse, she was not as confused or agitated as the night before. She states "I don't feel good" but unable to tell me exactly what was wrong with her. However she "feels tired". Her Na was at 126 and Mg was 1.7 for morning labs. Functional Status: Reports: Pain Controlled, Tolerating Diet, Ambulating, Urinating. Denies: New Symptoms - Review of Systems General: Reports: Weakness, Malaise. Denies: Fever, Chills HEENT: Denies: No Symptoms Pulmonary: Denies: Shortness of Breath Cardiovascular: Denies: Chest Pain, Dyspnea on Exertion, Lightheadedness Gastrointestinal: Reports: Diarrhea. Denies: Abdominal Pain, Nausea, Vomiting Genitourinary: Reports: No Symptoms Musculoskeletal: Reports: Back Pain Skin: Reports: No Symptoms Neurological: Reports: No Symptoms, Weakness, Gait Disturbance Psychiatric: Reports: Confusion (baseline confusion). Denies: Depression, Anxiety, Agitation, Hallucinations - Patient Data Vitals - Most Recent: Last Vital Signs Temp 36.5 C 06/03/19 04:28 Pulse 72 06/03/19 07:11 Resp 14 06/03/19 04:28 BP 133/91 H 06/03/19 07:11 Pulse Ox 94 L 06/03/19 04:28 Weight - Most Recent: 72.756 kg I&O - Last 24 Hours: Intake & Output 06/02/19 06/03/19 06/03/19 22:59 06:59 14:59 Intake Total 901 125 Output Total 400 Balance 501 125 Lab Results Last 24 Hours: Laboratory Results - last 24 hr 06/02/19 06/02/19 06/02/19 Range/Units 06:10 11:00 13:02 WBC (3.98-10.04) K/mm3 RBC (3.98-5.22) M/mm3 Hgb (11.2-15.7) gm/dl Hct (34.1-44.9) % MCV (79.4-94.8) fl MCH (25.6-32.2) pg MCHC (32.2-35.5) g/dl RDW Std Deviation (36.4-46.3) fL Plt Count (182-369) K/mm3 MPV (9.4-12.3) fl Neut % (Auto) (34.0-71.1) % Lymph % (Auto) (19.3-51.7) % [place] % (Auto) (4.7-12.5) % Eos % (Auto) (0.7-5.8) Baso % (Auto) (0.1-1.2) % Neut # (Auto) (1.56-6.13) K/mm3 Lymph # (Auto) (1.18-3.74) K/mm3 [place] # (Auto) (0.24-0.36) K/mm3 Eos # (Auto) (0.04-0.36) K/mm3 Baso # (Auto) (0.01-0.08) K/mm3 Manual Slide Review Abnormal smear APTT 50 H D (22-31) SECONDS Sodium (136-145) mEq/L Potassium (3.5-5.1) mEq/L Chloride (98-107) mEq/L Carbon Dioxide (21-32) mEq/L Anion Gap (5-15) BUN (7-18) mg/dL Creatinine (0.55-1.02) mg/dL Est Cr Clr Drug Dosing mL/min Estimated GFR (MDRD) (>60) mL/min BUN/Creatinine Ratio (14-18) Glucose (83-115) mg/dL POC Glucose 332 H (83-110) mg/dL Calcium (8.5-10.1) mg/dL Magnesium (1.8-2.4) mg/dl 06/02/19 06/02/19 06/03/19 Range/Units 16:42 21:16 06:07 WBC 11.00 H (3.98-10.04) K/mm3 RBC 4.17 (3.98-5.22) M/mm3 Hgb 12.6 (11.2-15.7) gm/dl Hct 36.7 (34.1-44.9) % MCV 88.0 (79.4-94.8) fl MCH 30.2 (25.6-32.2) pg MCHC 34.3 (32.2-35.5) g/dl RDW Std Deviation 43.1 (36.4-46.3) fL Plt Count 240 (182-369) K/mm3 MPV 8.7 L (9.4-12.3) fl Neut % (Auto) 63.9 (34.0-71.1) % Lymph % (Auto) 15.5 L (19.3-51.7) % [place] % (Auto) 18.4 H (4.7-12.5) % Eos % (Auto) 1.0 (0.7-5.8) Baso % (Auto) 0.4 (0.1-1.2) % Neut # (Auto) 7.04 H (1.56-6.13) K/mm3 Lymph # (Auto) 1.70 (1.18-3.74) K/mm3 [place] # (Auto) 2.02 H (0.24-0.36) K/mm3 Eos # (Auto) 0.11 (0.04-0.36) K/mm3 Baso # (Auto) 0.04 (0.01-0.08) K/mm3 Manual Slide Review Abnormal smear APTT (22-31) SECONDS Sodium (136-145) mEq/L Potassium (3.5-5.1) mEq/L Chloride (98-107) mEq/L Carbon Dioxide (21-32) mEq/L Anion Gap (5-15) BUN (7-18) mg/dL Creatinine (0.55-1.02) mg/dL Est Cr Clr Drug Dosing mL/min Estimated GFR (MDRD) (>60) mL/min BUN/Creatinine Ratio (14-18) Glucose (83-115) mg/dL POC Glucose 143 H 239 H (83-110) mg/dL Calcium (8.5-10.1) mg/dL Magnesium (1.8-2.4) mg/dl 06/03/19 06/03/19 06/03/19 Range/Units 06:07 06:07 06:54 WBC (3.98-10.04) K/mm3 RBC (3.98-5.22) M/mm3 Hgb (11.2-15.7) gm/dl Hct (34.1-44.9) % MCV (79.4-94.8) fl MCH (25.6-32.2) pg MCHC (32.2-35.5) g/dl RDW Std Deviation (36.4-46.3) fL Plt Count (182-369) K/mm3 MPV (9.4-12.3) fl Neut % (Auto) (34.0-71.1) % Lymph % (Auto) (19.3-51.7) % [place] % (Auto) (4.7-12.5) % Eos % (Auto) (0.7-5.8) Baso % (Auto) (0.1-1.2) % Neut # (Auto) (1.56-6.13) K/mm3 Lymph # (Auto) (1.18-3.74) K/mm3 [place] # (Auto) (0.24-0.36) K/mm3 Eos # (Auto) (0.04-0.36) K/mm3 Baso # (Auto) (0.01-0.08) K/mm3 Manual Slide Review APTT 27 D (22-31) SECONDS Sodium 127 L (136-145) mEq/L Potassium 3.9 (3.5-5.1) mEq/L Chloride 93 L (98-107) mEq/L Carbon Dioxide 24 (21-32) mEq/L Anion Gap 13.9 (5-15) BUN 13 (7-18) mg/dL Creatinine 1.0 (0.55-1.02) mg/dL Est Cr Clr Drug Dosing 35.90 mL/min Estimated GFR (MDRD) 52 (>60) mL/min BUN/Creatinine Ratio 13.0 L (14-18) Glucose 205 H (83-115) mg/dL POC Glucose 181 H (83-110) mg/dL Calcium 8.5 (8.5-10.1) mg/dL Magnesium 1.8 (1.8-2.4) mg/dl Med Orders - Current: Current Medications Acetaminophen (Tylenol) 650 mg PO Q4H PRN PRN Reason: Pain (Mild 1-3)/fever Acetaminophen (Tylenol) 650 mg PO TID [facility] Last Admin: 06/02/19 21:11 Dose: 650 mg Albuterol/Ipratropium (Duoneb 3.0-0.5 Mg/3 Ml) 3 ml NEB Q4H PRN PRN Reason: Shortness Of Breath/wheezing Aspirin (Halfprin) 81 mg PO DAILY [facility] Last Admin: 06/02/19 08:59 Dose: 81 mg Bisacodyl (Dulcolax) 5 mg PO DAILY PRN PRN Reason: Constipation Carvedilol (Coreg) 3.125 mg PO BIDMEALS [facility] Last Admin: 06/03/19 07:11 Dose: 3.125 mg Cholecalciferol (Vitamin D3) 5,000 unit PO DAILY [facility] Last Admin: 06/02/19 08:59 Dose: 5,000 unit Docusate Sodium (Colace) 100 mg PO TID [facility] Last Admin: 06/02/19 21:09 Dose: 100 mg Docusate Sodium (Colace) 100 mg PO BID PRN PRN Reason: Constipation Donepezil HCl (Aricept) 5 mg PO BEDTIME [facility] Last Admin: 06/02/19 21:07 Dose: 5 mg Fish Oil (Fish Oil) 1 gm PO DAILY [facility] Last Admin: 06/02/19 08:57 Dose: 1 gm Gabapentin (Neurontin) 100 mg PO BID [facility] Last Admin: 06/02/19 21:10 Dose: 100 mg Glimepiride (Amaryl) 3 mg PO BIDMEALS [facility] Last Admin: 06/03/19 07:10 Dose: 3 mg Heparin Sodium (Porcine) (Heparin Sodium) 5,000 units SUBCUT Q8H [facility] Last Admin: 06/03/19 07:10 Dose: 5,000 units Hydromorphone HCl (Dilaudid) 0.25 mg IVPUSH Q2H PRN PRN Reason: Pain Last Admin: 06/01/19 03:20 Dose: 0.25 mg Ceftriaxone Sodium 1 gm/ (Sodium Chloride) 100 mls @ 200 mls/hr IV Q24H [facility] Last Admin: 06/02/19 14:18 Dose: 200 mls/hr Ibuprofen (Motrin) 600 mg PO BID PRN PRN Reason: Pain Insulin Human Lispro (Humalog) 0 unit SUBCUT QIDACANDBED [facility]; Protocol Last Admin: 06/02/19 21:15 Dose: 6 units Loratadine (Claritin) 10 mg PO BEDTIME [facility] Last Admin: 06/02/19 21:09 Dose: 10 mg Losartan Potassium (Cozaar) 25 mg PO DAILY [facility] Metoprolol Tartrate (Lopressor) 5 mg IVPUSH Q4H PRN PRN Reason: HR >110 Last Admin: 06/01/19 02:08 Dose: 5 mg Miscellaneous Information (Remove Patch) 1 ea TRDERM ONETIME ONE Stop: 06/04/19 03:01 Ondansetron HCl (Zofran) 4 mg IV Q4H PRN PRN Reason: Nausea/Vomiting Last Admin: 06/03/19 04:21 Dose: 4 mg Oral Electrolytes (Thermotabs) 2 each PO TID [facility] Last Admin: 06/02/19 21:10 Dose: 2 each Pantoprazole Sodium (Protonix) 40 mg PO DAILY@0700 [facility] Last Admin: 06/03/19 07:12 Dose: 40 mg Mirabegron [ (Myrbetriq] 50 Mg) 0 each PO BEDTIME [facility] Last Admin: 06/02/19 21:10 Dose: Not Given Polyethylene Glycol (Miralax) 17 gm PO DAILY PRN PRN Reason: Constipation Quetiapine Fumarate (Seroquel) 12.5 mg PO BEDTIME PRN PRN Reason: Insomnia Last Admin: 06/02/19 21:32 Dose: 12.5 mg Saccharomyces Boulardii (Florastor) 250 mg PO DAILY [facility] Last Admin: 06/02/19 08:57 Dose: 250 mg Senna/Docusate Sodium (Senna Plus) 1 tab PO BID PRN PRN Reason: Constipation Sertraline HCl (Zoloft) 50 mg PO BEDTIME [facility] Last Admin: 06/02/19 21:12 Dose: 50 mg Simvastatin (Zocor) 5 mg PO MOWEFRSA [facility] Last Admin: 06/02/19 21:12 Dose: 5 mg Sodium Chloride (Saline Flush) 10 ml FLUSH ASDIRECTED PRN PRN Reason: Keep Vein Open Last Admin: 05/29/19 12:27 Dose: 10 ml Discontinued Medications Acetaminophen (Tylenol) 650 mg PO TID [facility] Last Admin: 05/30/19 08:04 Dose: Not Given Diltiazem HCl (Cardizem) 10 mg IVPUSH ONETIME ONE Stop: 06/01/19 03:13 Last Admin: 06/01/19 03:19 Dose: 10 mg Docusate Sodium (Colace) 100 mg PO BID PRN PRN Reason: Constipation Docusate Sodium (Colace) 100 mg PO BID PRN PRN Reason: Constipation Glimepiride (Amaryl) 1 mg PO BIDMEALS [facility] Last Admin: 05/31/19 06:47 Dose: 1 mg Glimepiride (Amaryl) 2 mg PO BIDMEALS [facility] Last Admin: 05/31/19 17:30 Dose: 2 mg Heparin Sodium (Porcine) (Heparin Sodium) 4,000 units IVPUSH .BOLUS ONE; Protocol Stop: 06/01/19 07:24 Last Admin: 06/01/19 08:41 Dose: 4,000 units Heparin Sodium (Porcine) (Heparin Sodium) 1,000 units IVPUSH ONETIME ONE Stop: 06/01/19 23:37 Last Admin: 06/01/19 23:57 Dose: 1,000 units Sodium Chloride (Normal Saline) 1,000 mls @ 999 mls/hr IV ONETIME [facility] Last Admin: 05/29/19 12:29 Dose: 999 mls/hr Sodium Chloride (Normal Saline) 1,000 mls @ 75 mls/hr IV ASDIRECTED [facility] Stop: 05/30/19 07:49 Last Admin: 05/29/19 22:51 Dose: 75 mls/hr Magnesium Sulfate 4 gm/ Premix 50 mls @ 12.5 mls/hr IV ONETIME ONE Stop: 05/30/19 12:57 Last Admin: 05/30/19 10:14 Dose: 12.5 mls/hr Heparin Sodium/Dextrose (Heparin 25,000 Units In D5w 500 Ml) 25,000 units in 500 mls @ 17.037 mls/hr IV TITRATE [facility]; Protocol Last Admin: 06/02/19 13:33 Dose: 14 units/kg/hr, 19.876 mls/hr Potassium Chloride 10 meq/ (Premix) 100 mls @ 100 mls/hr IV Q1H [facility] Stop: 06/01/19 13:29 Last Admin: 06/01/19 22:20 Dose: Not Given Sodium Chloride (Normal Saline) 1,000 mls @ 50 mls/hr IV ASDIRECTED [facility] Last Admin: 06/01/19 09:40 Dose: 50 mls/hr Potassium Chloride 10 meq/ (Premix) 100 mls @ 100 mls/hr IV Q1H [facility] Stop: 06/01/19 15:29 Last Admin: 06/01/19 11:09 Dose: 100 mls/hr Magnesium Sulfate 2 gm/ Premix 50 mls @ 25 mls/hr IV ONETIME ONE Stop: 06/01/19 11:59 Last Admin: 06/01/19 10:58 Dose: 25 mls/hr Magnesium Sulfate 2 gm/ Premix 50 mls @ 25 mls/hr IV ONETIME ONE Stop: 06/02/19 20:08 Last Admin: 06/02/19 18:28 Dose: 25 mls/hr Insulin Human Lispro (Humalog) 0 unit SUBCUT QIDACANDBED PRN; Protocol PRN Reason: Hyperglycemia Last Admin: 05/30/19 22:24 Dose: 6 units Losartan Potassium (Cozaar) 25 mg PO DAILY [facility] Last Admin: 06/02/19 10:48 Dose: Not Given Losartan Potassium (Cozaar) 25 mg PO ONETIME ONE Stop: 05/31/19 11:46 Last Admin: 05/31/19 11:50 Dose: Not Given Lactobacillus Acidophilus 1 Tab # Patient's Own Med# 1 tab PO DAILY [facility] Last Admin: 05/30/19 10:13 Dose: 1 tab Lidocaine/Methyl Malik /Menthol Patch 1 Each #Patient's Own Med# 1 each TP DAILY PRN PRN Reason: Pain Losartan 50 Mg Tab # (Patient's Own Med#) 0 each PO DAILY [facility] Last Admin: 05/30/19 10:15 Dose: 0.5 each Non-Formulary Medication (Polyethylene Glycol 3350 [Polyethylene Glycol 3350]) 17 gm PO ASDIRECTED [facility] Pravastatin 10 Mg # (Patient's Own Med#) 10 mg PO MOWEFRSA [facility] Last Admin: 05/30/19 11:46 Dose: Not Given Sertraline 50 Mg Tab (#Patient's Own Med#) 50 each PO BEDTIME [facility] Last Admin: 05/30/19 21:36 Dose: Not Given Tylenol 650mg Tabs * (Own Med) 1 each PO TID [facility] Last Admin: 05/30/19 10:13 Dose: 1 each Tylenol 650mg Tabs * (Own Med) 1 each PO ONETIME ONE Stop: 05/29/19 22:46 Last Admin: 05/29/19 22:51 Dose: 1 each Omeprazole (Omeprazole) 20 mg PO DAILY@0700 [facility] Omeprazole (Omeprazole) 20 mg PO DAILY@0700 [facility] Last Admin: 05/30/19 06:47 Dose: 20 mg Ondansetron HCl (Zofran) 4 mg IVPUSH ONETIME ONE Stop: 05/29/19 14:12 Last Admin: 05/29/19 14:23 Dose: 4 mg Oral Electrolytes (Thermotabs) 1 each PO TID [facility] Last Admin: 06/02/19 08:57 Dose: 1 each Pantoprazole Sodium (Protonix) 40 mg PO DAILY@0700 [facility] Mirabegron [ (Myrbetriq] 50 Mg) 0 each PO BEDTIME [facility] Last Admin: 05/31/19 07:42 Dose: Not Given Potassium Chloride (Klor-Con M20) 60 meq PO ONETIME ONE Stop: 06/01/19 12:01 Last Admin: 06/01/19 12:39 Dose: 60 meq Quetiapine Fumarate (Seroquel) 12.5 mg PO BEDTIME PRN PRN Reason: Insomnia Quetiapine Fumarate (Seroquel) 6.25 mg PO BEDTIME PRN PRN Reason: Insomnia Saccharomyces Boulardii (Florastor) 250 mg PO DAILY [facility] Scopolamine (Transderm-Scop) 1.5 mg TRDERM ONETIME ONE Stop: 06/01/19 03:13 Last Admin: 06/01/19 03:19 Dose: 1.5 mg Sertraline HCl (Zoloft) 50 mg PO BEDTIME [facility] Last Admin: 05/31/19 05:07 Dose: Not Given Sertraline HCl (Zoloft) 50 mg PO BEDTIME [facility] Last Admin: 06/01/19 21:45 Dose: 50 mg Sertraline HCl (Zoloft) 50 mg PO ONETIME ONE Stop: 05/30/19 23:01 Sertraline HCl (Zoloft) 50 mg PO ONETIME ONE Stop: 05/30/19 23:01 Last Admin: 05/30/19 22:55 Dose: 50 mg Simvastatin (Zocor) 5 mg PO MOWEFRSA [facility] Last Admin: 05/31/19 15:26 Dose: Not Given - Exam General: Alert, Cooperative, No Acute Distress HEENT: Pupils Equal, Pupils Reactive, EOMI, Mucous Membr. Moist/[place] Neck: Supple Lungs: Normal Respiratory Effort, Decreased Breath Sounds Cardiovascular: Regular Rate, Regular Rhythm GI/Abdominal Exam: Normal Bowel Sounds, Non-Tender, No Organomegaly, No Distention, No Abnormal Bruit (Female) Exam: Deferred Back Exam: Normal Inspection, Decreased Range of Motion Extremities: Normal Inspection, Normal Range of Motion, Non-Tender, No Pedal Edema, Normal Capillary Refill Peripheral Pulses: 2+: Dorsalis Pedis (L), Dorsalis Pedis (R) Skin: Warm, Dry, Intact Neurological: No New Focal Deficit (limited but grossly intact). No: Normal Gait Psy/Mental Status: Alert, Normal Affect, Normal Mood - Problem List Review Problem List Initiated/Reviewed/Updated: Yes - My Orders Last 24 Hours: My Active Orders 06/02/19 07:00 Carvedilol [Coreg] 3.125 mg PO BIDMEALS 06/02/19 09:30 Losartan [Cozaar] 25 mg PO DAILY Sertraline [Zoloft] 50 mg PO BEDTIME 06/02/19 14:00 cefTRIAXone [Rocephin] 1 gm Sodium Chloride 0.9% [Normal Saline] 100 ml IV Q24H 06/02/19 15:00 Sodium Chloride/KCl [Thermotabs] 2 each PO TID 06/02/19 21:00 Gabapentin [Neurontin] 100 mg PO BID 06/02/19 21:02 QUEtiapine [SEROquel] 12.5 mg PO BEDTIME PRN 06/02/19 Dinner Fluid Restriction [DIET] 06/03/19 06:00 Heparin Sodium 5,000 units SUBCUT Q8H 06/04/19 03:00 Remove Patch 1 ea TRDERM ONETIME ONE 06/04/19 05:11 CRP [C-REACTIVE PROTEIN] [CHEM] AM 06/05/19 05:11 CRP [C-REACTIVE PROTEIN] [CHEM] AM 06/05/19 07:00 CBC W/O DIFF,HEMOGRAM [HEME] MOTH@0700 06/08/19 07:00 CBC W/O DIFF,HEMOGRAM [HEME] MOTH@0700 06/12/19 07:00 CBC W/O DIFF,HEMOGRAM [HEME] MOTH@0700 06/15/19 07:00 CBC W/O DIFF,HEMOGRAM [HEME] MOTH@0700 06/19/19 07:00 CBC W/O DIFF,HEMOGRAM [HEME] MOTH@0706/22/19 07:00 CBC W/O DIFF,HEMOGRAM [HEME] MOTH@699 - Plan Plan:: Assessment: 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 - This maybe her new baseline - 2/2 Medications Side Effects - She is more alert and awake, able to engage - Hold Some Medications: off xanax, gabapentin, tramadol and trazodone - Cognitive evaluation: Moderate-Severe Memory Impairment (Vascular Dementia) - Continue Aricept 5 mg po daily Generalized Weakness, Improved - Likely 2/2 poor nutritional intakes - She has no more GI issues - Oral intake has improved Hyponatremia - 124--> 128--> 129-->125-->126-->127 - She is on HCTZ and SSRI: known to cause hyponatremia - Hold HCTZ and continue SSRI - Thermotabs 2 tabs po TID plus fluid restriction Vit D Deficiency - Vit D level of 14.3 (low) - Continue Oral supplement 1 tab daily Hyperglycemia, Stable - Permissive due to recent poor oral intake - BS in the 200-300s - Glimepiride 3 mg po BID - Accu-check QID w/ ISS high dose now - A1C is 7.10 -well controlled overall S/p NSTEMI - Positive troponin x2 with negative EKG - She is already on ASA and Statin - Heparin drip per protocol for 24hrs PAF - HR was all over last night-went up to as high at 130s - Converted to sinus rhythm after administration of low dose Cardizem IVP - CHAsDS2-VAsc Score 4-5: high risk w/o anticoagulation but HAS BLED score 3 : Patient is at high risk for major bleeding - Has mod-severe memory impairment and her gait is unsteady - Continue low dose Coreg Asymptomatic Bacteriuria - UA shows bacteria and pos for LE - Rocephin 1 gram IV for 3 days Hypomagnesemia - Mg of 1.7-->1.8 - Replete and monitor Polypharmacy - Multiple medications with sedating and anti-cholinergics/anti-muscarinic effects Chronic: Cataract, HTN, HLD, Constipation, Recurrent UTI/PNA, Spinal Stenosis, Back Pain, DM2 and Depression Plan: She remains clinically stable Routine AM Labs Fall Precautions GI/DVT Prophylaxis Sundowning Prevention PT/OT to assess and treat SW/CM for d/c planning Code status: DNR/DNI Additional orders as above LOS > 96hrs pending NH/SNF placement likely next week Updated family at beside about her clinical progress, labs results, and treatment plan
[2019-06-03] MEDS: Insulin Lispro 100 Units/ML 3 ML Vial SUBCUT SCH ×4 (08:28→21:06)
[2019-06-03] MEDS ORDERED: Scopolamine 1.5 MG Transdermal Patch TRDERM PRN (08:28)
[2019-06-03] MEDS: Sodium Chloride/Potassium Chloride Tab PO SCH ×3 (08:29→21:02)
[2019-06-03] MEDS: Losartan 25 MG Tab PO SCH (08:29)
[2019-06-03] MEDS: Saccharomyces Boulardii (Probiotic) 250 MG Cap PO SCH (08:30)
[2019-06-03] MEDS: Docusate Sodium 100 MG Cap PO SCH ×3 (08:30→21:01)
[2019-06-03] MEDS: Fish Oil/Omega-3 Fatty Acids 1 Gm Cap PO SCH (08:30)
[2019-06-03] MEDS: Cholecalciferol (Vitamin D3) 5,000 UNIT Tab PO SCH (08:30)
[2019-06-03] MEDS: Aspirin 81 MG Tab.EC PO SCH (08:30)
[2019-06-03] MEDS: Gabapentin 100 MG Cap PO SCH ×2 (08:30→21:05)
[2019-06-03] MEDS: Acetaminophen 325 MG Tab PO SCH ×3 (08:30→21:02)
[2019-06-03] MEDS: cefTRIAXone 1 GM in Sodium Chloride 0.9% 100 ML IV SCH (14:04)
[2019-06-03] MEDS: Simvastatin 10 MG Tab PO SCH (21:01)
[2019-06-03] MEDS: Sertraline 50 MG Tab PO SCH (21:02)
[2019-06-03] MEDS: Loratadine 10 MG Tab PO SCH (21:04)
[2019-06-03] MEDS: Donepezil 10 MG Tab PO SCH (21:04)
[2019-06-03] MEDS: QUEtiapine 25 MG Tab PO PRN (21:05)
[2019-06-04] MEDS: Mirabegron [Myrbetriq] 50 MG PO SCH ×2 (01:54→20:54)
[2019-06-04] MEDS: Heparin Sodium 5,000 Units/ML Vial SUBCUT SCH ×4 (06:42→21:05)
[2019-06-04] MEDS: Glimepiride 2 MG Tab PO SCH ×2 (06:43→17:51)
[2019-06-04] MEDS: Carvedilol 3.125 MG Tab PO SCH ×2 (06:43→17:51)
[2019-06-04] MEDS: Pantoprazole 40 MG Tab.CR PO SCH (06:44)
[2019-06-04] MEDS: Insulin Lispro 100 Units/ML 3 ML Vial SUBCUT SCH ×4 (06:44→21:05)
[2019-06-04] MEDS: Sodium Chloride/Potassium Chloride Tab PO SCH ×3 (08:39→20:52)
[2019-06-04] MEDS: Docusate Sodium 100 MG Cap PO SCH ×3 (08:39→20:52)
[2019-06-04] MEDS: Gabapentin 100 MG Cap PO SCH ×2 (08:39→20:14)
[2019-06-04] MEDS: Cholecalciferol (Vitamin D3) 5,000 UNIT Tab PO SCH (08:39)
[2019-06-04] MEDS: Aspirin 81 MG Tab.EC PO SCH (08:39)
[2019-06-04] MEDS: Saccharomyces Boulardii (Probiotic) 250 MG Cap PO SCH (08:40)
[2019-06-04] MEDS: Losartan 25 MG Tab PO SCH (08:40)
[2019-06-04] MEDS: Acetaminophen 325 MG Tab PO SCH ×3 (08:40→20:14)
[2019-06-04] MEDS: Fish Oil/Omega-3 Fatty Acids 1 Gm Cap PO SCH (08:40)
--- NOTE | 2019-06-04 08:53 | PCM.PN ---
- General Info Date of Service: 06/04/19 Admission Dx/Problem (Free Text): Admission Diagnosis/Problem Admission Diagnosis/Problem Altered mental status Subjective Update: She had an uneventful night. She slept pretty well and no acute issues. Functional Status: Reports: Pain Controlled, Tolerating Diet, Ambulating, Urinating. Denies: New Symptoms - Review of Systems General: Denies: Fever, Chills HEENT: Reports: No Symptoms Pulmonary: Denies: Shortness of Breath Cardiovascular: Denies: Chest Pain, Dyspnea on Exertion, Lightheadedness Gastrointestinal: Denies: Abdominal Pain, Diarrhea, Nausea, Vomiting Genitourinary: Reports: No Symptoms Musculoskeletal: Reports: No Symptoms Skin: Denies: Cyanosis, Pallor, Diaphoresis, Bruising Neurological: Denies: Difficulty Walking, Weakness, Gait Disturbance Psychiatric: Denies: Confusion, Depression, Anxiety, Agitation, Hallucinations - Patient Data Vitals - Most Recent: Last Vital Signs Temp 36.8 C 06/04/19 05:04 Pulse 72 06/04/19 06:43 Resp 14 06/04/19 05:04 BP 134/65 06/04/19 08:40 Pulse Ox 96 06/04/19 05:04 Weight - Most Recent: 72.348 kg I&O - Last 24 Hours: Intake & Output 06/03/19 06/04/19 06/04/19 22:59 06:59 14:59 Intake Total 840 300 Output Total 550 675 Balance 290 -375 Lab Results Last 24 Hours: Laboratory Results - last 24 hr 06/03/19 06/03/19 06/03/19 Range/Units 11:26 17:04 20:37 Sodium (136-145) mEq/L Potassium (3.5-5.1) mEq/L Chloride (98-107) mEq/L Carbon Dioxide (21-32) mEq/L Anion Gap (5-15) BUN (7-18) mg/dL Creatinine (0.55-1.02) mg/dL Est Cr Clr Drug Dosing mL/min Estimated GFR (MDRD) (>60) mL/min BUN/Creatinine Ratio (14-18) Glucose (83-115) mg/dL POC Glucose 271 H 277 H 295 H (83-110) mg/dL Calcium (8.5-10.1) mg/dL Magnesium (1.8-2.4) mg/dl C-Reactive Protein (<1.0) mg/dL 06/04/19 06/04/19 06/04/19 Range/Units 05:28 05:28 06:39 Sodium 134 L (136-145) mEq/L Potassium 3.5 (3.5-5.1) mEq/L Chloride 99 (98-107) mEq/L Carbon Dioxide 24 (21-32) mEq/L Anion Gap 14.5 (5-15) BUN 16 (7-18) mg/dL Creatinine 1.0 (0.55-1.02) mg/dL Est Cr Clr Drug Dosing 35.90 mL/min Estimated GFR (MDRD) 52 (>60) mL/min BUN/Creatinine Ratio 16.0 (14-18) Glucose 125 H (83-115) mg/dL POC Glucose 122 H (83-110) mg/dL Calcium 8.8 (8.5-10.1) mg/dL Magnesium 1.8 (1.8-2.4) mg/dl C-Reactive Protein 0.2 (<1.0) mg/dL Bernardo Results Last 24 Hours: Microbiology 06/01/19 14:30 Urine Culture - Final Urine, Clean Catch Klebsiella Pneumoniae Med Orders - Current: Current Medications Acetaminophen (Tylenol) 650 mg PO Q4H PRN PRN Reason: Pain (Mild 1-3)/fever Acetaminophen (Tylenol) 650 mg PO TID COUNTS INCLUDE 234 BEDS AT THE [facility] Last Admin: 06/04/19 08:40 Dose: 650 mg Albuterol/Ipratropium (Duoneb 3.0-0.5 Mg/3 Ml) 3 ml NEB Q4H PRN PRN Reason: Shortness Of Breath/wheezing Aspirin (Halfprin) 81 mg PO DAILY COUNTS INCLUDE 234 BEDS AT THE [facility] Last Admin: 06/04/19 08:39 Dose: 81 mg Bisacodyl (Dulcolax) 5 mg PO DAILY PRN PRN Reason: Constipation Carvedilol (Coreg) 3.125 mg PO BIDMEALS COUNTS INCLUDE 234 BEDS AT [facility] Last Admin: 06/04/19 06:43 Dose: 3.125 mg Cholecalciferol (Vitamin D3) 5,000 unit PO DAILY COUNTS INCLUDE 234 BEDS AT THE [facility] Last Admin: 06/04/19 08:39 Dose: 5,000 unit Docusate Sodium (Colace) 100 mg PO TID COUNTS INCLUDE 234 BEDS AT [facility] Last Admin: 06/04/19 08:39 Dose: 100 mg Docusate Sodium (Colace) 100 mg PO BID PRN PRN Reason: Constipation Donepezil HCl (Aricept) 5 mg PO BEDTIME COUNTS INCLUDE 234 BEDS AT [facility] Last Admin: 06/03/19 21:04 Dose: 5 mg Fish Oil (Fish Oil) 1 gm PO DAILY COUNTS INCLUDE 234 BEDS AT [facility] Last Admin: 06/04/19 08:40 Dose: 1 gm Gabapentin (Neurontin) 100 mg PO BID COUNTS INCLUDE 234 BEDS AT [facility] Last Admin: 06/04/19 08:39 Dose: 100 mg Glimepiride (Amaryl) 3 mg PO BIDMEALS COUNTS INCLUDE 234 BEDS AT [facility] Last Admin: 06/04/19 06:43 Dose: 3 mg Heparin Sodium (Porcine) (Heparin Sodium) 5,000 units SUBCUT Q8H COUNTS INCLUDE 234 BEDS AT THE [facility] Last Admin: 06/04/19 06:45 Dose: 5,000 units Hydromorphone HCl (Dilaudid) 0.25 mg IVPUSH Q2H PRN PRN Reason: Pain Last Admin: 06/01/19 03:20 Dose: 0.25 mg Ceftriaxone Sodium 1 gm/ (Sodium Chloride) 100 mls @ 200 mls/hr IV Q24H COUNTS INCLUDE 234 BEDS AT THE [facility] Last Admin: 06/03/19 14:04 Dose: 200 mls/hr Ibuprofen (Motrin) 600 mg PO BID PRN PRN Reason: Pain Insulin Human Lispro (Humalog) 0 unit SUBCUT QIDACANDBED COUNTS INCLUDE 234 BEDS AT THE [facility]; Protocol Last Admin: 06/04/19 06:44 Dose: Not Given Loratadine (Claritin) 10 mg PO BEDTIME COUNTS INCLUDE 234 BEDS AT [facility] Last Admin: 06/03/19 21:04 Dose: 10 mg Losartan Potassium (Cozaar) 25 mg PO DAILY COUNTS INCLUDE 234 BEDS AT [facility] Last Admin: 06/04/19 08:40 Dose: 25 mg Metoprolol Tartrate (Lopressor) 5 mg IVPUSH Q4H PRN PRN Reason: HR >110 Last Admin: 06/01/19 02:08 Dose: 5 mg Ondansetron HCl (Zofran) 4 mg IV Q4H PRN PRN Reason: Nausea/Vomiting Last Admin: 06/03/19 04:21 Dose: 4 mg Oral Electrolytes (Thermotabs) 2 each PO TID COUNTS INCLUDE 234 BEDS AT [facility] Last Admin: 06/04/19 08:39 Dose: 2 each Pantoprazole Sodium (Protonix) 40 mg PO DAILY@0700 COUNTS INCLUDE 234 BEDS AT [facility] Last Admin: 06/04/19 06:44 Dose: 40 mg Mirabegron [ (Myrbetriq] 50 Mg) 0 each PO BEDTIME COUNTS INCLUDE 234 BEDS AT [facility] Last Admin: 06/04/19 01:54 Dose: Not Given Polyethylene Glycol (Miralax) 17 gm PO DAILY PRN PRN Reason: Constipation Quetiapine Fumarate (Seroquel) 12.5 mg PO BEDTIME PRN PRN Reason: Insomnia Last Admin: 06/03/19 21:05 Dose: 12.5 mg Saccharomyces Boulardii (Florastor) 250 mg PO DAILY COUNTS INCLUDE 234 BEDS AT [facility] Last Admin: 06/04/19 08:40 Dose: 250 mg Senna/Docusate Sodium (Senna Plus) 1 tab PO BID PRN PRN Reason: Constipation Sertraline HCl (Zoloft) 50 mg PO BEDTIME COUNTS INCLUDE 234 BEDS AT [facility] Last Admin: 06/03/19 21:02 Dose: 50 mg Simvastatin (Zocor) 5 mg PO MOWEFRSA COUNTS INCLUDE 234 BEDS AT [facility] Last Admin: 06/03/19 21:01 Dose: 5 mg Sodium Chloride (Saline Flush) 10 ml FLUSH ASDIRECTED PRN PRN Reason: Keep Vein Open Last Admin: 05/29/19 12:27 Dose: 10 ml Discontinued Medications Acetaminophen (Tylenol) 650 mg PO TID COUNTS INCLUDE 234 BEDS AT [facility] Last Admin: 05/30/19 08:04 Dose: Not Given Diltiazem HCl (Cardizem) 10 mg IVPUSH ONETIME ONE Stop: 06/01/19 03:13 Last Admin: 06/01/19 03:19 Dose: 10 mg Docusate Sodium (Colace) 100 mg PO BID PRN PRN Reason: Constipation Docusate Sodium (Colace) 100 mg PO BID PRN PRN Reason: Constipation Glimepiride (Amaryl) 1 mg PO BIDMEALS COUNTS INCLUDE 234 BEDS AT [facility] Last Admin: 05/31/19 06:47 Dose: 1 mg Glimepiride (Amaryl) 2 mg PO BIDMEALS COUNTS INCLUDE 234 BEDS AT [facility] Last Admin: 05/31/19 17:30 Dose: 2 mg Heparin Sodium (Porcine) (Heparin Sodium) 4,000 units IVPUSH .BOLUS ONE; Protocol Stop: 06/01/19 07:24 Last Admin: 06/01/19 08:41 Dose: 4,000 units Heparin Sodium (Porcine) (Heparin Sodium) 1,000 units IVPUSH ONETIME ONE Stop: 06/01/19 23:37 Last Admin: 06/01/19 23:57 Dose: 1,000 units Sodium Chloride (Normal Saline) 1,000 mls @ 999 mls/hr IV ONETIME COUNTS INCLUDE 234 BEDS AT [facility] Last Admin: 05/29/19 12:29 Dose: 999 mls/hr Sodium Chloride (Normal Saline) 1,000 mls @ 75 mls/hr IV ASDIRECTED COUNTS INCLUDE 234 BEDS AT [facility] Stop: 05/30/19 07:49 Last Admin: 05/29/19 22:51 Dose: 75 mls/hr Magnesium Sulfate 4 gm/ Premix 50 mls @ 12.5 mls/hr IV ONETIME ONE Stop: 05/30/19 12:57 Last Admin: 05/30/19 10:14 Dose: 12.5 mls/hr Heparin Sodium/Dextrose (Heparin 25,000 Units In D5w 500 Ml) 25,000 units in 500 mls @ 17.037 mls/hr IV TITRATE COUNTS INCLUDE 234 BEDS AT [facility]; Protocol Last Admin: 06/02/19 13:33 Dose: 14 units/kg/hr, 19.876 mls/hr Potassium Chloride 10 meq/ (Premix) 100 mls @ 100 mls/hr IV Q1H COUNTS INCLUDE 234 BEDS AT THE [facility] Stop: 06/01/19 13:29 Last Admin: 06/01/19 22:20 Dose: Not Given Sodium Chloride (Normal Saline) 1,000 mls @ 50 mls/hr IV ASDIRECTED COUNTS INCLUDE 234 BEDS AT [facility] Last Admin: 06/01/19 09:40 Dose: 50 mls/hr Potassium Chloride 10 meq/ (Premix) 100 mls @ 100 mls/hr IV Q1H COUNTS INCLUDE 234 BEDS AT [facility] Stop: 06/01/19 15:29 Last Admin: 06/01/19 11:09 Dose: 100 mls/hr Magnesium Sulfate 2 gm/ Premix 50 mls @ 25 mls/hr IV ONETIME ONE Stop: 06/01/19 11:59 Last Admin: 06/01/19 10:58 Dose: 25 mls/hr Magnesium Sulfate 2 gm/ Premix 50 mls @ 25 mls/hr IV ONETIME ONE Stop: 06/02/19 20:08 Last Admin: 06/02/19 18:28 Dose: 25 mls/hr Insulin Human Lispro (Humalog) 0 unit SUBCUT QIDACANDBED PRN; Protocol PRN Reason: Hyperglycemia Last Admin: 05/30/19 22:24 Dose: 6 units Losartan Potassium (Cozaar) 25 mg PO DAILY COUNTS INCLUDE 234 BEDS AT [facility] Last Admin: 06/02/19 10:48 Dose: Not Given Losartan Potassium (Cozaar) 25 mg PO ONETIME ONE Stop: 05/31/19 11:46 Last Admin: 05/31/19 11:50 Dose: Not Given Miscellaneous Information (Remove Patch) 1 ea TRDERM ONETIME ONE Stop: 06/04/19 03:01 Last Admin: 06/04/19 06:43 Dose: Not Given Lactobacillus Acidophilus 1 Tab # Patient's Own Med# 1 tab PO DAILY COUNTS INCLUDE 234 BEDS AT [facility] Last Admin: 05/30/19 10:13 Dose: 1 tab Lidocaine/Methyl Malik /Menthol Patch 1 Each #Patient's Own Med# 1 each TP DAILY PRN PRN Reason: Pain Losartan 50 Mg Tab # (Patient's Own Med#) 0 each PO DAILY COUNTS INCLUDE 234 BEDS AT [facility] Last Admin: 05/30/19 10:15 Dose: 0.5 each Non-Formulary Medication (Polyethylene Glycol 3350 [Polyethylene Glycol 3350]) 17 gm PO ASDIRECTED COUNTS INCLUDE 234 BEDS AT THE [facility] Pravastatin 10 Mg # (Patient's Own Med#) 10 mg PO MOWEFRSA COUNTS INCLUDE 234 BEDS AT [facility] Last Admin: 05/30/19 11:46 Dose: Not Given Sertraline 50 Mg Tab (#Patient's Own Med#) 50 each PO BEDTIME COUNTS INCLUDE 234 BEDS AT [facility] Last Admin: 05/30/19 21:36 Dose: Not Given Tylenol 650mg Tabs * (Own Med) 1 each PO TID COUNTS INCLUDE 234 BEDS AT [facility] Last Admin: 05/30/19 10:13 Dose: 1 each Tylenol 650mg Tabs * (Own Med) 1 each PO ONETIME ONE Stop: 05/29/19 22:46 Last Admin: 05/29/19 22:51 Dose: 1 each Omeprazole (Omeprazole) 20 mg PO DAILY@0700 COUNTS INCLUDE 234 BEDS AT [facility] Omeprazole (Omeprazole) 20 mg PO DAILY@0700 COUNTS INCLUDE 234 BEDS AT [facility] Last Admin: 05/30/19 06:47 Dose: 20 mg Ondansetron HCl (Zofran) 4 mg IVPUSH ONETIME ONE Stop: 05/29/19 14:12 Last Admin: 05/29/19 14:23 Dose: 4 mg Oral Electrolytes (Thermotabs) 1 each PO TID COUNTS INCLUDE 234 BEDS AT [facility] Last Admin: 06/02/19 08:57 Dose: 1 each Pantoprazole Sodium (Protonix) 40 mg PO DAILY@0700 COUNTS INCLUDE 234 BEDS AT [facility] Mirabegron [ (Myrbetriq] 50 Mg) 0 each PO BEDTIME COUNTS INCLUDE 234 BEDS AT [facility] Last Admin: 05/31/19 07:42 Dose: Not Given Potassium Chloride (Klor-Con M20) 60 meq PO ONETIME ONE Stop: 06/01/19 12:01 Last Admin: 06/01/19 12:39 Dose: 60 meq Quetiapine Fumarate (Seroquel) 12.5 mg PO BEDTIME PRN PRN Reason: Insomnia Quetiapine Fumarate (Seroquel) 6.25 mg PO BEDTIME PRN PRN Reason: Insomnia Saccharomyces Boulardii (Florastor) 250 mg PO DAILY COUNTS INCLUDE 234 BEDS AT THE [facility] Scopolamine (Transderm-Scop) 1.5 mg TRDERM ONETIME ONE Stop: 06/01/19 03:13 Last Admin: 06/01/19 03:19 Dose: 1.5 mg Scopolamine (Transderm-Scop) 1.5 mg TRDERM Q72H PRN PRN Reason: N/V Sertraline HCl (Zoloft) 50 mg PO BEDTIME COUNTS INCLUDE 234 BEDS AT [facility] Last Admin: 05/31/19 05:07 Dose: Not Given Sertraline HCl (Zoloft) 50 mg PO BEDTIME COUNTS INCLUDE 234 BEDS AT [facility] Last Admin: 06/01/19 21:45 Dose: 50 mg Sertraline HCl (Zoloft) 50 mg PO ONETIME ONE Stop: 05/30/19 23:01 Sertraline HCl (Zoloft) 50 mg PO ONETIME ONE Stop: 05/30/19 23:01 Last Admin: 05/30/19 22:55 Dose: 50 mg Simvastatin (Zocor) 5 mg PO MOWEFRSA COUNTS INCLUDE 234 BEDS AT [facility] Last Admin: 05/31/19 15:26 Dose: Not Given - Exam General: Alert, Cooperative, No Acute Distress HEENT: Pupils Equal, Pupils Reactive, EOMI, Mucous Membr. Moist/[place] Neck: Supple Lungs: Clear to Auscultation, Normal Respiratory Effort Cardiovascular: Regular Rate, Regular Rhythm GI/Abdominal Exam: Normal Bowel Sounds, Soft, Non-Tender, No Organomegaly, No Distention, No Abnormal Bruit (Female) Exam: Deferred Back Exam: Normal Inspection, Decreased Range of Motion Extremities: Normal Inspection, Normal Range of Motion, Non-Tender, No Pedal Edema, Normal Capillary Refill Peripheral Pulses: 2+: Dorsalis Pedis (L), Dorsalis Pedis (R) Skin: Warm, Dry, Intact Neurological: No New Focal Deficit Psy/Mental Status: Alert, Normal Affect, Normal Mood - Problem List Review Problem List Initiated/Reviewed/Updated: Yes - My Orders Last 24 Hours: My Active Orders 06/05/19 05:11 BMP [BASIC METABOLIC PANEL,BMP] [CHEM] AM CRP [C-REACTIVE PROTEIN] [CHEM] AM MG [MAGNESIUM] [CHEM] AM 06/05/19 07:00 CBC W/O DIFF,HEMOGRAM [HEME] MOTH@00 06/08/19 07:00 CBC W/O DIFF,HEMOGRAM [HEME] MOTH@00 06/12/19 07:00 CBC W/O DIFF,HEMOGRAM [HEME] MOTH@00 06/15/19 07:00 CBC W/O DIFF,HEMOGRAM [HEME] MOTH@00 06/19/19 07:00 CBC W/O DIFF,HEMOGRAM [HEME] MOTH@00 06/22/19 07:00 CBC W/O DIFF,HEMOGRAM [HEME] MOTH@699 - Plan Plan:: Assessment: 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 - This maybe her new baseline - 2/2 Medications Side Effects - She is more alert and awake, able to engage - Hold Some Medications: off xanax, gabapentin, tramadol and trazodone - Cognitive evaluation: Moderate-Severe Memory Impairment (Vascular Dementia) - Continue Aricept 5 mg po daily Generalized Weakness, Improved - Likely 2/2 poor nutritional intakes - She has no more GI issues - Oral intake has improved Hyponatremia - 124--> 128--> 129-->125-->126-->127-->134 - She is on HCTZ and SSRI: known to cause hyponatremia - Hold HCTZ and continue SSRI - Thermotabs 2 tabs po TID plus fluid restriction Vit D Deficiency - Vit D level of 14.3 (low) - Continue Oral supplement 1 tab daily Hyperglycemia, Stable - Permissive due to recent poor oral intake - BS in the 200-300s - Glimepiride 3 mg po BID - Accu-check QID w/ ISS high dose now - A1C is 7.10 -well controlled overall S/p NSTEMI - Positive troponin x2 with negative EKG - She is already on ASA and Statin - Heparin drip per protocol for 24hrs S/p PAF - HR was all over last night-went up to as high at 130s - Converted to sinus rhythm after administration of low dose Cardizem IVP - CHAsDS2-VAsc Score 4-5: high risk w/o anticoagulation but HAS BLED score 3 : Patient is at high risk for major bleeding - Has mod-severe memory impairment and her gait is unsteady - Continue low dose Coreg Asymptomatic Bacteriuria - UA shows bacteria and pos for LE - Rocephin 1 gram IV for 3 days Hypomagnesemia - Mg of 1.7-->1.8 - Replete and monitor Polypharmacy - Multiple medications with sedating and anti-cholinergics/anti-muscarinic effects Chronic: Cataract, HTN, HLD, Constipation, Recurrent UTI/PNA, Spinal Stenosis, Back Pain, DM2 and Depression Plan: She is essentially stable Routine AM Labs Fall Precautions GI/DVT Prophylaxis Prevention PT/OT to assess and treat SW/CM for d/c planning Code status: DNR/DNI Additional orders as above Possible discharge in AM
[2019-06-04] MEDS: cefTRIAXone 1 GM in Sodium Chloride 0.9% 100 ML IV SCH (14:13)
--- NOTE | 2019-06-04 19:33 | PCM.DCSUM1 ---
Discharge Summary - Hospital Course Free Text/Narrative:: This is an 89 yo elderly white female with past medical hx/o Cataract, HTN, HLD , Constipation, Recurrent UTI/PNA, Spinal Stenosis, Back Pain, DM2 and Depression who presents to ED with complaints of worsening confusion associated with generalized weakness along with nausea and vomiting over the past 2-3 weeks. Her family states that "she wants to sleep all the time". However her GI symptoms started about a couple of days ago after taking her salt tablets for her hyponatremia. Per ED notes, she had a head CT scan which showed no acute abnormal findings. Her ESR also was mild for concerns of muscular inflammation. Per family, she a significant and abrupt change of her current condition from 3 weeks ago. Her initial work up shows a negative UA with normal CRP level. Diagnosis: Stroke: No Modified David Scale: No Symptoms at All Modified Norton Scale Score: 0 - Discharge Data Discharge Date: 06/05/19 Discharge Disposition: DC/Tfer to Other 70 Condition: Good - Referral to Home Health Primary Care Physician: Jasmin Carlson NP - Patient Summary/Data Operative Procedure(s) Performed: None Complications: None Consults: Consultations 05/29/19 18:18 Consult to Case Management/Garde Manger [CONS] Routine OT Evaluation and Treatment [CONS] Routine PT Evaluation and Treatment [CONS] Routine 05/30/19 15:55 Consult to Speech Language Pathology [DIRECTOR OF ACADEMIC Evaluation and Treatment] [CONS] Routine 05/30/19 15:57 Consult to Speech Language Pathology [DIRECTOR OF ACADEMIC Evaluation and Treatment] [CONS] Routine Labs Pending at D/C: None Recommended Follow-up Testing/Procedures: None Planned Operative Procedure(s) after DC: None Hospital Course: The patient presented with AMS and was admitted primarily for polypharmacy, hyponatremia, and constipation. We held most of her home medications and immediately her mentation improved. She also had NSTEMI as well as Asymptomatic Bacteriuria during this hospitalization and she received appropriate treatment. Her hospital course was mildly uncomplicated and somewhat prolonged due to pending [facility] placement. However she was diagnosed with new onset of dementia w/o disruptive behavior and was put on low dose Aricept for initial maintenance medication. Once placement was secured and medically stable, she was then released right away from the hospital. She was advised to follow up with her PCP in 1 week after discharge. Informed family she may need psych evaluation after discharge to trim down some of her psychotropic medications. - Patient Instructions Diet: Diabetic Diet, Weight Loss Diet Activity: As Tolerated Driving: Do Not Drive Showering/Bathing: May Shower Notify Provider of: Fever, Increased Pain, Swelling and Redness, Nausea and/or Vomiting Other/Special Instructions: - Please take all new medications as directed. - Resume routine home medications and activity as tolerated. - Call or follow up with your doctor for any concerns or issues after discharge. - Follow up with your doctor in 1 week. - Come back or seek immediate care should your symptoms persist or get worse - Discharge Plan *PRESCRIPTION DRUG MONITORING PROGRAM REVIEWED*: Not Applicable *COPY OF PRESCRIPTION DRUG MONITORING REPORT IN PATIENT [facility]: Not Applicable Prescriptions/Med Rec: Aspirin [Aspirin EC] 325 mg PO DAILY #30 tablet. Carvedilol [Coreg] 3.125 mg PO BIDMEALS #60 tablet Cholecalciferol (Vitamin D3) [Vitamin D3] 5,000 unit PO DAILY #30 capsule Donepezil [Aricept] 5 mg PO BEDTIME #30 tab Furosemide [Lasix] 20 mg PO DAILY #30 tab Gabapentin [Neurontin] 100 mg PO BID #60 cap QUEtiapine [SEROquel] 12.5 mg PO BEDTIME PRN #30 tablet PRN Reason: Insomnia Sodium Chloride/KCl [Thermotabs] 1 each PO BID #10 tab Home Medications: Home Meds [place]-3 Fatty Acids [[place]-3] 1,000 mg PO DAILY 02/08/14 [History] metFORMIN [Glucophage] 750 mg PO BID 02/08/14 [History] Ibuprofen 600 mg PO BID PRN 08/19/15 [History] Losartan [Cozaar] 25 mg PO DAILY 08/19/15 [History] Omeprazole 20 mg PO DAILY 08/19/15 [History] Potassium Chloride [Klor-Con M20] 20 meq PO DAILY 08/19/15 [History] Pravastatin [Pravachol] 10 mg PO MOWEFRSA 08/19/15 [History] Lidocaine/Methyl Malik/Menthol [Lidopro Patch] 1 each TP DAILY PRN 06/25/16 [ History] Mirabegron [Myrbetriq] 50 mg PO BEDTIME 06/25/16 [History] Lactobacillus Acidophilus [Acidophilus Lactobacilli] 1 tab PO DAILY 02/19/18 [ History] Polyethylene Glycol 3350 17 gm PO DAILY 02/19/18 [History] Acetaminophen [Tylenol] 650 mg PO TID 09/09/18 [History] Docusate Sodium [Colace] 100 mg PO TID 09/09/18 [History] Loratadine [Claritin] 10 mg PO DAILY 09/09/18 [History] Sertraline [Zoloft] 50 mg PO DAILY 09/09/18 [History] Aspirin [Aspirin EC] 325 mg PO DAILY #30 tablet.dr 06/04/19 [Rx] Carvedilol [Coreg] 3.125 mg PO BIDMEALS #60 tablet 06/04/19 [Rx] Furosemide [Lasix] 20 mg PO DAILY #30 tab 06/04/19 [Rx] Gabapentin [Neurontin] 100 mg PO BID #60 cap 06/04/19 [Rx] Glimepiride [Amaryl] 2 mg PO BID #60 06/04/19 [Rx] Patient's Own Medication [Ptom] 0 each PO BEDTIME each 06/04/19 [Rx] QUEtiapine [SEROquel] 12.5 mg PO BEDTIME PRN #30 tablet 06/04/19 [Rx] Cholecalciferol (Vitamin D3) [Vitamin D3] 5,000 unit PO DAILY #30 capsule [Rx] Donepezil [Aricept] 5 mg PO BEDTIME #30 tab 06/05/19 [Rx] Sodium Chloride/KCl [Thermotabs] 1 each PO BID #10 tab 06/05/19 [Rx] Oxygen Therapy Mode: Room Air Patient Handouts: Hyponatremia, [id number], Hypomagnesemia, Constipation, Adult, [id number], Hyperglycemia, [id number], Nausea and Vomiting, Adult, Aspirin and Your Heart, Heart Attack, [id number], Dementia, [id number], Atrial Fibrillation, [id number] Referrals: Sarbjit Au MD [Physician] - 06/12/19 1:00 pm (SEE on 06/12/19 at 1pm) - Discharge Summary/Plan Comment DC Time >30 min.: No Discharge Summary/Plan Comment: Discharge to Home - General Info Date of Service: 06/05/19 Admission Dx/Problem (Free Text: Admission Diagnosis/Problem Admission Diagnosis/Problem Altered mental status Subjective Update: She had an uneventful night. She slept pretty well and no acute issues. Functional Status: Reports: Pain Controlled, Tolerating Diet, Ambulating, Urinating - Review of Systems General: Denies: Fever, Chills HEENT: Reports: No Symptoms Pulmonary: Denies: Shortness of Breath Cardiovascular: Denies: Chest Pain, Dyspnea on Exertion, Lightheadedness Gastrointestinal: Denies: Abdominal Pain, Nausea, Vomiting Genitourinary: Reports: No Symptoms Musculoskeletal: Reports: No Symptoms Skin: Reports: No Symptoms Neurological: Denies: Difficulty Walking, Weakness, Gait Disturbance Psychiatric: Reports: Confusion. Denies: Depression, Mood Lability, Anxiety, Agitation, Cravings, Hallucinations, Suicidal Ideation Systems Review Comment: Had an uneventful night. No acute issues. - Patient Data Vitals - Most Recent: Last Vital Signs Temp 36.9 C 06/04/19 08:31 Pulse 71 06/04/19 17:51 Resp 16 06/04/19 15:21 BP 123/76 06/04/19 17:51 Pulse Ox 95 06/04/19 17:49 Weight - Most Recent: 72.348 kg I&O - Last 24 hours: Intake & Output 06/04/19 06/04/19 06/04/19 06:59 14:59 22:59 Intake Total 580 770 Output Total 675 800 Balance -95 -30 Lab Results - Last 24 hrs: Laboratory Results - last 24 hr 06/03/19 06/04/19 06/04/19 Range/Units 20:37 05:28 05:28 Sodium 134 L (136-145) mEq/L Potassium 3.5 (3.5-5.1) mEq/L Chloride 99 (98-107) mEq/L Carbon Dioxide 24 (21-32) mEq/L Anion Gap 14.5 (5-15) BUN 16 (7-18) mg/dL Creatinine 1.0 (0.55-1.02) mg/dL Est Cr Clr Drug Dosing 35.90 mL/min Estimated GFR (MDRD) 52 (>60) mL/min BUN/Creatinine Ratio 16.0 (14-18) Glucose 125 H (83-115) mg/dL POC Glucose 295 H (83-110) mg/dL Calcium 8.8 (8.5-10.1) mg/dL Magnesium 1.8 (1.8-2.4) mg/dl C-Reactive Protein 0.2 (<1.0) mg/dL 06/04/19 06/04/19 Range/Units 06:39 11:13 Sodium (136-145) mEq/L Potassium (3.5-5.1) mEq/L Chloride (98-107) mEq/L Carbon Dioxide (21-32) mEq/L Anion Gap (5-15) BUN (7-18) mg/dL Creatinine (0.55-1.02) mg/dL Est Cr Clr Drug Dosing mL/min Estimated GFR (MDRD) (>60) mL/min BUN/Creatinine Ratio (14-18) Glucose (83-115) mg/dL POC Glucose 122 H 342 H (83-110) mg/dL Calcium (8.5-10.1) mg/dL Magnesium (1.8-2.4) mg/dl C-Reactive Protein (<1.0) mg/dL [place] Results - Last 24 hrs: Microbiology 06/01/19 14:30 Urine Culture - Final Urine, Clean Catch Klebsiella Pneumoniae Med Orders - Current: Current Medications Acetaminophen (Tylenol) 650 mg PO Q4H PRN PRN Reason: Pain (Mild 1-3)/fever Acetaminophen (Tylenol) 650 mg PO TID [facility] Last Admin: 06/04/19 14:15 Dose: 650 mg Albuterol/Ipratropium (Duoneb 3.0-0.5 Mg/3 Ml) 3 ml NEB Q4H PRN PRN Reason: Shortness Of Breath/wheezing Aspirin (Halfprin) 81 mg PO DAILY [facility] Last Admin: 06/04/19 08:39 Dose: 81 mg Bisacodyl (Dulcolax) 5 mg PO DAILY PRN PRN Reason: Constipation Carvedilol (Coreg) 3.125 mg PO BIDMEALS [facility] Last Admin: 06/04/19 17:51 Dose: 3.125 mg Cholecalciferol (Vitamin D3) 5,000 unit PO DAILY [facility] Last Admin: 06/04/19 08:39 Dose: 5,000 unit Docusate Sodium (Colace) 100 mg PO TID [facility] Last Admin: 06/04/19 14:15 Dose: 100 mg Docusate Sodium (Colace) 100 mg PO BID PRN PRN Reason: Constipation Donepezil HCl (Aricept) 5 mg PO BEDTIME [facility] Last Admin: 06/03/19 21:04 Dose: 5 mg Fish Oil (Fish Oil) 1 gm PO DAILY [facility] Last Admin: 06/04/19 08:40 Dose: 1 gm Gabapentin (Neurontin) 100 mg PO BID [facility] Last Admin: 06/04/19 08:39 Dose: 100 mg Glimepiride (Amaryl) 3 mg PO BIDMEALS [facility] Last Admin: 06/04/19 17:51 Dose: 3 mg Heparin Sodium (Porcine) (Heparin Sodium) 5,000 units SUBCUT Q8H [facility] Last Admin: 06/04/19 14:13 Dose: 5,000 units Hydromorphone HCl (Dilaudid) 0.25 mg IVPUSH Q2H PRN PRN Reason: Pain Last Admin: 06/01/19 03:20 Dose: 0.25 mg Ceftriaxone Sodium 1 gm/ (Sodium Chloride) 100 mls @ 200 mls/hr IV Q24H [facility] Stop: 06/05/19 11:00 Magnesium Sulfate/Dextrose 1 (gm/ Premix) 100 mls @ 100 mls/hr IV ONETIME ONE Stop: 06/04/19 20:11 Ibuprofen (Motrin) 600 mg PO BID PRN PRN Reason: Pain Insulin Human Lispro (Humalog) 0 unit SUBCUT QIDACANDBED [facility]; Protocol Last Admin: 06/04/19 17:50 Dose: 3 units Loratadine (Claritin) 10 mg PO BEDTIME [facility] Last Admin: 06/03/19 21:04 Dose: 10 mg Losartan Potassium (Cozaar) 25 mg PO DAILY [facility] Last Admin: 06/04/19 08:40 Dose: 25 mg Metoprolol Tartrate (Lopressor) 5 mg IVPUSH Q4H PRN PRN Reason: HR >110 Last Admin: 06/01/19 02:08 Dose: 5 mg Ondansetron HCl (Zofran) 4 mg IV Q4H PRN PRN Reason: Nausea/Vomiting Last Admin: 06/03/19 04:21 Dose: 4 mg Oral Electrolytes (Thermotabs) 2 each PO TID [facility] Last Admin: 06/04/19 14:14 Dose: 2 each Pantoprazole Sodium (Protonix) 40 mg PO DAILY@0700 [facility] Last Admin: 06/04/19 06:44 Dose: 40 mg Mirabegron [ (Myrbetriq] 50 Mg) 0 each PO BEDTIME [facility] Last Admin: 06/04/19 01:54 Dose: Not Given Polyethylene Glycol (Miralax) 17 gm PO DAILY PRN PRN Reason: Constipation Quetiapine Fumarate (Seroquel) 12.5 mg PO BEDTIME PRN PRN Reason: Insomnia Last Admin: 06/03/19 21:05 Dose: 12.5 mg Saccharomyces Boulardii (Florastor) 250 mg PO DAILY [facility] Last Admin: 06/04/19 08:40 Dose: 250 mg Senna/Docusate Sodium (Senna Plus) 1 tab PO BID PRN PRN Reason: Constipation Sertraline HCl (Zoloft) 50 mg PO BEDTIME [facility] Last Admin: 06/03/19 21:02 Dose: 50 mg Simvastatin (Zocor) 5 mg PO MOWEFRSA [facility] Last Admin: 06/03/19 21:01 Dose: 5 mg Sodium Chloride (Saline Flush) 10 ml FLUSH ASDIRECTED PRN PRN Reason: Keep Vein Open Last Admin: 05/29/19 12:27 Dose: 10 ml Discontinued Medications Acetaminophen (Tylenol) 650 mg PO TID [facility] Last Admin: 05/30/19 08:04 Dose: Not Given Diltiazem HCl (Cardizem) 10 mg IVPUSH ONETIME ONE Stop: 06/01/19 03:13 Last Admin: 06/01/19 03:19 Dose: 10 mg Docusate Sodium (Colace) 100 mg PO BID PRN PRN Reason: Constipation Docusate Sodium (Colace) 100 mg PO BID PRN PRN Reason: Constipation Glimepiride (Amaryl) 1 mg PO BIDMEALS [facility] Last Admin: 05/31/19 06:47 Dose: 1 mg Glimepiride (Amaryl) 2 mg PO BIDMEALS [facility] Last Admin: 05/31/19 17:30 Dose: 2 mg Heparin Sodium (Porcine) (Heparin Sodium) 4,000 units IVPUSH .BOLUS ONE; Protocol Stop: 06/01/19 07:24 Last Admin: 06/01/19 08:41 Dose: 4,000 units Heparin Sodium (Porcine) (Heparin Sodium) 1,000 units IVPUSH ONETIME ONE Stop: 06/01/19 23:37 Last Admin: 06/01/19 23:57 Dose: 1,000 units Sodium Chloride (Normal Saline) 1,000 mls @ 999 mls/hr IV ONETIME [facility] Last Admin: 05/29/19 12:29 Dose: 999 mls/hr Sodium Chloride (Normal Saline) 1,000 mls @ 75 mls/hr IV ASDIRECTED [facility] Stop: 05/30/19 07:49 Last Admin: 05/29/19 22:51 Dose: 75 mls/hr Magnesium Sulfate 4 gm/ Premix 50 mls @ 12.5 mls/hr IV ONETIME ONE Stop: 05/30/19 12:57 Last Admin: 05/30/19 10:14 Dose: 12.5 mls/hr Heparin Sodium/Dextrose (Heparin 25,000 Units In D5w 500 Ml) 25,000 units in 500 mls @ 17.037 mls/hr IV TITRATE SRAVAN; Protocol Last Admin: 06/02/19 13:33 Dose: 14 units/kg/hr, 19.876 mls/hr Potassium Chloride 10 meq/ (Premix) 100 mls @ 100 mls/hr IV Q1H [facility] Stop: 06/01/19 13:29 Last Admin: 06/01/19 22:20 Dose: Not Given Sodium Chloride (Normal Saline) 1,000 mls @ 50 mls/hr IV ASDIRECTED [facility] Last Admin: 06/01/19 09:40 Dose: 50 mls/hr Potassium Chloride 10 meq/ (Premix) 100 mls @ 100 mls/hr IV Q1H [facility] Stop: 06/01/19 15:29 Last Admin: 06/01/19 11:09 Dose: 100 mls/hr Magnesium Sulfate 2 gm/ Premix 50 mls @ 25 mls/hr IV ONETIME ONE Stop: 06/01/19 11:59 Last Admin: 06/01/19 10:58 Dose: 25 mls/hr Ceftriaxone Sodium 1 gm/ (Sodium Chloride) 100 mls @ 200 mls/hr IV Q24H [facility] Last Admin: 06/04/19 14:13 Dose: 200 mls/hr Magnesium Sulfate 2 gm/ Premix 50 mls @ 25 mls/hr IV ONETIME ONE Stop: 06/02/19 20:08 Last Admin: 06/02/19 18:28 Dose: 25 mls/hr Insulin Human Lispro (Humalog) 0 unit SUBCUT QIDACANDBED PRN; Protocol PRN Reason: Hyperglycemia Last Admin: 05/30/19 22:24 Dose: 6 units Losartan Potassium (Cozaar) 25 mg PO DAILY [facility] Last Admin: 06/02/19 10:48 Dose: Not Given Losartan Potassium (Cozaar) 25 mg PO ONETIME ONE Stop: 05/31/19 11:46 Last Admin: 05/31/19 11:50 Dose: Not Given Miscellaneous Information (Remove Patch) 1 ea TRDERM ONETIME ONE Stop: 06/04/19 03:01 Last Admin: 06/04/19 06:43 Dose: Not Given Lactobacillus Acidophilus 1 Tab # Patient's Own Med# 1 tab PO DAILY [facility] Last Admin: 05/30/19 10:13 Dose: 1 tab Lidocaine/Methyl Malik /Menthol Patch 1 Each #Patient's Own Med# 1 each TP DAILY PRN PRN Reason: Pain Losartan 50 Mg Tab # (Patient's Own Med#) 0 each PO DAILY [facility] Last Admin: 05/30/19 10:15 Dose: 0.5 each Non-Formulary Medication (Polyethylene Glycol 3350 [Polyethylene Glycol 3350]) 17 gm PO ASDIRECTED [facility] Pravastatin 10 Mg # (Patient's Own Med#) 10 mg PO MOWEFRSA [facility] Last Admin: 05/30/19 11:46 Dose: Not Given Sertraline 50 Mg Tab (#Patient's Own Med#) 50 each PO BEDTIME [facility] Last Admin: 05/30/19 21:36 Dose: Not Given Tylenol 650mg Tabs * (Own Med) 1 each PO TID [facility] Last Admin: 05/30/19 10:13 Dose: 1 each Tylenol 650mg Tabs * (Own Med) 1 each PO ONETIME ONE Stop: 05/29/19 22:46 Last Admin: 05/29/19 22:51 Dose: 1 each Omeprazole (Omeprazole) 20 mg PO DAILY@0700 [facility] Omeprazole (Omeprazole) 20 mg PO DAILY@0700 [facility] Last Admin: 05/30/19 06:47 Dose: 20 mg Ondansetron HCl (Zofran) 4 mg IVPUSH ONETIME ONE Stop: 05/29/19 14:12 Last Admin: 09/16/19 14:23 Dose: 4 mg Oral Electrolytes (Thermotabs) 1 each PO TID [facility] Last Admin: 06/02/19 08:57 Dose: 1 each Pantoprazole Sodium (Protonix) 40 mg PO DAILY@0700 [facility] Mirabegron [ (Myrbetriq] 50 Mg) 0 each PO BEDTIME [facility] Last Admin: 05/31/19 07:42 Dose: Not Given Potassium Chloride (Klor-Con M20) 60 meq PO ONETIME ONE Stop: 06/01/19 12:01 Last Admin: 06/01/19 12:39 Dose: 60 meq Quetiapine Fumarate (Seroquel) 12.5 mg PO BEDTIME PRN PRN Reason: Insomnia Quetiapine Fumarate (Seroquel) 6.25 mg PO BEDTIME PRN PRN Reason: Insomnia Saccharomyces Boulardii (Florastor) 250 mg PO DAILY [facility] Scopolamine (Transderm-Scop) 1.5 mg TRDERM ONETIME ONE Stop: 06/01/19 03:13 Last Admin: 06/01/19 03:19 Dose: 1.5 mg Scopolamine (Transderm-Scop) 1.5 mg TRDERM Q72H PRN PRN Reason: N/V Sertraline HCl (Zoloft) 50 mg PO BEDTIME [facility] Last Admin: 05/31/19 05:07 Dose: Not Given Sertraline HCl (Zoloft) 50 mg PO BEDTIME [facility] Last Admin: 06/01/19 21:45 Dose: 50 mg Sertraline HCl (Zoloft) 50 mg PO ONETIME ONE Stop: 05/30/19 23:01 Sertraline HCl (Zoloft) 50 mg PO ONETIME ONE Stop: 05/30/19 23:01 Last Admin: 05/30/19 22:55 Dose: 50 mg Simvastatin (Zocor) 5 mg PO MOWEFRSA [facility] Last Admin: 05/31/19 15:26 Dose: Not Given - Exam General: Reports: Alert, Cooperative, No Acute Distress HEENT: Reports: Pupils Equal, Pupils Reactive, EOMI, Mucous Membr. Moist/[place] Neck: Reports: Supple Lungs: Reports: Clear to Auscultation, Normal Respiratory Effort Cardiovascular: Reports: Regular Rate, Regular Rhythm GI/Abdominal Exam: Normal Bowel Sounds, Soft, Non-Tender, No Organomegaly, No Distention, No Abnormal Bruit (Female) Exam: Deferred Rectal (Female) Exam: Deferred Back Exam: Reports: Normal Inspection, Decreased Range of Motion Extremities: Normal Inspection, Normal Range of Motion, Non-Tender, No Pedal Edema, Normal Capillary Refill Skin: Reports: Warm, Dry, Intact Neurological: Reports: No New Focal Deficit, Normal Gait Psy/Mental Status: Reports: Alert, Normal Affect, Normal Mood
[2019-06-04] MEDS: Donepezil 10 MG Tab PO SCH (20:53)
[2019-06-04] MEDS: Sertraline 50 MG Tab PO SCH (20:53)
[2019-06-04] MEDS: Loratadine 10 MG Tab PO SCH (20:54)
[2019-06-04] MEDS: QUEtiapine 25 MG Tab PO PRN (21:06)
[2019-06-05] MEDS: Pantoprazole 40 MG Tab.CR PO SCH (06:46)
[2019-06-05] MEDS: Glimepiride 2 MG Tab PO SCH (06:46)
[2019-06-05] MEDS: Carvedilol 3.125 MG Tab PO SCH (06:47)
[2019-06-05] MEDS: Heparin Sodium 5,000 Units/ML Vial SUBCUT SCH (06:47)
[2019-06-05 06:49] VITALS: PULSE 80
[2019-06-05] MEDS ORDERED: Bisacodyl 10 MG Supp RECTAL ONE (07:00)
[2019-06-05 08:47] VITALS: BP 131/66
[2019-06-05] MEDS: Insulin Lispro 100 Units/ML 3 ML Vial SUBCUT SCH ×2 (08:56→12:03)
[2019-06-05] MEDS: Gabapentin 100 MG Cap PO SCH (08:57)
[2019-06-05] MEDS: Losartan 25 MG Tab PO SCH (08:58)
[2019-06-05] MEDS: Docusate Sodium 100 MG Cap PO SCH (08:58)
[2019-06-05] MEDS: Aspirin 81 MG Tab.EC PO SCH (08:58)
[2019-06-05] MEDS: Saccharomyces Boulardii (Probiotic) 250 MG Cap PO SCH (08:58)
[2019-06-05] MEDS: Cholecalciferol (Vitamin D3) 5,000 UNIT Tab PO SCH (08:58)
[2019-06-05] MEDS: Fish Oil/Omega-3 Fatty Acids 1 Gm Cap PO SCH (08:58)
[2019-06-05] MEDS: Sodium Chloride/Potassium Chloride Tab PO SCH (08:58)
[2019-06-05] MEDS: Acetaminophen 325 MG Tab PO SCH (08:59)
[2019-06-05] MEDS ORDERED: cefTRIAXone 1 GM in Sodium Chloride 0.9% 100 ML IV SCH (09:00)
== END 2019-06-05 13:05 | disposition other institution (70) | DRG 947 ==
LOC: JD.ED 11:36 → JD.MS 16:05 → OBSVTOIN 05-30 11:44 → JD.MS 05-30 14:14
PROVIDERS: ADMIT Internal Medicine; ATTEND Internal Medicine
DX: R11.2 Nausea with vomiting, unspecified (principal); R41.82 Altered mental status, unspecified; I21.4 Non-ST elevation (NSTEMI) myocardial infarction; E87.1 Hypo-osmolality and hyponatremia; R40.0 Somnolence; E11.9 Type 2 diabetes mellitus without complications; K59.09 Other constipation; E78.00 Pure hypercholesterolemia, unspecified; F01.50 Vascular dementia, unspecified severity, without behavioral disturbance, psychotic disturbance, mood disturbance, and anxiety; E83.42 Hypomagnesemia; T50.2X5A Adverse effect of carbonic-anhydrase inhibitors, benzothiadiazides and other diuretics, initial encounter; T50.905A Adverse effect of unspecified drugs, medicaments and biological substances, initial encounter; Z66 Do not resuscitate; T42.4X5A Adverse effect of benzodiazepines, initial encounter; T42.6X5A Adverse effect of other antiepileptic and sedative-hypnotic drugs, initial encounter; T40.4X5A Adverse effect of other synthetic narcotics, initial encounter; T43.215A Adverse effect of selective serotonin and norepinephrine reuptake inhibitors, initial encounter; I10 Essential (primary) hypertension; E78.5 Hyperlipidemia, unspecified; F32.9 Major depressive disorder, single episode, unspecified; E55.9 Vitamin D deficiency, unspecified; E11.65 Type 2 diabetes mellitus with hyperglycemia; I48.0 Paroxysmal atrial fibrillation; R26.9 Unspecified abnormalities of gait and mobility; Z87.01 Personal history of pneumonia (recurrent); Z87.440 Personal history of urinary (tract) infections; Z98.49 Cataract extraction status, unspecified eye; Z79.82 Long term (current) use of aspirin; Z79.84 Long term (current) use of oral hypoglycemic drugs; Z79.899 Other long term (current) drug therapy
CPT/HCPCS: 36415 ×2; 74019; 80048; 81001; 82306; 82962; 83735; 85025; 86140 ×2; 87641; 96361; 96374; 97162; 99285; A9270 ×6; J2405; J3475; J7040 ×2; 70450; 70450-26; 80061; 82553; 83036; 84484; 85027; 85730; 87086; 87088; 87186; 92610-GN; 93005; 96125-GN; 96360; 96365; 96375; 97110-GO; 97116-GP; 97161-GP; 97165-GO; 97530-GO; 97530-GP; 97535-GO; 99284; G0378; G0515-GN; J0696; J1170; J1644; J1815-GY; J3480; J3490; J7030